=== PATIENT | female | born 1955 | race Caucasian/White ===

== ENCOUNTER 2016-03-21 10:35 | Emergency (ER) | payer OTHER ==
[2016-03-21 10:45] VITALS: PULSE 81; BMI 24.7
[2016-03-21] MEDS ORDERED: KETOROLAC TROMETHAMINE 30 MG/1 ML VIAL IVPUSH ONE (11:20)
[2016-03-21] MEDS ORDERED: SODIUM CHLORIDE 1,000 ML IV ONE (11:20)
--- NOTE | 2016-03-21 11:28 | PDOC ---
History of Present Illness - General History Source: Patient, Old Records Exam Limitations: No Limitations - History of Present Illness Initial Comments: 03/21/16 11:31 The patient is a 60-year-old woman, with a significant past medical history of hypertension, hypercholesterolemia, gastritis, recurrent urinary tract infections, kidney stones (recent outpatient CT scan showed bilateral kidney stones (02/16/2016) and asthma who presents to the emergency department for further evaluation of right flank pain. No trauma. No recent strenuous activity. She reports she was in her usual state of health when she was at home drinking water, coincidentally performing a home 24 hour urine sample when she suddenly experienced right flank pain. She states that her pain has been constant since onset, and has intensified throughout onset (10/04) in severity. She reports associated symptoms of dysuria, described as burning sensations, urinary frequency(output of a few drops) and hematuria (no clots noted). She admits to a history of urinary tract infections and kidney stones s/p kidney stone removal in (1985) and reports her symptoms are consistent with her typical UTIs. She took a Tylenol 3 tablet this morning, without much relief. She denies fever, chills, diaphoresis, generalized weakness. She denies chest pain, shortness of breath, cough She denies abdominal pain, nausea, vomiting, diarrhea, vaginal discharge/ vaginal bleeding Allergies: Morphine. Apples Carrots. Strawberries. Past Surgical History: Appendectomy. CHolecystectomy. Hernia repair. Social History: No tobacco, ETOH and recreational drug use. Primary Care Physician: Hollis Barron [phone] Urologist: Gregory Mckeon [phone] <Genie Abebe - Last Filed: 03/21/16 14:01> <Santiago Taylor - Last Filed: 03/21/16 14:27> - General Chief Complaint: Pain Stated Complaint: LOWER PELVIC PAIN, BLOOD IN URINE Time Seen by Provider: 03/21/16 11:00 Past History <Genie Abebe - Last Filed: 03/21/16 14:01> - Past Medical History Anemia: No Asthma: Yes Cancer: No Cardiac Disorders: Yes CVA: No COPD: No CHF: No Dementia: No Diabetes: No GI Disorders: Yes (gastritis) Disorders: Yes (X5 stones) HTN: Yes Hypercholesterolemia: Yes Kidney Stones: Yes Suicide Attempt (Hx): No Seizures: No Thyroid Disease: Yes - Surgical History Abdominal Surgery: Yes (HERNIA) Appendectomy: Yes Cardiac Surgery: No Cholecystectomy: Yes Lung Surgery: No Neurologic Surgery: No Orthopedic Surgery: No - Reproductive History Cervical CA: No Dysfunctional Uterine Bleeding: No Ectopic : No Endometrial CA: No Polycystic Ovaries: No Tubal Ligation: No - Psycho/Social/Smoking Cessation Hx Anxiety: No Suicidal Ideation: No Smoking History: Never smoked Have you smoked in the past 12 months: No Hx Alcohol Use: No Drug/Substance Use Hx: No Substance Use Type: None <Santiago Taylor - Last Filed: 03/21/16 14:27> - Past Medical History Allergies/Adverse Reactions: Allergies Allergy/AdvReac Type Severity Reaction Status Date / Time morphine Allergy Intermediate Itching Verified 03/21/16 10:45 APPLES Allergy Severe Uncoded 03/21/16 10:45 CARROTS Allergy Severe Uncoded 03/21/16 10:45 STRAWBERRIES Allergy Severe Uncoded 03/21/16 10:45 Home Medications: Ambulatory Orders Duloxetine HCl [Cymbalta -] 60 mg PO DAILY 03/18/13 Omeprazole [Prilosec (RX)] 40 mg PO BID 02/22/15 Cephalexin Monohydrate [Keflex -] 500 mg PO BID #14 capsule 03/21/16 Review of Systems - Review of Systems Constitutional: No: Chills, Fever Respiratory: No: Cough, Shortness of Breath Cardiac (ROS): No: Chest Pain ABD/GI: No: Diarrhea, Nausea, Vomiting : Yes: See HPI, Burning, Dysuria, Flank Pain, Hematuria All Other Systems: Reviewed and Negative <Santiago Taylor - Last Filed: 03/21/16 14:27> *Physical Exam - Vital Signs Last Vital Signs Temp Pulse Resp BP Pulse Ox 98.0 F 81 20 146/86 100 03/21/16 10:42 03/21/16 10:42 03/21/16 10:42 03/21/16 10:42 03/21/16 10:42 - Physical Exam Comments: 03/21/16 11:32 GENERAL: The patient is awake, alert, and fully oriented, in no acute distress. HEAD: Normal with no signs of trauma. EYES: Pupils equal, round and reactive to light, extraocular movements intact, sclera anicteric, conjunctiva clear with no pallor. ENT: Ears normal, nares patent, oropharynx clear without exudates. Moist mucous membranes. NECK: Normal range of motion, supple without lymphadenopathy, JVD, or masses. LUNGS: Breath sounds equal, clear to auscultation bilaterally. No wheeze/ crackles. HEART: Regular rate and rhythm, normal S1 and S2 without murmur or rub. ABDOMEN: Soft, diffuse lower abdominal discomfort to palpation, nondistended. BS wnl. No guarding or rebound. No palpable masses. No hepatosplenomegaly. BACK: +Right CVA tenderness. EXTREMITIES: Normal range of motion, no edema. No clubbing or cyanosis. No cords, erythema, or tenderness. NEUROLOGICAL: Cranial nerves II through XII grossly intact. Normal speech. PSYCH: Normal mood, normal affect. SKIN: Warm, Dry, normal turgor, no rashes or lesions noted. <Genie Abebe - Last Filed: 03/21/16 14:01> - Vital Signs Last Vital Signs Temp Pulse Resp BP Pulse Ox 98.0 F 81 20 146/86 100 03/21/16 10:42 03/21/16 10:42 03/21/16 10:42 03/21/16 10:42 03/21/16 10:42 <Santiago Taylor - Last Filed: 03/21/16 14:27> ED Treatment Course - LABORATORY CBC & Chemistry Diagram: 03/21/16 11:40 03/21/16 11:40 - RADIOLOGY Radiograph Interpretation: 03/21/16 13:24 EXAM: CT/ABDOMEN PELVIS CT W/O CONTR CT IMPRESSION: Axial imaging completed without intravenous and oral contrast with normal lung bases. Cholecystectomy clips noted Normal visualization region of pancreas with no biliary dilation identified No retained stones imaged Symmetry of both kidneys with nonobstructive nephrolithiasis observed in the left kidney. Hyperdense cyst or mass interpolar region left kidney which must be correlated with a renal sonogram. Previous CT scan reviewed from January 2016. Mild hydroureteronephrosis on the right side noted with a 0.3 cm stone lower pole calyx right kidney. Right hydroureter observed with traced ureter to the level of the pelvis accounting for atherosclerotic calcifications in the vessel. Calcified phleboliths are seen in the pelvis. No stones are seen in the region of distal right or left ureter. No stones are imaged in the urinary bladder. <Genie Abebe - Last Filed: 03/21/16 14:01> - LABORATORY CBC & Chemistry Diagram: 03/21/16 11:40 03/21/16 11:40 - RADIOLOGY Radiology Studies Ordered: Category Date Time Status ABDOMEN & PELVIS CT W/O CONTR [CT] Stat CT Scan 03/21/16 11:21 Ordered <KyleejameSantiago - Last Filed: 03/21/16 14:27> Medical Decision Making - Medical Decision Making 03/21/16 13:22 Overhead page to patient's Urologist, Dr. Gregory Mckeon. 03/21/16 13:[address] Mckeon at [phone]. 03/21/16 14:[address] out [address]. Mckeon at [phone]. <Genie Abebe - Last Filed: 03/21/16 14:01> - Medical Decision Making 03/21/16 11:26 A portion of this note was documented by scribe services under my direction. I have reviewed the details of the note, within reason, and agree with the documentation with the following case summary and management plan written by me. 60-year-old female with history of kidney stones and UTI presents with right flank pain since last night associated with urinary frequency/dribbling/ hematuria. No fevers or chills. Afebrile here. Mild discomfort Positive right CVA tenderness, positive lower abdominal tenderness 60-year-old female presents with symptoms that seem most consistent with cystitis, rule out superimposed obstructing stone given her history. Well- appearing without evidence of sepsis. Labs, urinalysis Pain control CT of the abdomen and pelvis Reassess and dispo, is followed by Dr. Melendrez of urology. 03/21/16 13:07 No leukocytosis, chemistries within normal limits. Urinalysis with elevated white blood cells consistent with UTI, CTAP consistent with recently passed stone on the right. Above is consistent with patient's presentation, given no persistently obstructing stone, can be discharged on abx and pain control. 03/21/16 14:15 Patient comfortable, ambulating independently in the ED. Case discussed with Dr. Mckeon, agrees patient can be discharged on antibiotics and follow- up with him in the office. Patient agrees with plan, understands return criteria. <Santiago Taylor - Last Filed: 03/21/16 14:27> *DC/Admit/Observation/Transfer - Attestations Scribe Attestion: 03/21/16 11:32 Documentation prepared by Genie Abebe, acting as medical reviewer for Santiago Taylor MD. <Genie Abebe - Last Filed: 03/21/16 14:01> <Santiago Taylor - Last Filed: 03/21/16 14:27> Diagnosis at time of Disposition: Flank pain, Cystitis, Kidney stone on right side - Discharge Dispostion Disposition: HOME Condition at time of disposition: Improved - Prescriptions Prescriptions: Cephalexin Monohydrate [Keflex -] 500 mg PO BID #14 capsule - Referrals Referrals: Hollis Barron MD [Primary Care Provider] - Gregory Mckeon MD [Staff Physician] - - Patient Instructions Printed Discharge Instructions: DI for Urinary Tract Infection (UTI), DI for Kidney Stones Additional Instructions: Activity as tolerated. Stay hydrated. A urine test shows evidence of infection, take Keflex as prescribed for one week. Blood tests showed no acute abnormalities, but a CAT scan showed that you've likely passed a stone on the right side. Tylenol 1000 mg every 8 hours and/or ibuprofen 600 mg every 8 hours as needed for pain. Continue your medications as previously prescribed by your physician. You should follow up with Dr. Geronimo doctor as soon as possible regarding today's emergency department visit. Return to the emergency department for any new or concerning symptoms, particularly persistent or worsening pain, fevers or chills, difficulty urinating.
[2016-03-21] MEDS ORDERED: KETOROLAC TROMETHAMINE 30 MG/1 ML VIAL ONE (11:39)
[2016-03-21 11:53] LABS: BASOPHIL 0.8 % (0-2.0); EOSINOPHIL 1.5 % (0-4.5); MCH 26.8 pg (25.7-33.7); MCHC 32.8 g/dl (32.0-36.0); MEAN CELL VOLUME 81.9 fl (80-96); PLATELET COUNT 242 K/MM3 (134-434); RDW 13.5 % (11.6-15.6); WHITE BLOOD COUNT 9.3 K/mm3 (4.0-10.0)
[2016-03-21 11:58] LABS: URINE APPEARANCE CLEAR; URINE BILIRUBIN NEGATIVE (NEGATIVE); URINE COLOR STRAW; URINE GLUCOSE (UA) NEGATIVE (NEGATIVE); URINE KETONE NEGATIVE (NEGATIVE); URINE NITRITE NEGATIVE (NEGATIVE); URINE PROTEIN NEGATIVE (NEGATIVE); URINE UROBILINOGEN NEGATIVE E.U./dl (0.2-1.0)
[2016-03-21 12:00] LABS: URINE BLOOD 3+ (NEGATIVE); URINE LEUK ESTERASE 3+ (NEGATIVE)
[2016-03-21 12:04] LABS: URINE BACTERIA FEW /hpf (NONE SEEN); URINE RBC 2 /hpf (0-3); URINE WBC 201 /hpf (3-5)
[2016-03-21] MEDS ORDERED: CEFTRIAXONE 1 GM in DEXTROSE 5%-WATER - 50 ML IVPB ONE (12:17)
[2016-03-21] MEDS ORDERED: CEFTRIAXONE 50 ML ONE (12:19)
[2016-03-21 12:39] LABS: ALBUMIN 3.8 g/dl (3.4-5.0); ALK PHOS 111 U/L (45-117); ANION GAP 7 (8-16); BILIRUBIN,TOTAL 0.5 mg/dL (0.2-1.0); CALCIUM 9.2 mg/dL (8.5-10.1); CO2 28 mmol/L (21-32); CREATININE 0.7 mg/dL (0.55-1.02); GLUCOSE,RANDOM 86 mg/dL (74-106); SGPT/ALT 117 U/L (12-78); TOT PROT 7.5 g/dl (6.4-8.2)
[2016-03-21 12:43] LABS: SGOT/AST 109 U/L (15-37)
[2016-03-21] MEDS ORDERED: HYDROmorphone HCL CARPU-JECT 1 MG/1 ML DISP.SYRIN IVPUSH ONE (13:07)
[2016-03-21] MEDS ORDERED: HYDROmorphone HCL CARPU-JECT 1 MG/1 ML DISP.SYRIN ONE (13:11)
[2016-03-21 14:46] VITALS: BP 140/80; TEMP 98
--- NOTE | 2016-03-22 22:21 | PDOC ---
*Physical Exam - Vital Signs Last Vital Signs Temp Pulse Resp BP Pulse Ox 98 F 81 17 140/80 97 03/21/16 14:45 03/21/16 14:45 03/21/16 14:45 03/21/16 14:45 03/21/16 14:45 ED Treatment Course - LABORATORY CBC & Chemistry Diagram: 03/21/16 11:40 03/21/16 11:40 - ADDITIONAL ORDERS Additional order review: 03/21/16 11:19 Urine Culture - Preliminary Urine - Urine Clean Catch Lactose Fermenting Neg Bacilli 03/21/16 11:40 RBC 4.75 MCV 81.9 MCHC 32.8 RDW 13.5 MPV 9.0 Neutrophils % 73.0 Lymphocytes % 19.4 D Monocytes % 5.3 Eosinophils % 1.5 Basophils % 0.8 - Medications Given in the ED: ED Medications Discontinued Medications Generic Name Dose Route Start Last Admin Trade Name Freq PRN Reason Stop Dose Admin Hydromorphone HCl 0.5 mg 03/21/16 13:07 03/21/16 13:15 Dilaudid Injection - IVPUSH 03/21/16 13:08 0.5 mg ONCE ONE Administration Sodium Chloride 1,000 mls @ 1,000 mls/hr 03/21/16 11:20 03/21/16 11:38 Normal Saline - IV 03/21/16 12:19 1,000 mls/hr ONCE ONE Administration Ceftriaxone Sodium 1 gm/ 50 mls @ 100 mls/hr 03/21/16 12:17 03/21/16 13:07 Dextrose IVPB 03/21/16 12:46 100 mls/hr ONCE ONE Administration Ketorolac Tromethamine 30 mg 03/21/16 11:20 03/21/16 11:52 Toradol Injection - IVPUSH 03/21/16 11:21 30 mg ONCE ONE Administration *DC/Admit/Observation/Transfer Diagnosis at time of Disposition: Flank pain, Cystitis, Kidney stone on right side - Discharge Dispostion Disposition: HOME Condition at time of disposition: Improved - Prescriptions Prescriptions: Cephalexin Monohydrate [Keflex -] 500 mg PO BID #14 capsule - Referrals Referrals: Hollis Barron MD [Primary Care Provider] - Gregory Mckeon MD [Staff Physician] - - Patient Instructions Printed Discharge Instructions: DI for Kidney Stones, DI for Urinary Tract Infection (UTI) Additional Instructions: Activity as tolerated. Stay hydrated. A urine test shows evidence of infection, take Keflex as prescribed for one week. Blood tests showed no acute abnormalities, but a CAT scan showed that you've likely passed a stone on the right side. Tylenol 1000 mg every 8 hours and/or ibuprofen 600 mg every 8 hours as needed for pain. Continue your medications as previously prescribed by your physician. You should follow up with Dr. Geronimo doctor as soon as possible regarding today's emergency department visit. Return to the emergency department for any new or concerning symptoms, particularly persistent or worsening pain, fevers or chills, difficulty urinating. - Post Discharge Activity
--- NOTE | 2016-03-23 10:14 | PDOC ---
Patient Follow-up (Call Back) - Post ED Follow - Up Chief Complaint: Urinary Problem Condition at time of discharge: Improved Disposition at time of original discharge: HOME - Disposition Additional Instructions/Notes: Patient's urine culture shows positive for Escherichia coli which may be resistant to cephalosporins. I called patient at home and states was unable to get the prescription since it was not sent to the right pharmacy. I explained to patient that I sent it to [facility] and patient is to begin Macrobid today. Patient fully understands and I also gave patient the fast track number if she has any difficulty with her prescription today.
== END 2016-03-21 14:58 | disposition home or self-care (01) ==
LOC: JER 10:35
PROC: 3E03329 Introduction of Other Anti-infective into Peripheral Vein, Percutaneous Approach (ICD-10-PCS; principal; 2016-03-21)
PROC: 3E033NZ Introduction of Analgesics, Hypnotics, Sedatives into Peripheral Vein, Percutaneous Approach (ICD-10-PCS; 2016-03-21)
PROC: 3E0333Z Introduction of Anti-inflammatory into Peripheral Vein, Percutaneous Approach (ICD-10-PCS; 2016-03-21)
PROC: 3E0337Z Introduction of Electrolytic and Water Balance Substance into Peripheral Vein, Percutaneous Approach (ICD-10-PCS; 2016-03-21)
DX: N20.0 Calculus of kidney (principal); Z87.442 Personal history of urinary calculi; I10 Essential (primary) hypertension; E78.00 Pure hypercholesterolemia, unspecified; J45.909 Unspecified asthma, uncomplicated; K52.9 Noninfective gastroenteritis and colitis, unspecified
CPT/HCPCS: 36415; 74176-TC; 80053; 81003; 81015; 85025; 87086; 87186; 96361; 96365; 96375; 99284-25

== ENCOUNTER 2017-06-03 08:47 | Inpatient (IN) | payer OTHER ==
[2017-06-03 08:51] VITALS: BMI 28.0
--- NOTE | 2017-06-03 09:34 | PDOC ---
Attending Attestation - Resident Resident Name: Arias Lopez - ED Attending Attestation I have performed the following: I have examined & evaluated the patient, The case was reviewed & discussed with the resident, I agree w/resident's findings & plan, Exceptions are as noted - Medical Decision Making 06/03/17 09:34 61 yo with h/o stone and pyelo here with dysuria and flank pain. plan ua urine cultures. labs and bedside ultrasound evaluate for hydronephrosis. 06/03/17 11:35 Focused ED ultrasound renal, indication: Right-sided flank pain rule out hydronephrosis Bilateral kidneys scanned into planes with curvilinear probe No hydronephrosis noted bilaterally right kidney measured 9.2 cm left kidney length 10.2 cm Bladder scanned into planes no urinary retention bladder volume was 139 mL Impression: Normal renal ultrasound no hydronephrosis <Alondra Boyd - Last Filed: 06/03/17 11:35> - HPI HPI: 06/03/17 09:35 61 yo F kidney stones, pyelonephritis (resistant with Klebsiella and ESBL), HTN , HLD who presents with 3 weeks of dysuria associated R sided flank pain. Patient reports pain feels similar to prior kidney stones. Last reported episode was 1 year ago. Patient endorses nausea and vomiting however denies fever or chills. Allergies: Morphine, Sulfa abx Past surgical hx: Hysterectomy, Hernia repair,Cholecystectomy,Appendectomy, Tonsillectomy,Left cataract Social hx: None PCP: None - Physicial Exam PE: 06/03/17 09:38 GENERAL: Awake, alert, and fully oriented, in no acute distress HEAD: No signs of trauma EYES: PERRLA, EOMI, sclera anicteric, conjunctiva clear ENT: Auricles normal inspection, nares patent, Moist mucosa NECK: Normal ROM, supple, no lymphadenopathy, JVD, or masses LUNGS: Breath sounds equal, clear to auscultation bilaterally. No wheezes, and no crackles HEART: Regular rate and rhythm, normal S1 and S2, no murmurs, rubs or gallops ABDOMEN: Soft, nontender, normoactive bowel sounds. No guarding, no rebound. No masses. +Mild suprapubic tenderness SKIN: Warm, Dry, normal turgor, no rashes or lesions noted. - Medical Decision Making 06/03/17 09:39 Documentation prepared by Charisma Bianchi, acting as medical billing clerk for Alondra Boyd MD <Charisma Bianchi - Last Filed: 06/03/17 11:38>
[2017-06-03] MEDS ORDERED: SODIUM CHLORIDE 1,000 ML IV STA (09:42)
[2017-06-03] MEDS ORDERED: ONDANSETRON 4 MG/2 ML VIAL IVPUSH ONE (09:42)
[2017-06-03] MEDS ORDERED: KETOROLAC TROMETHAMINE 30 MG/1 ML VIAL IVPUSH ONE (09:42)
--- NOTE | 2017-06-03 09:45 | PDOC ---
History of Present Illness <Alondra Boyd - Last Filed: 06/03/17 11:37> - History of Present Illness Initial Comments: 06/03/17 09:43 The patient is a 61 year old female with a history of Kidney Stones and Pyelonephritis who presents for evaluation of right flank pain and dysuria. The patient reports a 3 week history of burning pain on urination with associated right sided sharp flank pain that she states is similar to her prior kidney stones. She notes worsening symptoms over the past week prompting her presentation to the ED for evaluation. She endorses some nausea and lower abdominal discomfort, but otherwise denies fevers, chills, SOB, chest pain, vomiting, or changes with bowel movements. <Arias Lopez - Last Filed: 06/03/17 14:18> - General Chief Complaint: Pain Stated Complaint: KIDNEY STONE Time Seen by Provider: 06/03/17 09:10 Past History <Alondra Boyd - Last Filed: 06/03/17 11:37> - Past Medical History Anemia: No Asthma: Yes Cancer: No Cardiac Disorders: Yes CVA: No COPD: No CHF: No DVT: No Dementia: No Diabetes: No GI Disorders: Yes (gastritis) Disorders: Yes (X5 stones) HTN: Yes Hypercholesterolemia: Yes Kidney Stones: Yes Seizures: No Thyroid Disease: Yes - Surgical History Abdominal Surgery: Yes (HERNIA) Appendectomy: Yes Cardiac Surgery: No Cholecystectomy: Yes Lung Surgery: No Neurologic Surgery: No Orthopedic Surgery: No - Reproductive History Cervical CA: No Dysfunctional Uterine Bleeding: No Ectopic : No Endometrial CA: No Polycystic Ovaries: No Tubal Ligation: No - Suicide/Smoking/Psychosocial Hx Smoking History: Never smoked Have you smoked in the past 12 months: No Number of Cigarettes Smoked Daily: 0 Information on smoking cessation initiated: No Hx Alcohol Use: No Drug/Substance Use Hx: No Substance Use Type: None Hx Substance Use Treatment: No <Arias Lopez - Last Filed: 06/03/17 14:18> - Past Medical History Allergies/Adverse Reactions: Allergies Allergy/AdvReac Type Severity Reaction Status Date / Time morphine Allergy Intermediate Itching Verified 06/03/17 08:48 Sulfa (Sulfonamide Allergy Mild Verified 06/03/17 08:48 Antibiotics) APPLES Allergy Severe Uncoded 06/03/17 08:48 CARROTS Allergy Severe Uncoded 06/03/17 08:48 STRAWBERRIES Allergy Severe Uncoded 06/03/17 08:48 Home Medications: Ambulatory Orders Unobtainable [Unobtainable] 06/03/17 Review of Systems - Review of Systems Comments:: 06/03/17 09:45 Constitutional: No fevers, chills, fatigue, malaise HEENT: No Rhinorrhea, nasal congestion, visual changes Cardiovascular: No chest pain, syncope, palpitations, lightheadedness Respiratory: No Cough, SOB, Hemoptysis, Gastrointestinal: Lower abdominal discomfort, nausea. No Vomiting, Constipation , Diarrhea, Melena Genitourinary: Dysuria, Right sided flank pain. No Frequency, Urgency, Hesitancy , Hematuria, Musculoskeletal: No Myalgia, arthralgia Skin: No rashes, itching, bruising, pallor Neurologic: No Headache, Dizziness, Numbness, Weakness, or Tingling Psychiatric: No Hallucinations. No SI or HI <Arias Lopez - Last Filed: 06/03/17 14:18> *Physical Exam - Vital Signs Last Vital Signs Temp Pulse Resp BP Pulse Ox 98.2 F 70 18 128/77 100 06/03/17 08:48 06/03/17 08:48 06/03/17 08:48 06/03/17 08:48 06/03/17 08:48 <Alondra Boyd - Last Filed: 06/03/17 11:37> - Vital Signs Last Vital Signs Temp Pulse Resp BP Pulse Ox 98.2 F 70 18 128/77 100 06/03/17 08:48 06/03/17 08:48 06/03/17 08:48 06/03/17 08:48 06/03/17 08:48 - Physical Exam Comments: 06/03/17 09:48 General Appearance: Nourished. No Apparent Distress HEENT: EOMI, SUN. No Pharyngeal Erythema, Tonsillar Exudate, Tonsillar Erythema Neck: No Cervical Lymphadenopathy Respiratory/Chest: Lungs Clear, Normal Breath Sounds. No Crackles, Rales, Rhonchi, Wheezing Cardiovascular: Regular Rhythm, Regular Rate. No Murmur, Gallops, Rubs Gastrointestinal/Abdominal: Normal Bowel Sounds, Soft. Mild suprapubic tenderness to palpation. No Guarding, Rebound, Musculoskeletal: R CVA Tenderness on exam. No L CVA Tenderness Extremity: Normal Capillary Refill Integumentary: Normal Color, Dry, Warm Neurologic: Fully Oriented, Alert, Normal Mood/Affect, Normal Response, <Arias Lopez - Last Filed: 06/03/17 14:18> Procedures - Bedside Ultrasound Other: Renal US - no hydronephrosis. bladder nondistended <Alondra Boyd - Last Filed: 06/03/17 11:37> ED Treatment Course - LABORATORY CBC & Chemistry Diagram: 06/03/17 09:38 06/03/17 09:38 - ADDITIONAL ORDERS Additional order review: Laboratory Results 06/03/17 06/03/17 10:15 09:38 Sodium 138 Potassium 4.9 Chloride 104 Carbon Dioxide 30 Anion Gap 4 L BUN 14 Creatinine 0.7 Creat Clearance w eGFR > 60 Random Glucose 98 Calcium 9.1 Total Bilirubin 0.2 D AST 23 ALT 29 Alkaline Phosphatase 92 Total Protein 7.7 Albumin 3.7 Urine Color Ltyellow Urine Appearance Clear Urine pH 8.0 Ur Specific [place] 1.009 Urine Protein Negative Urine Glucose (UA) Negative Urine Ketones Negative Urine Blood Negative Urine Nitrite Negative Urine Bilirubin Negative Urine Urobilinogen Negative Ur Leukocyte Esterase 2+ H Urine WBC (Auto) 30 Urine RBC (Auto) <1 Ur Epithelial Cells Rare Urine Bacteria Rare Urine Mucus Rare Urine Yeast Road Production General Manager 06/03/17 09:38 RBC 5.23 H MCV 81.0 MCHC 32.9 RDW 14.2 MPV 8.7 Neutrophils % 52.5 Lymphocytes % 36.8 D Monocytes % 6.8 Eosinophils % 3.0 Basophils % 0.9 - Medications Given in the ED: ED Medications Discontinued Medications Generic Name Dose Route Start Last Admin Trade Name Andrewq PRN Reason Stop Dose Admin Sodium Chloride 1,000 mls @ 1,000 mls/hr 06/03/17 09:42 06/03/17 10:00 Normal Saline - IV 06/03/17 10:41 1,000 mls/hr ASDIR STA Administration Ketorolac Tromethamine 30 mg 06/03/17 09:42 06/03/17 09:59 Toradol Injection - IVPUSH 06/03/17 09:43 30 mg ONCE ONE Administration Ondansetron HCl 4 mg 06/03/17 09:42 06/03/17 10:00 Zofran Injection IVPUSH 06/03/17 09:43 4 mg ONCE ONE Administration <OliverAlondra - Last Filed: 06/03/17 11:37> - LABORATORY CBC & Chemistry Diagram: 06/03/17 09:38 06/03/17 09:38 <Arias Lopez - Last Filed: 06/03/17 14:18> Medical Decision Making - Medical Decision Making 06/03/17 09:49 The patient is a 61 year old female with a history of Kidney Stones and Pyelonephritis who presents for evaluation of right flank pain and dysuria. Differential includes but is not limited to: UTI, Pyelonephritis, Kidney Stones , infections, metabolic derangement. Given the patient's history of kidney stones and physical exam, it is likely her symptoms may be due to a UTI and Kidney stone. We will obtain a cbc, cmp, ua, urine culture to evaluation further. We will treat with toradol, zofran, iv fluids and continue to monitor and reassess. 06/03/17 14:14 CBC, cmp are unremarkable. UA demonstrates positive leuk esterase and wbc to 30. Given the patient's UA and physical exam, it is likely her symptoms are due to a pyelonephritis. The patient has a history of ESBL E. Coli from previous cultures and will require admission for iv antibiotics. We discussed the case with Dr. Razo who agrees with iv antibiotics and has recommended ertapenem. We discussed the case with the hospitalist team who accepted the patient for admission. <Arias Lopez - Last Filed: 06/03/17 14:18> *DC/Admit/Observation/Transfer <OliverAlondra - Last Filed: 06/03/17 11:37> - Discharge Dispostion Admit: Yes <Arias Lopez - Last Filed: 06/03/17 14:18> Diagnosis at time of Disposition: Pyelonephritis Urinary tract infection Qualifiers: Urinary tract infection type: site unspecified Hematuria presence: without hematuria Qualified Code(s): N39.0 - Urinary tract infection, site not specified - Discharge Dispostion Condition at time of disposition: Stable
[2017-06-03] MEDS ORDERED: ONDANSETRON 4 MG/2 ML VIAL ONE (09:56)
[2017-06-03] MEDS ORDERED: KETOROLAC TROMETHAMINE 30 MG/1 ML VIAL ONE (09:56)
[2017-06-03 10:21] LABS: BASO % 0.9 % (0-2.0); HEMATOCRIT 42.4 % (32.4-45.2); HEMOGLOBIN 13.9 GM/dL (10.7-15.3); LYMPH % 36.8 % (8-40); MCH 26.6 pg (25.7-33.7); MCHC 32.9 g/dl (32.0-36.0); MEAN PLT VOLUME 8.7 fl (7.5-11.1); MONO % 6.8 % (3.8-10.2); NEUT % 52.5 % (42.8-82.8); PLATELET COUNT 234 K/MM3 (134-434); RBC 5.23 M/mm3 (3.60-5.2); RDW 14.2 % (11.6-15.6); WHITE BLOOD COUNT 4.1 K/mm3 (4.0-10.0)
[2017-06-03 10:27] LABS: ALBUMIN 3.7 g/dl (3.4-5.0); ANION GAP 4 (8-16); CALCIUM 9.1 mg/dL (8.5-10.1); CHLORIDE 104 mmol/L (98-107); CO2 30 mmol/L (21-32); CREATININE 0.7 mg/dL (0.55-1.02); GLUCOSE,RANDOM 98 mg/dL (74-106); POTASSIUM 4.9 mmol/L (3.5-5.1); SGOT/AST 23 U/L (15-37); SGPT/ALT 29 U/L (12-78); SODIUM 138 mmol/L (136-145)
[2017-06-03 10:30] LABS: ALK PHOS 92 U/L (45-117); BILIRUBIN,TOTAL 0.2 mg/dL (0.2-1.0); BLOOD UREA NITROGEN 14 mg/dL (7-18); TOT PROT 7.7 g/dl (6.4-8.2)
[2017-06-03 10:32] LABS: URINE APPEARANCE CLEAR; URINE BILIRUBIN NEGATIVE (<2.0 mg/dL); URINE BLOOD NEGATIVE (NEGATIVE); URINE COLOR LTYELLOW; URINE GLUCOSE (UA) NEGATIVE (NEGATIVE); URINE KETONE NEGATIVE (NEGATIVE); URINE NITRITE NEGATIVE (NEGATIVE); URINE PROTEIN NEGATIVE (NEGATIVE); URINE UROBILINOGEN NEGATIVE mg/dL (0.2-1.0)
[2017-06-03 10:34] LABS: URINE LEUK ESTERASE 2+ (NEGATIVE)
[2017-06-03 10:44] LABS: EPI CELLS RARE /HPF (FEW); URINE BACTERIA RARE /hpf (NONE SEEN); URINE MUCUS RARE
[2017-06-03] MEDS ORDERED: ERTAPENEM SODIUM 1 GM/50 ML PRE-DOCKED IVPB ONE (12:50)
[2017-06-03] MEDS ORDERED: ERTAPENEM SODIUM 1 GM VIAL ONE (13:23)
--- NOTE | 2017-06-03 14:03 | HP ---
CHIEF COMPLAINT: " Right sided flank pain, burning urination " PCP: Hollis Barron Folding Machine Feeder: Dr. Shannan Yun HISTORY OF PRESENT ILLNESS: Patient is a 61 year old female presented to the ED with the chief complaints of " Right sided flank pain, burning urination " x 3 weeks. As per the patient , she has had frequent h/o UTI's, Pyelonephritis and Kidney stones; last pyelo was 04/18/16-was admitted at [facility] was treated for ESBL with Ertapenam. Patient started having fever at home (not measured), chills, right sided flank pain 10/10, non radiating, intermittent, relieved with tylenol +codeine. Pain was also associated with nausea, dysuria, frequent urination but no hematuria or urinary incontinence. Pain progressively got worse hence came in to the ED for further evaluation. Denies headache, trauma, loc, sick contacts, abdominal pain, vomiting. Bowel habit normal. Sleep normal. Appetite decreased. ER course was notable for: (1) Afebrile, hemodynamically stable, no leukocytosis. UA: 2 + Leukocyte esterase, 30 WBC (2) No imaging (3) IV Nacl; Ketorolac, Ertapenam. Recent Travel: None PAST MEDICAL HISTORY: Kidney stones since 30yrs; Hypertension, Hyperlipidemia, Anxiety, Hyperparathyroidism s/p parathyroidectomy PAST SURGICAL HISTORY: Hysterectomy; Hernia repair; Cholecystectomy; Appendectomy; Tonsillectomy; Left cataract; Hyperparathyroidism s/p parathyroidectomy Social History: Smoking: Quit 15 years ago Alcohol: Denies Drugs: Denies Family History: Non contributory Allergies morphine Allergy (Intermediate, Verified 06/03/17 08:48) Itching Sulfa (Sulfonamide Antibiotics) Allergy (Mild, Verified 06/03/17 08:48) APPLES Allergy (Severe, Uncoded 06/03/17 08:48) "THROAT CLOSES" CARROTS Allergy (Severe, Uncoded 06/03/17 08:48) THROAT CLOSES STRAWBERRIES Allergy (Severe, Uncoded 06/03/17 08:48) "THROAT CLOSES" HOME MEDICATIONS: Home Medications Medication Instructions Recorded Unobtainable [Unobtainable] 06/03/17 REVIEW OF SYSTEMS CONSTITUTIONAL: Present: fever, chills Absent: diaphoresis, generalized weakness, malaise, loss of appetite, weight change HEENT: Absent: rhinorrhea, nasal congestion, throat pain, throat swelling, difficulty swallowing, mouth swelling, ear pain, eye pain, visual changes CARDIOVASCULAR: Absent: chest pain, syncope, palpitations, irregular heart rate, lightheadedness , peripheral edema RESPIRATORY: Absent: cough, shortness of breath, dyspnea with exertion, orthopnea, wheezing, stridor, hemoptysis GASTROINTESTINAL: Present: nausea Absent: abdominal pain, abdominal distension, vomiting, diarrhea, constipation, melena, hematochezia GENITOURINARY: Present: dysuria, frequency, flank pain Absent: urgency, hesitancy, hematuria, genital pain MUSCULOSKELETAL: Absent: myalgia, arthralgia, joint swelling, back pain, neck pain SKIN: Absent: rash, itching, pallor HEMATOLOGIC/IMMUNOLOGIC: Absent: easy bleeding, easy bruising, lymphadenopathy, frequent infections ENDOCRINE: Absent: unexplained weight gain, unexplained weight loss, heat intolerance, cold intolerance NEUROLOGIC: Absent: headache, focal weakness or paresthesias, dizziness, unsteady gait, seizure, mental status changes, bladder or bowel incontinence PSYCHIATRIC: Absent: anxiety, depression, suicidal or homicidal ideation, hallucinations. PHYSICAL EXAMINATION Vital Signs - 24 hr 06/03/17 08:48 Temperature 98.2 F Pulse Rate 70 Respiratory 18 Rate Blood Pressure 128/77 O2 Sat by Pulse 100 Oximetry (%) GENERAL: Patient is comfortably sitting in a chair, Awake, alert, and fully oriented, in no acute distress. HEAD: Normal with no signs of trauma. EYES: EOM intact, no pallor or icterus. EARS, NOSE, THROAT: Ears normal. Moist mucous membranes. NECK: Supple. LUNGS: B/L lungs clear, No wheezes, and no crackles. No accessory muscle use. HEART: Regular rate and rhythm, normal S1 and S2 without murmur. ABDOMEN: Soft, nontender, not distended, normoactive bowel sounds, no guarding, no rebound, no masses. No hepatomegaly or splenomegaly. MUSCULOSKELETAL: Normal range of motion at all joints. No bony deformities or tenderness. Right CVA tenderness. UPPER EXTREMITIES: 2+ pulses, warm, well-perfused. No cyanosis. No clubbing. No peripheral edema. LOWER EXTREMITIES: 2+ pulses, warm, well-perfused. No calf tenderness. No peripheral edema. NEUROLOGICAL: Normal speech. Normal gait. PSYCHIATRIC: Cooperative. Good eye contact. Appropriate mood and affect. SKIN: Warm, dry, normal turgor, no rashes or lesions noted, normal capillary refill. Laboratory Results - last 24 hr 06/03/17 06/03/17 06/03/17 09:38 09:38 10:15 WBC 4.1 RBC 5.23 H Hgb 13.9 Hct 42.4 MCV 81.0 MCH 26.6 MCHC 32.9 RDW 14.2 Plt Count 234 MPV 8.7 Neutrophils % 52.5 Lymphocytes % 36.8 D Monocytes % 6.8 Eosinophils % 3.0 Basophils % 0.9 Sodium 138 Potassium 4.9 Chloride 104 Carbon Dioxide 30 Anion Gap 4 L BUN 14 Creatinine 0.7 Creat Clearance w eGFR > 60 Random Glucose 98 Calcium 9.1 Total Bilirubin 0.2 D AST 23 ALT 29 Alkaline Phosphatase 92 Total Protein 7.7 Albumin 3.7 Urine Color Ltyellow Urine Appearance Clear Urine pH 8.0 Ur Specific [place] 1.009 Urine Protein Negative Urine Glucose (UA) Negative Urine Ketones Negative Urine Blood Negative Urine Nitrite Negative Urine Bilirubin Negative Urine Urobilinogen Negative Ur Leukocyte Esterase 2+ H Urine WBC (Auto) 30 Urine RBC (Auto) <1 Ur Epithelial Cells Rare Urine Bacteria Rare Urine Mucus 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 # Possible Pyelonephritis, H/O ESBL H/o frequent pyelonephritis-last pyelo 04/18/16, presents with fever, chills, rigors, burning urination, Right sided CVA tenderness UA showed 2 + Leukocyte esterase, 30 WBC Urine culture pending Admit Inpatient for IV antibiotics IV NS @ 100mls/hr x 1 bag then 75mls/hr IV Ertapenam- ID consult appreciated; has h/o ESBL 04/18/[address] Mckeon consult requested. Pt last saw him at the office a couple of months ago. Change antibiotics as per c/s. No imaging done at this time. If she spikes fever, has worsening flank pain, would consider CT abdomen/Pelvis. Last CT abd/Pelvis 08/19/16: 2 cm Right adrenal adenomal. B/L non obstructing renal calculi. # Hypertension-controlled # Hyperlipidemia # Anxiety # Asthma-not in exacerbation # All medications needs to be confirmed with pharmacy. To be resumed once confirmed. # FEN IV NS @ 100mls/hr then 75 mls.hr Electrolytes WNL Sodium controlled diet # Prophylaxis For DVT: On Heparin 5000 IU sq TID For GI: Not indicated # Code Status: Full Code # Dispo: Duration of stay 2-3 days for IV Antibiotics. Illness, Investigation and Plan of care explained to the patient. She verbalized understanding. Case discussed with Dr. Ely. Visit type - Emergency Visit Emergency Visit: Yes ED Registration Date: 06/03/17 Care time: The patient presented to the Emergency Department on the above date and was hospitalized for further evaluation of their emergent condition. - New Patient This patient is new to me today: Yes Date on this admission: 06/03/17 - Critical Care Critical Care patient: No
--- NOTE | 2017-06-03 14:05 | CONSULT ---
Consultation: REQUESTING PROVIDER: CONSULT REQUEST: We have been asked to medically evaluate this patient for pyelonephritis. HISTORY OF PRESENT ILLNESS: Pt is a 61 y/o F with PMH kidney stones, ESBL UTI, and secondary pyelonephritis seen at this facility by ID. On that occasion, she was treated with Ertapenem and sent home with a PICC and later switched to Nitrofurantoin. Per record, pt sees Dr. Peacock who is aware of her issue and previously had thought it not to be related to UTI. On this visit, pt presents with several weeks of Right flank and abdominal pain which is sharp and severe. Pain has been worsening over the last week prompting her ED visit. Pt denies blood in urine, fever, chills, nausea, vomiting, sick contacts. Pt does not work. In ED pt had bedside ultrasound done by ED staff. No evidence of hydronephrosis at that time. REVIEW OF SYSTEMS: CONSTITUTIONAL: Absent: fever, chills, diaphoresis, generalized weakness, malaise, loss of appetite, weight change HEENT: Absent: rhinorrhea, nasal congestion, throat pain, throat swelling, difficulty swallowing, mouth swelling, ear pain, eye pain, visual changes CARDIOVASCULAR: Absent: chest pain, syncope, palpitations, irregular heart rate, lightheadedness , peripheral edema RESPIRATORY: Absent: cough, shortness of breath, dyspnea with exertion, orthopnea, wheezing, stridor, hemoptysis GASTROINTESTINAL:abdominal pain Absent: , abdominal distension, nausea, vomiting, diarrhea, constipation, melena , hematochezia GENITOURINARY: flank pain Absent: dysuria, frequency, urgency, hesitancy, hematuria,, genital pain MUSCULOSKELETAL: Absent: myalgia, arthralgia, joint swelling, back pain, neck pain SKIN: Absent: rash, itching, pallor HEMATOLOGIC/IMMUNOLOGIC: Absent: easy bleeding, easy bruising, lymphadenopathy, frequent infections ENDOCRINE: Absent: unexplained weight gain, unexplained weight loss, heat intolerance, cold intolerance NEUROLOGIC: Absent: headache, focal weakness or paresthesias, dizziness, unsteady gait, seizure, mental status changes, bladder or bowel incontinence PSYCHIATRIC: Absent: anxiety, depression, suicidal or homicidal ideation, hallucinations. PHYSICAL EXAMINATION Vital Signs - 24 hr 06/03/17 08:48 Temperature 98.2 F Pulse Rate 70 Respiratory 18 Rate Blood Pressure 128/77 O2 Sat by Pulse 100 Oximetry (%) GENERAL: Awake, alert, and fully oriented, in no acute distress. HEAD: Normal with no signs of trauma. EYES: Pupils equal, round and reactive to light, sclera anicteric, conjunctiva clear. No lid lag. EARS, NOSE, THROAT: oropharynx clear without exudates. Moist mucous membranes. NECK: Normal range of motion, supple without lymphadenopathy, JVD, or masses. LUNGS: Breath sounds equal, clear to auscultation bilaterally. No wheezes, and no crackles. No accessory muscle use. HEART: Regular rate and rhythm, normal S1 and S2 without murmur, rub or gallop. ABDOMEN: Soft, RIGHT FLANK PUNCH TENDERNESS, not distended, normoactive bowel sounds, no guarding, no rebound, no masses. No hepatomegaly or splenomegaly. MUSCULOSKELETAL: Normal range of motion at all joints. No bony deformities or tenderness. No CVA tenderness. UPPER EXTREMITIES: 2+ pulses, warm, well-perfused. No cyanosis. No clubbing. Cap refill <2 seconds. No peripheral edema. LOWER EXTREMITIES: 2+ pulses, warm, well-perfused. No calf tenderness. No peripheral edema. NEUROLOGICAL: Cranial nerves II-XII intact. Normal speech. PSYCHIATRIC: Cooperative. Good eye contact. Appropriate mood and affect. SKIN: Warm, dry, normal turgor, no rashes or lesions noted. Laboratory Results - last 24 hr 06/03/17 06/03/17 06/03/17 09:38 09:38 10:15 WBC 4.1 RBC 5.23 H Hgb 13.9 Hct 42.4 MCV 81.0 MCH 26.6 MCHC 32.9 RDW 14.2 Plt Count 234 MPV 8.7 Neutrophils % 52.5 Lymphocytes % 36.8 D Monocytes % 6.8 Eosinophils % 3.0 Basophils % 0.9 Sodium 138 Potassium 4.9 Chloride 104 Carbon Dioxide 30 Anion Gap 4 L BUN 14 Creatinine 0.7 Creat Clearance w eGFR > 60 Random Glucose 98 Calcium 9.1 Total Bilirubin 0.2 D AST 23 ALT 29 Alkaline Phosphatase 92 Total Protein 7.7 Albumin 3.7 Urine Color Ltyellow Urine Appearance Clear Urine pH 8.0 Ur Specific [place] 1.009 Urine Protein Negative Urine Glucose (UA) Negative Urine Ketones Negative Urine Blood Negative Urine Nitrite Negative Urine Bilirubin Negative Urine Urobilinogen Negative Ur Leukocyte Esterase 2+ H Urine WBC (Auto) 30 Urine RBC (Auto) <1 Ur Epithelial Cells Rare Urine Bacteria Rare Urine 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 Thank you for this consultative opportunity. Visit type - Emergency Visit Emergency Visit: Yes ED Registration Date: 06/03/17 Care time: The patient presented to the Emergency Department on the above date and was hospitalized for further evaluation of their emergent condition. - New Patient This patient is new to me today: Yes Date on this admission: 06/04/17 - Critical Care Critical Care patient: No
[2017-06-03] MEDS ORDERED: ONDANSETRON 4 MG/2 ML VIAL IVPUSH PRN (14:10)
[2017-06-03] MEDS ORDERED: ACETAMINOPHEN 325 MG TABLET (FP) PO PRN (14:12)
[2017-06-03] MEDS ORDERED: KETOROLAC TROMETHAMINE 10 MG TABLET PO PRN ×2 (14:14→16:59)
[2017-06-03] MEDS ORDERED: SODIUM CHLORIDE 1,000 ML IV SCH (14:15)
--- NOTE | 2017-06-03 14:33 | HP ---
CHIEF COMPLAINT: right flank pain PCP: Hollis Barron HISTORY OF PRESENT ILLNESS: The patient is a 61 yo f w/ PMH hyperparathryoid s/p resection, recurrent kidney stones and pyelonephritis (grew ESBL in the past) who comes to the ED c/ o right sided flank pain. The patient described a 3 week hx of burning on urination as well as frequency and incomplete voiding. Her symptoms became progressively worse and became associated with a sharp, 10/10 intermittent right sided flank pain which did not radiate. The patient took 1/2 of a Tylenol #3 at home, which she said improved her symptoms. The patient denies any exacerbating factors. The pain got worse and became associated with nausea and chills, prompting her to come to the ER for evaluation. The patient states that her current symptoms were identical to her previous episodes of pyelonephritis. Patient denies fever, abdominal pain, chest pain, SOB, recent travel or sick contacts. ER course was notable for: (1) toradol and zofran (2) ertapenem, 1L NS (3) UA w/ 3+leuk esterase, 30 wbc and rare bacteria Recent Travel: none PAST MEDICAL HISTORY: Asthma, Hyperparathryoidism, HTN Kidney stones Pyelonephritis PAST SURGICAL HISTORY: Hernia repair appendectomy cholecytectomy parahyroid resecion x3 Social History: Smoking: denies Alcohol: denies Drugs: denies Family History: non-contributory Allergies morphine Allergy (Intermediate, Verified 06/03/17 08:48) Itching Sulfa (Sulfonamide Antibiotics) Allergy (Mild, Verified 06/03/17 08:48) APPLES Allergy (Severe, Uncoded 06/03/17 08:48) "THROAT CLOSES" CARROTS Allergy (Severe, Uncoded 06/03/17 08:48) THROAT CLOSES STRAWBERRIES Allergy (Severe, Uncoded 06/03/17 08:48) "THROAT CLOSES" HOME MEDICATIONS: Home Medications Medication Instructions Recorded Unobtainable [Unobtainable] 06/03/17 REVIEW OF SYSTEMS CONSTITUTIONAL: Absent: fever, diaphoresis, generalized weakness, malaise, loss of appetite, weight change HEENT: Absent: rhinorrhea, nasal congestion, throat pain, throat swelling, difficulty swallowing, mouth swelling, ear pain, eye pain, visual changes CARDIOVASCULAR: Absent: chest pain, syncope, palpitations, irregular heart rate, lightheadedness , peripheral edema RESPIRATORY: Absent: cough, shortness of breath, dyspnea with exertion, orthopnea, wheezing, stridor, hemoptysis GASTROINTESTINAL: Absent: abdominal pain, abdominal distension, vomiting, diarrhea, constipation, melena, hematochezia GENITOURINARY: Absent: hematuria, genital pain MUSCULOSKELETAL: Absent: myalgia, arthralgia, joint swelling, back pain, neck pain SKIN: Absent: rash, itching, pallor HEMATOLOGIC/IMMUNOLOGIC: Absent: easy bleeding, easy bruising, lymphadenopathy, frequent infections ENDOCRINE: Absent: unexplained weight gain, unexplained weight loss, heat intolerance, cold intolerance NEUROLOGIC: Absent: headache, focal weakness or paresthesias, dizziness, unsteady gait, seizure, mental status changes, bladder or bowel incontinence PSYCHIATRIC: Absent: anxiety, depression, suicidal or homicidal ideation, hallucinations. PHYSICAL EXAMINATION Vital Signs - 24 hr 06/03/17 08:48 Temperature 98.2 F Pulse Rate 70 Respiratory 18 Rate Blood Pressure 128/77 O2 Sat by Pulse 100 Oximetry (%) GENERAL: Awake, alert, and fully oriented, in no acute distress. HEAD: Normal with no signs of trauma. NECK: Normal range of motion, supple without lymphadenopathy, JVD, or masses. LUNGS: Breath sounds equal, clear to auscultation bilaterally. No wheezes, and no crackles. No accessory muscle use. HEART: Regular rate and rhythm, normal S1 and S2 without murmur, rub or gallop. ABDOMEN: Soft, nontender, not distended, normoactive bowel sounds, no guarding, no rebound, no masses. There is tenderness to palpation at the right CVA. UPPER EXTREMITIES: 2+ pulses, warm, well-perfused. No cyanosis. No clubbing. No peripheral edema. LOWER EXTREMITIES: 2+ pulses, warm, well-perfused. No calf tenderness. No peripheral edema. NEUROLOGICAL: Cranial nerves II-X intact. Normal speech. Normal gait. PSYCHIATRIC: Cooperative. Good eye contact. Appropriate mood and affect. SKIN: Warm, dry, normal turgor, no rashes or lesions noted, normal capillary refill. Laboratory Results - last 24 hr 06/03/17 06/03/17 06/03/17 09:38 09:38 10:15 WBC 4.1 RBC 5.23 H Hgb 13.9 Hct 42.4 MCV 81.0 MCH 26.6 MCHC 32.9 RDW 14.2 Plt Count 234 MPV 8.7 Neutrophils % 52.5 Lymphocytes % 36.8 D Monocytes % 6.8 Eosinophils % 3.0 Basophils % 0.9 Sodium 138 Potassium 4.9 Chloride 104 Carbon Dioxide 30 Anion Gap 4 L BUN 14 Creatinine 0.7 Creat Clearance w eGFR > 60 Random Glucose 98 Calcium 9.1 Total Bilirubin 0.2 D AST 23 ALT 29 Alkaline Phosphatase 92 Total Protein 7.7 Albumin 3.7 Urine Color Ltyellow Urine Appearance Clear Urine pH 8.0 Ur Specific [place] 1.009 Urine Protein Negative Urine Glucose (UA) Negative Urine Ketones Negative Urine Blood Negative Urine Nitrite Negative Urine Bilirubin Negative Urine Urobilinogen Negative Ur Leukocyte Esterase 2+ H Urine WBC (Auto) 30 Urine RBC (Auto) <1 Ur Epithelial Cells Rare Urine Bacteria Rare Urine 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 #Right flank pain and dysuria 2/2 pyelonephritis. -Positive UA -Ucx pending -ID consulted; suggest ertapenem -Tylenol and toradol for pain control -zofran PRN -Urology consult -NS @ 100 x 1 bag, then at 75 -s/p 1L NS in ED -isolation precautions due to hx ESBL #HTN -C/w home Norvasc 5mg #asthma -PRN nebs #HLD -c/w lipitor 20mg HS #Anxiety -c/w home Abilify 5mg HS -c/w home xanax .5mg TID -c/w home ambien 10mg HS #Depression -c/w lexapro 20mg daily #FEN -NS @ 100 for 1 bag, then @75 -monitor lytes -sodium controlled diet #Prophy -Hep SQ 5kU TID #Dispo -admit to med surg Visit type - Emergency Visit Emergency Visit: Yes ED Registration Date: 06/03/17 Care time: The patient presented to the Emergency Department on the above date and was hospitalized for further evaluation of their emergent condition. - New Patient This patient is new to me today: Yes Date on this admission: 06/03/17 - Critical Care Critical Care patient: No Hospitalist Screening - Colonoscopy Questionnaire Colonoscopy Questionnaire: Colonoscopy Questionnaire - Patient: 50 - 75 years old and never had a screening colonoscopy: Unknown History of colon or rectal polyps, or CA: Unknown History of IBD, Crohn's disease or UC: Unknown History of abdominal radiation therapy as a child: Unknown - Relative: 1 with colon or rectal CA, or polyps at age 60 or younger: Unknown Colon or rectal CA diagnosed at age 45 or younger: Unknown Multiple relatives with colon or rectal CA: Unknown - Outcome: Screening Result: Negative Screen
--- NOTE | 2017-06-03 14:45 | PN ---
Teaching Attending Note Name of Resident: Dante Crump ATTENDING PHYSICIAN STATEMENT I saw and evaluated the patient. I reviewed the resident's note and discussed the case with the resident. I agree with the resident's findings and plan as documented. SUBJECTIVE: Complains right flank pain dysuria difficulty voiding OBJECTIVE: Right CVAT ASSESSMENT AND PLAN: Microbiology 04/18/16 12:00 Urine - Urine Clean Catch Urine Culture - Final Escherichia Coli Esbl Hot Saw Helper 03/21/16 11:19 Urine - Urine Clean Catch Urine Culture - Final Escherichia Coli Esbl Hot Saw Helper Laboratory Tests 06/03/17 06/03/17 06/03/17 09:38 09:38 10:15 WBC 4.1 Hgb 13.9 Hct 42.4 Plt Count 234 BUN 14 Creatinine 0.7 Ur Leukocyte Esterase 2+ H Urine WBC (Auto) 30 Urine RBC (Auto) <1 Plan Cultures and Ertepenem 1 gram daily Contact isolation Urology evaluation Rigoberto PELAEZ
--- NOTE | 2017-06-03 18:00 | PN ---
Teaching Attending Note Name of Resident: Jesus Loyola ATTENDING PHYSICIAN STATEMENT I saw and evaluated the patient. I reviewed the resident's note and discussed the case with the resident. I agree with the resident's findings and plan as documented. SUBJECTIVE: This is a 61 year old woman with a history of HTN, hyperlipidemia, kidney stones, pyelonephritis, ESBL E. coli UTI, depression, anxiety who comes to the ED complaining of right flank pain. She reports urinary frequency and dysuria x 3 weeks. The symptoms worsened and she developed sharp right flank pain. She had improvement with Tylenol #3. She has had nausea and chills but denies fever. OBJECTIVE: Vital Signs Period Temp Pulse Resp BP Sys/[place] Pulse Ox Last 24 Hr 98.2 F-98.5 F 69-72 18-140 128-134/76-77 100 HEART: S1S2, RRR LUNGS: Clear ABDOMEN: Soft, non-tender, non-distended, normal BS, (+) right CVA tenderness EXTREMITIES: No edema Laboratory Tests 06/03/17 06/03/17 06/03/17 09:38 09:38 10:15 WBC 4.1 RBC 5.23 H Hgb 13.9 Hct 42.4 MCV 81.0 MCH 26.6 MCHC 32.9 RDW 14.2 Plt Count 234 MPV 8.7 Neutrophils % 52.5 Lymphocytes % 36.8 D Monocytes % 6.8 Eosinophils % 3.0 Basophils % 0.9 Sodium 138 Potassium 4.9 Chloride 104 Carbon Dioxide 30 Anion Gap 4 L BUN 14 Creatinine 0.7 Creat Clearance w eGFR > 60 Random Glucose 98 Calcium 9.1 Total Bilirubin 0.2 D AST 23 ALT 29 Alkaline Phosphatase 92 Total Protein 7.7 Albumin 3.7 Urine Color Ltyellow Urine Appearance Clear Urine pH 8.0 Ur Specific [place] 1.009 Urine Protein Negative Urine Glucose (UA) Negative Urine Ketones Negative Urine Blood Negative Urine Nitrite Negative Urine Bilirubin Negative Urine Urobilinogen Negative Ur Leukocyte Esterase 2+ H Urine WBC (Auto) 30 Urine RBC (Auto) <1 Ur Epithelial Cells Rare Urine Bacteria Rare Urine 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 coli UTI, depression, anxiety who presented to the ED with right flank pain, dysuria, urinary frequency, nausea,and chills. 1. UTI, possible acute pyelonephritis. - Start Invanz as patient has history of ESBL E. coli - Follow up urine culture 2. HTN - Continue Norvasc 3. Hyperlipidemia - Continue Lipitor 4. Depression/anxiety - Continue Lexapro, Abilify, Xanax
--- NOTE | 2017-06-03 18:04 | CON.GU ---
Consult - History of Present Illness History of Present Illness: 61 yo female with h/o recurrent uti and nephrolithiasis. Now admitted with fever , rt flank pain, urgency, dysuria. renal sono without hydro - Past Medical History Pulmonary: Yes: Asthma Renal/: Yes: Renal Calculi, UTI - Alcohol/Substance Use Hx Alcohol Use: No - Smoking History Smoking history: Never smoked Have you smoked in the past 12 months: No Aproximately how many cigarettes per day: 0 - Social History Usual Living Arrangement: With Child Home Medications - Allergies Allergies/Adverse Reactions: Allergies Allergy/AdvReac Type Severity Reaction Status Date / Time morphine Allergy Intermediate Itching Verified 06/03/17 08:48 Sulfa (Sulfonamide Allergy Mild Verified 06/03/17 08:48 Antibiotics) APPLES Allergy Severe Uncoded 06/03/17 08:48 CARROTS Allergy Severe Uncoded 06/03/17 08:48 STRAWBERRIES Allergy Severe Uncoded 06/03/17 08:48 - Home Medications Home Medications: Ambulatory Orders Alprazolam [Xanax] 0.5 mg PO TID 06/03/17 Amlodipine Besylate [Norvasc -] 5 mg PO DAILY 06/03/17 Aripiprazole [Abilify] 5 mg PO HS 06/03/17 Atorvastatin Calcium [Lipitor] 20 mg PO HS 06/03/17 Escitalopram Oxalate [Lexapro -] 20 mg PO DAILY 06/03/17 Zolpidem Tartrate 10 mg PO HS 06/03/17 Family Disease History - Family Disease History Family Disease History: CA: Grandparent, Father, Mother Physical Exam- Vital Signs: Vital Signs Temperature 98.5 F 06/03/17 15:51 Pulse Rate 72 06/03/17 15:51 Respiratory Rate 18 06/03/17 15:51 Blood Pressure 134/76 06/03/17 15:51 O2 Sat by Pulse Oximetry (%) 100 06/03/17 08:48 Renal/: Yes: CVA Tenderness - Right Labs: CBC, BMP 06/03/17 09:38 06/03/17 09:38 Imaging - Results Ultrasound: Report Reviewed Problem List - Problems (1) Pyelonephritis Assessment/Plan: abx as per ID, CT to r/o obstructing nephrolithiasis Code(s): N12 - TUBULO-INTERSTITIAL NEPHRITIS, NOT SPCF ACUTE OR CHRONIC
[2017-06-03] MEDS: ARIPiprazole 5 MG TABLET (FP) PO SCH (21:53)
[2017-06-03] MEDS: ALPRAZolam 0.25 MG TABLET PO SCH (21:53)
[2017-06-03] MEDS: ATORVASTATIN CA 20 MG TABLET (FP) PO SCH ×2 (21:53→21:57)
[2017-06-03] MEDS: HEPARIN NA (PORCINE) 5,000 UNITS/ML 1ML VIAL SQ SCH ×2 (21:53→21:58)
[2017-06-03] MEDS ORDERED: ZOLPIDEM TARTRATE 5 MG TABLET PO PRN (22:00)
--- NOTE | 2017-06-03 23:42 | EKG ---
Test Reason : Blood Pressure : / mmHG Vent. Rate : 069 BPM Atrial Rate : 069 BPM P-R Int : 170 ms QRS Dur : 088 ms QT Int : 434 ms P-R-T Axes : 039 034 039 degrees QTc Int : 465 ms NORMAL SINUS RHYTHM NORMAL ECG WHEN COMPARED WITH ECG OF 19-APR-2016 20:24, VENT. RATE HAS DECREASED BY 34 BPM Confirmed by MANISH JUAREZ MD ([id number]) on 06/03/2017 11:41:47 PM Referred By: BOYD SILVA Confirmed By:MANISH JUAREZ MD
[2017-06-04] MEDS ORDERED: SODIUM CHLORIDE 1,000 ML IV SCH (00:15)
[2017-06-04] MEDS: SODIUM CHLORIDE 1,000 ML IV SCH ×2 (00:52→15:04)
[2017-06-04] MEDS: HEPARIN NA (PORCINE) 5,000 UNITS/ML 1ML VIAL SQ SCH ×3 (06:12→21:29)
[2017-06-04] MEDS: ALPRAZolam 0.25 MG TABLET PO SCH ×3 (06:13→21:31)
[2017-06-04 07:58] LABS: BASO % 0.6 % (0-2.0); EOS % 4.9 % (0-4.5); HEMATOCRIT 35.5 % (32.4-45.2); HEMOGLOBIN 11.9 GM/dL (10.7-15.3); LYMPH % 31.9 % (8-40); MCH 27.4 pg (25.7-33.7); MCHC 33.6 g/dl (32.0-36.0); MEAN CELL VOLUME 81.6 fl (80-96); MEAN PLT VOLUME 8.4 fl (7.5-11.1); MONO % 7.2 % (3.8-10.2); NEUT % 55.4 % (42.8-82.8); PLATELET COUNT 227 K/MM3 (134-434); RBC 4.35 M/mm3 (3.60-5.2); RDW 14.6 % (11.6-15.6); WHITE BLOOD COUNT 4.9 K/mm3 (4.0-10.0)
[2017-06-04 08:21] LABS: INR 1.19 (0.82-1.09); PROTHROMBIN TIME (PATIENT) 13.4 SEC (9.98-11.88)
[2017-06-04 08:24] LABS: ACTIVATED PTT 30.5 SECONDS (26.9-34.4); CHLORIDE 106 mmol/L (98-107); POTASSIUM 4.8 mmol/L (3.5-5.1); SODIUM 140 mmol/L (136-145)
[2017-06-04 08:32] LABS: ALBUMIN 3.3 g/dl (3.4-5.0); ALK PHOS 81 U/L (45-117); ANION GAP 5 (8-16); BILIRUBIN,TOTAL 0.1 mg/dL (0.2-1.0); BLOOD UREA NITROGEN 11 mg/dL (7-18); CALCIUM 8.6 mg/dL (8.5-10.1); CO2 29 mmol/L (21-32); CREATININE 0.7 mg/dL (0.55-1.02); GLUCOSE,RANDOM 103 mg/dL (74-106); MAGNESIUM 2.1 mg/dL (1.8-2.4); PHOSPHOROUS 3.4 mg/dL (2.5-4.9); SGOT/AST 18 U/L (15-37); SGPT/ALT 21 U/L (12-78); TOT PROT 6.6 g/dl (6.4-8.2)
[2017-06-04] MEDS ORDERED: ESCITALOPRAM OXALATE 10 MG TABLET (FP) ONE (09:09)
[2017-06-04] MEDS ORDERED: PT OWN MED DRAWER 7, Y5N ONE (09:10)
[2017-06-04] MEDS: amLODIPine BESYLATE 5 MG TABLET (FP) PO SCH (09:25)
[2017-06-04] MEDS: ESCITALOPRAM OXALATE 20 MG TABLET (FP) PO SCH (09:26)
[2017-06-04] MEDS ORDERED: ERTAPENEM SODIUM 1 GM/50 ML PRE-DOCKED IVPB SCH (10:00)
[2017-06-04] MEDS: ERTAPENEM SODIUM 1 GM in SODIUM CHLORIDE 100 ML IVPB SCH (10:17)
--- NOTE | 2017-06-04 11:22 | PN ---
Physical Exam: SUBJECTIVE: Patient seen and examined at bedside. Pt stable, afebrile, comfortable. Pt is feeling much better, but pain has not resolved altogether. Pt complains of chronic constipation no worse now than usual. Pt had a CT abdomen showing b/l nonobstructive renal stones. OBJECTIVE: Vital Signs Period Temp Pulse Resp BP Sys/Richards Pulse Ox Last 24 Hr 98.2 F-98.5 F 64-72 18-140 117-134/69-76 97 GENERAL: The patient is awake, alert, and fully oriented, in no acute distress. HEAD: Normal with no signs of trauma. EYES: PERRL, extraocular movements intact, sclera anicteric, conjunctiva clear. No ptosis. ENT: Ears normal, nares patent, oropharynx clear without exudates, moist mucous membranes. NECK: Trachea midline, full range of motion, supple. LUNGS: Breath sounds equal, clear to auscultation bilaterally, no wheezes, no crackles, no accessory muscle use. HEART: Regular rate and rhythm, S1, S2 without murmur, rub or gallop. ABDOMEN: moderate R CVA tenderness on fist percussion. Improved since yesterday. Soft, nondistended, normoactive bowel sounds, no guarding, no rebound , no hepatosplenomegaly, no masses. EXTREMITIES: 2+ pulses, warm, well-perfused, no edema. NEUROLOGICAL: Cranial nerves II through XII grossly intact. Normal speech, gait not observed. PSYCH: Normal mood, normal affect. SKIN: Warm, dry, normal turgor, no rashes or lesions noted Laboratory Results - last 24 hr 06/04/17 06/04/17 06/04/17 06:00 06:00 06:00 WBC 4.9 RBC 4.35 Hgb 11.9 D Hct 35.5 D MCV 81.6 MCH 27.4 MCHC 33.6 RDW 14.6 Plt Count 227 MPV 8.4 Neutrophils % 55.4 Lymphocytes % 31.9 Monocytes % 7.2 Eosinophils % 4.9 H Basophils % 0.6 PT with INR 13.40 H INR 1.19 H PTT (Actin FS) 30.5 Sodium 140 Potassium 4.8 Chloride 106 Carbon Dioxide 29 Anion Gap 5 L BUN 11 Creatinine 0.7 Creat Clearance w eGFR > 60 Random Glucose 103 Calcium 8.6 Phosphorus 3.4 Magnesium 2.1 Total Bilirubin 0.1 L D AST 18 ALT 21 Alkaline Phosphatase 81 Total Protein 6.6 Albumin 3.3 L Active Medications Generic Name Dose Route Start Last Admin Trade Name Andrewq PRN Reason Stop Dose Admin Acetaminophen 650 mg 06/03/17 14:12 Tylenol - PO Q6H PRN PAIN LEVEL 1-5 Alprazolam 0.5 mg 06/03/17 22:00 06/04/17 06:13 Xanax - PO 0.5 mg TID LEELA Administration Amlodipine Besylate 5 mg 06/04/17 10:00 06/04/17 09:25 Norvasc - PO 5 mg DAILY LEELA Administration Aripiprazole 5 mg 06/03/17 22:00 06/03/17 21:53 Abilify PO 5 mg HS LEELA Administration Atorvastatin Calcium 20 mg 06/03/17 22:00 06/03/17 21:57 Lipitor - PO Not Given HS LEELA Escitalopram Oxalate 20 mg 06/04/17 10:00 06/04/17 09:26 Lexapro - PO 20 mg DAILY LELEA Administration Heparin Sodium (Porcine) 5,000 unit 06/03/17 22:00 06/04/17 06:12 Heparin - SQ Not Given TID LEELA Ertapenem 1 gm/ Sodium 100 mls @ 200 mls/hr 06/04/17 10:00 06/04/17 10:17 Chloride IVPB 200 mls/hr DAILY LEELA Administration Sodium Chloride 1,000 mls @ 75 mls/hr 06/04/17 00:30 06/04/17 00:52 Normal Saline - IV 75 mls/hr ASDIR LEELA Administration Ketorolac Tromethamine 10 mg 06/03/17 16:59 06/04/17 10:16 Toradol PO 06/08/17 14:14 10 mg Q6H PRN Administration PAIN LEVEL 6-10 Ondansetron HCl 4 mg 06/03/17 14:10 Zofran Injection IVPUSH Q6H PRN NAUSEA Zolpidem Tartrate 5 mg 06/03/17 22:00 Ambien - PO HS PRN INSOMNIA ASSESSMENT/PLAN: #UTI vs Pyelo -improving on Ertapenem -Prelim Cx pos for gram neg lactose fermenting bacilli -pain control with Toradol -contact isolation -Recommend post-void bladder scan as pt has had difficulty voiding Visit type - Emergency Visit Emergency Visit: No - New Patient This patient is new to me today: Yes Date on this admission: 06/04/17 - Critical Care Critical Care patient: No
--- NOTE | 2017-06-04 12:55 | PN ---
Physical Exam: SUBJECTIVE: Patient seen and examined at bedside. Patient states that pain is better today. No new complaints. OBJECTIVE: Vital Signs Period Temp Pulse Resp BP Sys/Richards Pulse Ox Last 24 Hr 98.2 F-98.5 F 64-72 18-140 117-134/69-76 97 GENERAL: The patient is awake, alert, and fully oriented, in no acute distress. NECK: Trachea midline, full range of motion, supple. LUNGS: Breath sounds equal, clear to auscultation bilaterally, no wheezes, no crackles, no accessory muscle use. HEART: Regular rate and rhythm, S1, S2 without murmur, rub or gallop. ABDOMEN: Soft, nontender, nondistended, normoactive bowel sounds, no guarding, no rebound, no hepatosplenomegaly, no masses. Mild tenderness to palpation in the right CVA EXTREMITIES: 2+ pulses, warm, well-perfused, no edema. NEUROLOGICAL: Cranial nerves II through X grossly intact. Normal speech, gait not observed. PSYCH: Normal mood, normal affect. SKIN: Warm, dry, normal turgor, no rashes or lesions noted Laboratory Results - last 24 hr 06/04/17 06/04/17 06/04/17 06:00 06:00 06:00 WBC 4.9 RBC 4.35 Hgb 11.9 D Hct 35.5 D MCV 81.6 MCH 27.4 MCHC 33.6 RDW 14.6 Plt Count 227 MPV 8.4 Neutrophils % 55.4 Lymphocytes % 31.9 Monocytes % 7.2 Eosinophils % 4.9 H Basophils % 0.6 PT with INR 13.40 H INR 1.19 H PTT (Actin FS) 30.5 Sodium 140 Potassium 4.8 Chloride 106 Carbon Dioxide 29 Anion Gap 5 L BUN 11 Creatinine 0.7 Creat Clearance w eGFR > 60 Random Glucose 103 Calcium 8.6 Phosphorus 3.4 Magnesium 2.1 Total Bilirubin 0.1 L D AST 18 ALT 21 Alkaline Phosphatase 81 Total Protein 6.6 Albumin 3.3 L Active Medications Generic Name Dose Route Start Last Admin Trade Name Freq PRN Reason Stop Dose Admin Acetaminophen 650 mg 06/03/17 14:12 Tylenol - PO Q6H PRN PAIN LEVEL 1-5 Alprazolam 0.5 mg 06/03/17 22:00 06/04/17 06:13 Xanax - PO 0.5 mg TID LEELA Administration Amlodipine Besylate 5 mg 06/04/17 10:00 06/04/17 09:25 Norvasc - PO 5 mg DAILY LEELA Administration Aripiprazole 5 mg 06/03/17 22:00 06/03/17 21:53 Abilify PO 5 mg HS LEELA Administration Atorvastatin Calcium 20 mg 06/03/17 22:00 06/03/17 21:57 Lipitor - PO Not Given HS LEELA Escitalopram Oxalate 20 mg 06/04/17 10:00 06/04/17 09:26 Lexapro - PO 20 mg DAILY LEELA Administration Heparin Sodium (Porcine) 5,000 unit 06/03/17 22:00 06/04/17 06:12 Heparin - SQ Not Given TID LEELA Ertapenem 1 gm/ Sodium 100 mls @ 200 mls/hr 06/04/17 10:00 06/04/17 10:17 Chloride IVPB 200 mls/hr DAILY LEELA Administration Sodium Chloride 1,000 mls @ 75 mls/hr 06/04/17 00:30 06/04/17 00:52 Normal Saline - IV 75 mls/hr ASDIR LEELA Administration Ketorolac Tromethamine 10 mg 06/03/17 16:59 06/04/17 10:16 Toradol PO 06/08/17 14:14 10 mg Q6H PRN Administration PAIN LEVEL 6-10 Ondansetron HCl 4 mg 06/03/17 14:10 Zofran Injection IVPUSH Q6H PRN NAUSEA Zolpidem Tartrate 5 mg 06/03/17 22:00 Ambien - PO HS PRN INSOMNIA ASSESSMENT/PLAN: The patient is a 61 yo f w/ PMH hyperparathyroidism s/p resection, recurrent kidney stones and pyelonephritis who is being admitted for the clinical signs and symptoms of pyelonephritis. #Right flank pain and dysuria 2/2 pyelonephritis. -Positive UA -Ucx pending -ID consulted -c/w ertapenem -Tylenol and oxycodone for pain control -CT AP shows 2mm non-obstructing stones b/l -zofran PRN -NS @ 75 -s/p 1L NS in ED -isolation precautions due to hx ESBL #HTN -C/w home Norvasc 5mg #asthma -PRN nebs #HLD -c/w lipitor 20mg HS #Anxiety -c/w home Abilify 5mg HS -c/w home xanax .5mg TID -c/w home ambien 10mg HS #Depression -c/w lexapro 20mg daily #FEN -NS @ 100 for 1 bag, then @75 -monitor lytes -sodium controlled diet #Prophy -Hep SQ 5kU TID #Dispo -admit to med surg Visit type - Emergency Visit Emergency Visit: Yes ED Registration Date: 06/03/17 Care time: The patient presented to the Emergency Department on the above date and was hospitalized for further evaluation of their emergent condition. - New Patient This patient is new to me today: No - Critical Care Critical Care patient: No
--- NOTE | 2017-06-04 13:16 | PN ---
Teaching Attending Note Name of Resident: Dante Crump ATTENDING PHYSICIAN STATEMENT I saw and evaluated the patient. I reviewed the resident's note and discussed the case with the resident. I agree with the resident's findings and plan as documented. SUBJECTIVE: C/O R flank pain, urinary frequency No fever/ chills Urine c/s GNR OBJECTIVE: Afebrile + R CVAT ASSESSMENT AND PLAN: Renal colic Nephrolithiasis Recurrent UTI ? ESBL Continue ertapenem Await c/s result
[2017-06-04] MEDS: oxyCODONE HCL 5 MG TABLET PO PRN (15:01)
--- NOTE | 2017-06-04 17:15 | PN ---
Teaching Attending Note Name of Resident: Jesus Loyola ATTENDING PHYSICIAN STATEMENT I saw and evaluated the patient. I reviewed the resident's note and discussed the case with the resident. I agree with the resident's findings and plan as documented. SUBJECTIVE: Patient feels better. OBJECTIVE: Vital Signs Period Temp Pulse Resp BP Sys/Richards Pulse Ox Last 24 Hr 98.2 F-98.6 F 64-67 18-19 107-122/60-75 97 HEART: S1S2, RRR LUNGS: Clear ABDOMEN: Soft, non-tender, non-distended, normal BS, no CVA tenderness EXTREMITIES: No edema Laboratory Results - last 24 hr 06/04/17 06/04/17 06/04/17 06:00 06:00 06:00 WBC 4.9 RBC 4.35 Hgb 11.9 D Hct 35.5 D MCV 81.6 MCH 27.4 MCHC 33.6 RDW 14.6 Plt Count 227 MPV 8.4 Neutrophils % 55.4 Lymphocytes % 31.9 Monocytes % 7.2 Eosinophils % 4.9 H Basophils % 0.6 PT with INR 13.40 H INR 1.19 H PTT (Actin FS) 30.5 Sodium 140 Potassium 4.8 Chloride 106 Carbon Dioxide 29 Anion Gap 5 L BUN 11 Creatinine 0.7 Creat Clearance w eGFR > 60 Random Glucose 103 Calcium 8.6 Phosphorus 3.4 Magnesium 2.1 Total Bilirubin 0.1 L D AST 18 ALT 21 Alkaline Phosphatase 81 Total Protein 6.6 Albumin 3.3 L Current Medications Generic Name Dose Route Start Last Admin Trade Name Freq PRN Reason Stop Dose Admin Acetaminophen 650 mg 06/03/17 14:12 Tylenol - PO Q6H PRN PAIN LEVEL 1-5 Alprazolam 0.5 mg 06/03/17 22:00 06/04/17 13:39 Xanax - PO 0.5 mg TID LEELA Administration Amlodipine Besylate 5 mg 06/04/17 10:00 06/04/17 09:25 Norvasc - PO 5 mg DAILY LEELA Administration Aripiprazole 5 mg 06/03/17 22:00 06/03/17 21:53 Abilify PO 5 mg HS LEELA Administration Atorvastatin Calcium 20 mg 06/03/17 22:00 06/03/17 21:57 Lipitor - PO Not Given HS LEELA Docusate Sodium 100 mg 06/05/17 10:00 Colace - PO DAILY LEELA Escitalopram Oxalate 20 mg 06/04/17 10:00 06/04/17 09:26 Lexapro - PO 20 mg DAILY LEELA Administration Heparin Sodium (Porcine) 5,000 unit 06/03/17 22:00 06/04/17 13:40 Heparin - SQ Not Given TID LEELA Ertapenem 1 gm/ Sodium 100 mls @ 200 mls/hr 06/04/17 10:00 06/04/17 10:17 Chloride IVPB 200 mls/hr DAILY LEELA Administration Sodium Chloride 1,000 mls @ 75 mls/hr 06/04/17 00:30 06/04/17 15:04 Normal Saline - IV 75 mls/hr ASDIR LEELA Administration Ondansetron HCl 4 mg 06/03/17 14:10 Zofran Injection IVPUSH Q6H PRN NAUSEA Oxycodone HCl 10 mg 06/04/17 13:55 06/04/17 15:01 Roxicodone - PO 10 mg Q6H PRN Administration PAIN LEVEL 6-10 Zolpidem Tartrate 5 mg 06/03/17 22:00 Ambien - PO HS PRN INSOMNIA ASSESSMENT AND PLAN: This is a 61 year old woman with a history of HTN, hyperlipidemia, kidney stones , pyelonephritis, ESBL E. coli UTI, depression, anxiety who presented to the ED with right flank pain, dysuria, urinary frequency, nausea,and chills. 1. UTI, possible acute pyelonephritis. - Continue Invanz (day 2) - Urine culture pending - CT shows bilateral nonobstructing renal stones, diverticulosis, small bilateral adrenal adenomas, moderate fecal retention 2. HTN - Continue Norvasc 3. Hyperlipidemia - Continue Lipitor 4. Depression/anxiety - Continue Lexapro, Abilify, Xanax
[2017-06-04] MEDS: ATORVASTATIN CA 20 MG TABLET (FP) PO SCH (21:29)
[2017-06-04] MEDS: ARIPiprazole 5 MG TABLET (FP) PO SCH (21:31)
[2017-06-05] MEDS: SODIUM CHLORIDE 1,000 ML IV SCH ×3 (04:10→17:00)
[2017-06-05] MEDS: HEPARIN NA (PORCINE) 5,000 UNITS/ML 1ML VIAL SQ SCH ×2 (06:09→14:04)
[2017-06-05] MEDS: ALPRAZolam 0.25 MG TABLET PO SCH ×2 (06:10→14:04)
[2017-06-05] MEDS: oxyCODONE HCL 5 MG TABLET PO PRN (06:13)
[2017-06-05 08:58] LABS: HEMOGLOBIN 11.5 GM/dL (10.7-15.3); MEAN CELL VOLUME 81.9 fl (80-96); MEAN PLT VOLUME 8.7 fl (7.5-11.1); PLATELET COUNT 222 K/MM3 (134-434); RBC 4.28 M/mm3 (3.60-5.2); RDW 14.5 % (11.6-15.6)
[2017-06-05 09:22] LABS: ANION GAP 5 (8-16); BLOOD UREA NITROGEN 8 mg/dL (7-18); CALCIUM 8.4 mg/dL (8.5-10.1); CHLORIDE 110 mmol/L (98-107); CO2 28 mmol/L (21-32); CREATININE 0.6 mg/dL (0.55-1.02); GLUCOSE,RANDOM 92 mg/dL (74-106); POTASSIUM 4.6 mmol/L (3.5-5.1); SODIUM 143 mmol/L (136-145)
--- NOTE | 2017-06-05 09:22 | PN ---
Physical Exam: SUBJECTIVE: Patient seen and examined at bedside. No acute events. Pt still having some difficulty passing urine but states this is roughly her baseline. Pain is controlled. No other complaints. Stable, afebrile. OBJECTIVE: Vital Signs Period Temp Pulse Resp BP Sys/Richards Pulse Ox Last 24 Hr 97.8 F-98.6 F 62-67 18-20 107-119/60-75 96-98 GENERAL: The patient is awake, alert, and fully oriented, in no acute distress. HEAD: Normal with no signs of trauma. EYES: PERRL, extraocular movements intact, sclera anicteric, conjunctiva clear. No ptosis. ENT: Ears normal, nares patent, oropharynx clear without exudates, moist mucous membranes. NECK: Trachea midline, full range of motion, supple. LUNGS: Breath sounds equal, clear to auscultation bilaterally, no wheezes, no crackles, no accessory muscle use. HEART: Regular rate and rhythm, S1, S2 without murmur, rub or gallop. ABDOMEN: Soft, nontender, nondistended, normoactive bowel sounds, no guarding, no rebound, no hepatosplenomegaly, no masses. EXTREMITIES: 2+ pulses, warm, well-perfused, no edema. NEUROLOGICAL: Cranial nerves II through XII grossly intact. Normal speech, gait not observed. PSYCH: Normal mood, normal affect. SKIN: Warm, dry, normal turgor, no rashes or lesions noted Laboratory Results - last 24 hr 06/05/17 08:00 WBC 4.0 RBC 4.28 Hgb 11.5 Hct 35.0 MCV 81.9 MCH 27.0 MCHC 33.0 RDW 14.5 Plt Count 222 MPV 8.7 Active Medications Generic Name Dose Route Start Last Admin Trade Name Freq PRN Reason Stop Dose Admin Acetaminophen 650 mg 06/03/17 14:12 Tylenol - PO Q6H PRN PAIN LEVEL 1-5 Alprazolam 0.5 mg 06/03/17 22:00 06/05/17 06:10 Xanax - PO 0.5 mg TID LEELA Administration Amlodipine Besylate 5 mg 06/04/17 10:00 06/04/17 09:25 Norvasc - PO 5 mg DAILY LEELA Administration Aripiprazole 5 mg 06/03/17 22:00 04/10/18 21:31 Abilify PO 5 mg HS LEELA Administration Atorvastatin Calcium 20 mg 06/03/17 22:00 06/04/17 21:29 Lipitor - PO Not Given HS LEELA Docusate Sodium 100 mg 06/05/17 10:00 Colace - PO DAILY LEELA Escitalopram Oxalate 20 mg 06/04/17 10:00 06/04/17 09:26 Lexapro - PO 20 mg DAILY LEELA Administration Heparin Sodium (Porcine) 5,000 unit 06/03/17 22:00 06/05/17 06:09 Heparin - SQ Not Given TID LEELA Ertapenem 1 gm/ Sodium 100 mls @ 200 mls/hr 06/04/17 10:00 06/04/17 10:17 Chloride IVPB 200 mls/hr DAILY LEELA Administration Sodium Chloride 1,000 mls @ 75 mls/hr 06/04/17 00:30 06/05/17 06:15 Normal Saline - IV Not Given ASDIR LEELA Ondansetron HCl 4 mg 06/03/17 14:10 Zofran Injection IVPUSH Q6H PRN NAUSEA Oxycodone HCl 10 mg 06/04/17 13:55 06/05/17 06:13 Roxicodone - PO 10 mg Q6H PRN Administration PAIN LEVEL 6-10 Zolpidem Tartrate 5 mg 06/03/17 22:00 Ambien - PO HS PRN INSOMNIA ASSESSMENT/PLAN: #UTI vs Pyelo -continues to improve on Ertapenem -Cx pos for E. coli -CT neg for obstructive stones -Recommend Cephalosporin or Fluoroquinolone. Cefixime (preferred due to borderline QTc) 400mg daily x 10 d Dante Crump MD PGY-1 ID Visit type - Emergency Visit Emergency Visit: No - New Patient This patient is new to me today: No - Critical Care Critical Care patient: No
[2017-06-05] MEDS ORDERED: PT OWN MED DRAWER 7, Y5N ONE (09:37)
[2017-06-05] MEDS ORDERED: ESCITALOPRAM OXALATE 10 MG TABLET (FP) ONE (09:37)
[2017-06-05] MEDS: amLODIPine BESYLATE 5 MG TABLET (FP) PO SCH (09:52)
[2017-06-05] MEDS: ERTAPENEM SODIUM 1 GM in SODIUM CHLORIDE 100 ML IVPB SCH (09:52)
[2017-06-05] MEDS: ESCITALOPRAM OXALATE 20 MG TABLET (FP) PO SCH (09:53)
[2017-06-05] MEDS ORDERED: DOCUSATE SODIUM 100 MG CAPSULE (FP) PO SCH (10:00)
[2017-06-05 10:02] VITALS: BP 123/71; PULSE 66; TEMP 98.1
--- NOTE | 2017-06-05 16:43 | PN ---
Teaching Attending Note Name of Resident: Dante Crump ATTENDING PHYSICIAN STATEMENT I saw and evaluated the patient. I reviewed the resident's note and discussed the case with the resident. I agree with the resident's findings and plan as documented. SUBJECTIVE: feels improved eating, no fevers pain is less OBJECTIVE: Vital Signs Period Temp Pulse Resp BP Sys/Richards Pulse Ox Last 24 Hr 97.8 F-98.4 F 62-67 17-20 108-123/67-71 96-98 cor-rrr lungs clear abd soft, minimal right cvat ext no edema CBC, BMP 06/05/17 08:00 06/05/17 08:00 Microbiology 06/03/17 10:15 Urine - Urine Clean Catch Urine Culture - Final Escherichia Coli ASSESSMENT AND PLAN: ecoli uti pyelonephritis day #3 ertapenem can switch to po cephalosporin as outlined in Dr Crump's note please call back if needed
--- NOTE | 2017-06-05 17:58 | PN ---
Teaching Attending Note Name of Resident: Jesus Loyola ATTENDING PHYSICIAN STATEMENT I saw and evaluated the patient. I reviewed the resident's note and discussed the case with the resident. I agree with the resident's findings and plan as documented. SUBJECTIVE: Pateint is feeling better with no fever or chills. OBJECTIVE: Vital Signs Temperature 98.1 F 06/05/17 09:50 Pulse Rate 66 06/05/17 09:50 Respiratory Rate 17 06/05/17 09:50 Blood Pressure 123/71 06/05/17 09:50 O2 Sat by Pulse Oximetry (%) 98 06/05/17 09:50 CBCD WBC 4.0 K/mm3 (4.0-10.0) 06/05/17 08:00 RBC 4.28 M/mm3 (3.60-5.2) 06/05/17 08:00 Hgb 11.5 GM/dL (10.7-15.3) 06/05/17 08:00 Hct 35.0 % (32.4-45.2) 06/05/17 08:00 MCV 81.9 fl (80-96) 06/05/17 08:00 MCHC 33.0 g/dl (32.0-36.0) 06/05/17 08:00 RDW 14.5 % (11.6-15.6) 06/05/17 08:00 Plt Count 222 K/MM3 (134-434) 06/05/17 08:00 MPV 8.7 fl (7.5-11.1) 06/05/17 08:00 CMP Sodium 143 mmol/L (136-145) 06/05/17 08:00 Potassium 4.6 mmol/L (3.5-5.1) 06/05/17 08:00 Chloride 110 mmol/L (98-107) H 06/05/17 08:00 Carbon Dioxide 28 mmol/L (21-32) 06/05/17 08:00 Anion Gap 5 (8-16) L 06/05/17 08:00 BUN 8 mg/dL (7-18) 06/05/17 08:00 Creatinine 0.6 mg/dL (0.55-1.02) 06/05/17 08:00 Creat Clearance w eGFR > 60 (>60) 06/04/17 06:00 Random Glucose 92 mg/dL (74-106) 06/05/17 08:00 Calcium 8.4 mg/dL (8.5-10.1) L 06/05/17 08:00 Total Bilirubin 0.1 mg/dL (0.2-1.0) L D 06/04/17 06:00 AST 18 U/L (15-37) 06/04/17 06:00 ALT 21 U/L (12-78) 06/04/17 06:00 Alkaline Phosphatase 81 U/L (45-117) 06/04/17 06:00 Total Protein 6.6 g/dl (6.4-8.2) 06/04/17 06:00 Albumin 3.3 g/dl (3.4-5.0) L 06/04/17 06:00 Current Medications Generic Name Dose Route Start Last Admin Trade Name Freq PRN Reason Stop Dose Admin Acetaminophen 650 mg 06/03/17 14:12 Tylenol - PO Q6H PRN PAIN LEVEL 1-5 Alprazolam 0.5 mg 06/03/17 22:00 06/05/17 14:04 Xanax - PO 0.5 mg TID LEELA Administration Amlodipine Besylate 5 mg 06/04/17 10:00 06/05/17 09:52 Norvasc - PO 5 mg DAILY LEELA Administration Aripiprazole 5 mg 06/03/17 22:00 06/04/17 21:31 Abilify PO 5 mg HS LEELA Administration Atorvastatin Calcium 20 mg 06/03/17 22:00 06/04/17 21:29 Lipitor - PO Not Given HS LEELA Docusate Sodium 100 mg 06/05/17 10:00 06/05/17 09:53 Colace - PO 100 mg DAILY LEELA Administration Escitalopram Oxalate 20 mg 06/04/17 10:00 06/05/17 09:53 Lexapro - PO 20 mg DAILY LEELA Administration Heparin Sodium (Porcine) 5,000 unit 06/03/17 22:00 06/05/17 14:04 Heparin - SQ Not Given TID LEELA Ertapenem 1 gm/ Sodium 100 mls @ 200 mls/hr 06/04/17 10:00 06/05/17 09:52 Chloride IVPB 200 mls/hr DAILY LEELA Administration Sodium Chloride 1,000 mls @ 75 mls/hr 06/04/17 00:30 06/05/17 06:15 Normal Saline - IV Not Given ASDIR LEELA Ondansetron HCl 4 mg 06/03/17 14:10 Zofran Injection IVPUSH Q6H PRN NAUSEA Oxycodone HCl 10 mg 06/04/17 13:55 06/05/17 06:13 Roxicodone - PO 10 mg Q6H PRN Administration PAIN LEVEL 6-10 Zolpidem Tartrate 5 mg 06/03/17 22:00 Ambien - PO HS PRN INSOMNIA Home Medications Medication Instructions Recorded Alprazolam [Xanax] 0.5 mg PO TID 06/03/17 Amlodipine Besylate [Norvasc -] 5 mg PO DAILY 06/03/17 Aripiprazole [Abilify] 5 mg PO HS 06/03/17 Atorvastatin Calcium [Lipitor] 20 mg PO HS 06/03/17 Escitalopram Oxalate [Lexapro -] 20 mg PO DAILY 06/03/17 Zolpidem Tartrate 10 mg PO HS 06/03/17 Acetaminophen [Tylenol .Regular 650 mg PO Q6H PRN tablet 06/05/17 Strength -] Cefixime [Suprax -] 400 mg PO DAILY #10 capsule 06/05/17 Docusate Sodium [Colace -] 100 mg PO DAILY capsule 06/05/17 Oxycodone HCl 5 mg PO Q12H #4 capsule MDD 2 06/05/17 Microbiology 06/03/17 10:15 Urine - Urine Clean Catch Urine Culture - Final Escherichia Coli PE;per resident's note No Cva tenderness. ASSESSMENT AND PLAN: This is a 61 year old woman with a history of HTN, hyperlipidemia, kidney stones , pyelonephritis, ESBL E. coli UTI, depression, anxiety who presented to the ED with right flank pain, dysuria, urinary frequency, nausea,and chills. # Acute Pyelonephritis; UTI on Ertapenem x 3 days as per ID patient can be switched to oral Antibiotics , given 2 days of pain meds as needed. Follow with Urologist in a week period. CT shows bilateral nonobstructing renal stones, diverticulosis, small bilateral adrenal adenomas, moderate fecal retention # HTN Continue Norvasc # Hyperlipidemia continue Lipitor # Depression/anxiety continue Lexapro, Abilify, Xanax will discharge patient home.
--- NOTE | 2017-06-05 21:02 | DS ---
Physical Exam: SUBJECTIVE: Patient seen and examined at bedside. Patient feels better today. OBJECTIVE: Vital Signs Period Temp Pulse Resp BP Sys/[place]ards Pulse Ox Last 24 Hr 98.1 F-98.4 F 66-67 17-20 108-123/67-71 98 PHYSICAL EXAM GENERAL: The patient is awake, alert, and fully oriented, in no acute distress. NECK: Trachea midline, full range of motion, supple. LUNGS: Breath sounds equal, clear to auscultation bilaterally, no wheezes, no crackles, no accessory muscle use. HEART: Regular rate and rhythm, S1, S2 without murmur, rub or gallop. ABDOMEN: Soft, nontender, nondistended, normoactive bowel sounds, no guarding, no rebound, no hepatosplenomegaly, no masses. Mild tenderness to palpation in the right CVA EXTREMITIES: 2+ pulses, warm, well-perfused, no edema. NEUROLOGICAL: Cranial nerves II through X grossly intact. Normal speech, gait not observed. PSYCH: Normal mood, normal affect. SKIN: Warm, dry, normal turgor, no rashes or lesions noted LABS Laboratory Results - last 24 hr 06/05/17 06/05/17 08:00 08:00 WBC 4.0 RBC 4.28 Hgb 11.5 Hct 35.0 MCV 81.9 MCH 27.0 MCHC 33.0 RDW 14.5 Plt Count 222 MPV 8.7 Sodium 143 Potassium 4.6 Chloride 110 H Carbon Dioxide 28 Anion Gap 5 L BUN 8 Creatinine 0.6 Random Glucose 92 Calcium 8.4 L HOSPITAL COURSE: Date of Admission:06/03/17 The patient is a 61 yo f w/ PMH hyperparathryoid s/p resection, recurrent kidney stones and pyelonephritis (grew ESBL in the past) who comes to the ED c/ o right sided flank pain. The patient described a 3 week hx of burning on urination as well as frequency and incomplete voiding associated with a sharp, 10/10 intermittent right sided flank pain which did not radiate. In the ED, the patient was found to have a UA indicative of a UTI. Given the patient's hx ESBL , she was admitted for IV ABX. ID was consulted. Urology was consulted. A CT showed b/l non-obstructing 2mm kidney stones. The patient was treated with tylenol, toradol, oxycodone, ertapenem. The patient improved with the above treatment. A urine culture taken prior to abx grew pansensitive E. coli. The patient was discharged on cefixime 400mg daily for 10 days as well as 5mg oxycodone Q8h for 3 days. She was instructed to follow up with her PCP as well as a urologist. Date of Discharge: 06/05/17 Minutes to complete discharge: 40 Discharge Summary Reason For Visit: UTI, PYELONEPHRITIS Condition: Improved - Instructions Diet, Activity, Other Instructions: You were admitted for the treatment of your urinary infection with IV antibiotics for 3 days. You will need to complete an additional 10 days at home. We are sending you home on an antibiotic to help fight this infection. You should take 400mg of Cefixime once per day for an additional 10 days. Please take all of your antibiotics as prescribed for the full time paramedic it is prescribed, even if you feel better. You should follow up with your primary care physician within 1 week of discharge home. You should follow up with your urologist within one week of discharge home. Information for Dr. Jamison, who saw you during your admission, has been included in your discharge paperwork. Please call to make an appointment. If you begin to experience chest pain, shortness of breath, fevers, chills, burning on urination, worsening back pain, trouble urinating or if any of your symptoms get worse, please call your doctor or return to the emergency department. Referrals: Hollis Barron MD [Staff Physician] - Gregory Mckeon MD [Staff Physician] - Disposition: HOME - Home Medications Comprehensive Discharge Medication List: Ambulatory Orders Alprazolam [Xanax] 0.5 mg PO TID 06/03/17 Amlodipine Besylate [Norvasc -] 5 mg PO DAILY 06/03/17 Aripiprazole [Abilify] 5 mg PO HS 06/03/17 Atorvastatin Calcium [Lipitor] 20 mg PO HS 06/03/17 Escitalopram Oxalate [Lexapro -] 20 mg PO DAILY 06/03/17 Zolpidem Tartrate 10 mg PO HS 06/03/17 Acetaminophen [Tylenol .Regular Strength -] 650 mg PO Q6H PRN tablet 06/05/17 Cefixime [Suprax -] 400 mg PO DAILY #10 capsule 06/05/17 Docusate Sodium [Colace -] 100 mg PO DAILY capsule 06/05/17 Oxycodone HCl 5 mg PO Q12H PRN #4 capsule MDD 2 06/05/17 This patient is new to me today: No Emergency Visit: Yes ED Registration Date: 06/03/17 Care time: The patient presented to the Emergency Department on the above date and was hospitalized for further evaluation of their emergent condition. Critical Care patient: No - Discharge Referral Referred to [facility] Med P.C.: No
== END 2017-06-05 18:21 | disposition home or self-care (01) | DRG 463 ==
LOC: JER 08:47 → OBSVTOIN 13:37 → JERBED 13:37 → J6S 15:37
PROVIDERS: ADMIT Internal Medicine; ATTEND Internal Medicine
DX: N10 Acute pyelonephritis (principal); N39.0 Urinary tract infection, site not specified; E78.00 Pure hypercholesterolemia, unspecified; J45.909 Unspecified asthma, uncomplicated; I10 Essential (primary) hypertension; E05.90 Thyrotoxicosis, unspecified without thyrotoxic crisis or storm; K59.00 Constipation, unspecified; N20.0 Calculus of kidney; D35.00 Benign neoplasm of unspecified adrenal gland; R11.0 Nausea; F41.8 Other specified anxiety disorders; B96.20 Unspecified Escherichia coli [E. coli] as the cause of diseases classified elsewhere; Z91.09 Other allergy status, other than to drugs and biological substances; Z87.891 Personal history of nicotine dependence
CPT/HCPCS: 36415; 74176-TC; 80048; 80053; 81003; 81015; 83735; 84100; 85025; 85027; 85610; 85730; 87086; 87186; 93005; 93010; 97116-GP; 97161-GP; 99285-25; J1644; J7030

== ENCOUNTER 2017-07-17 08:53 | Day surgery (SDC) | payer OTHER ==
[2017-07-09 10:40] VITALS: BMI 27.3
[2017-07-17] MEDS ORDERED: MIDAZOLAM HCL 2 MG/2 ML SINGLE DOSE VIAL ONE (09:52)
[2017-07-17] MEDS ORDERED: LIDOCAINE HCL 2% (20ML MULTI-DOSE VIAL) NR ONE (10:00)
[2017-07-17] MEDS ORDERED: LIDOCAINE HCL 2% (50ML VIAL) INF ONE (10:25)
[2017-07-17 15:30] VITALS: TEMP 97.6
[2017-07-17 15:33] VITALS: BP 145/78; PULSE 68
--- NOTE | 2017-07-17 19:14 | OP ---
DATE OF OPERATION: 07/17/2017 PREOPERATIVE DIAGNOSIS: Right index trigger finger. POSTOPERATIVE DIAGNOSIS: Right index trigger finger. OPERATIVE PROCEDURE: Right index trigger finger release. ANESTHESIA: Local sedation. COMPLICATIONS: None. ESTIMATED BLOOD LOSS: Minimal. INDICATION FOR PROCEDURE: The patient is a 61-year-old female with the above findings indicated for operative treatment. Risks, benefits, and alternatives were discussed with patient at length, proper informed consent was obtained. PROCEDURE: After proper identification of the patient's correct operative site, patient brought to the operating room, placed supine on the table, all bony prominences well padded. Sedation was given by the anesthesiologist, local anesthesia given 2% lidocaine. Right upper extremity was prepped and draped in the usual sterile fashion. Well padded tourniquet was placed with a sterile prep. Esmarch bandage to exsanguinate the right upper extremity. Tourniquet inflated to 250 mmHg. A longitudinal incision was made over the A1 hazel to the index finger. The incision was made sharp through the skin, with blunt and sharp dissection of subcutaneous tissues. A1 hazel was identified and divided longitudinally. Mild fraying of the superficialis tendon was noted. Patient was asked to flex and extend her finger, and no finger triggering was noted. Wound was irrigated with saline and repaired with a 5-0 nylon suture. A sterile dressing was applied. The patient was brought to the recovery room in stable condition. She tolerated the procedure well. DAYNA HDZ M.D. [id number]
== END 2017-07-17 11:30 | disposition home or self-care (01) ==
LOC: FASU 08:53
PROVIDERS: ATTEND Orthopaedic Surgery Hand Surgery
PROC: 0LN70ZZ Release Right Hand Tendon, Open Approach (ICD-10-PCS; principal; 2017-07-17 10:27)
DX: M65.321 Trigger finger, right index finger (principal)

== ENCOUNTER 2018-02-10 15:25 | Inpatient (IN) | payer OTHER ==
[2018-02-10 15:47] VITALS: BMI 27.1
--- NOTE | 2018-02-10 15:49 | PDOC ---
Rapid Medical Evaluation Chief Complaint: Back Pain Time Seen by Provider: 02/10/18 15:43 Medical Evaluation: Allergies Allergy/AdvReac Type Severity Reaction Status Date / Time peach Allergy Severe THROAT Verified 09/25/17 13:58 CLOSES morphine Allergy Intermediate Itching Verified 09/25/17 13:58 Sulfa (Sulfonamide Allergy Mild Verified 09/25/17 13:58 Antibiotics) APPLES Allergy Severe Uncoded 09/25/17 13:58 CARROTS Allergy Severe Uncoded 09/25/17 13:58 STRAWBERRIES Allergy Severe Uncoded 09/25/17 13:58 02/10/18 15:44 I have performed a brief in-person evaluation of this patient. The patient presents with a chief complaint of:chills fever, Pertinent physical exam findings: pale , + CVA I have ordered the following: CT renal, CbC, CMP, blood culture , IV The patient will proceed to the ED for further evaluation. 02/10/18 15:48 Discharge Disposition - Referrals Referrals: Kristen Price MD [Primary Care Provider] - - Patient Instructions - Post Discharge Activity
[2018-02-10 16:21] LABS: URINE APPEARANCE SLCLOUDY; URINE BILIRUBIN NEGATIVE (<2.0 mg/dL); URINE COLOR YELLOW; URINE GLUCOSE (UA) NEGATIVE (NEGATIVE); URINE KETONE NEGATIVE (NEGATIVE); URINE LEUK ESTERASE 3+ (NEGATIVE); URINE NITRITE NEGATIVE (NEGATIVE); URINE PROTEIN 1+ (NEGATIVE); URINE UROBILINOGEN NEGATIVE mg/dL (0.2-1.0)
[2018-02-10 16:44] LABS: BASO % 0.3 % (0-2.0); EOS % 0.2 % (0-4.5); HEMATOCRIT 35.7 % (32.4-45.2); HEMOGLOBIN 12.2 GM/dL (10.7-15.3); LYMPH % 8.9 % (8-40); MCH 26.8 pg (25.7-33.7); MCHC 34.1 g/dl (32.0-36.0); MEAN CELL VOLUME 78.6 fl (80-96); MEAN PLT VOLUME 8.6 fl (7.5-11.1); MONO % 10.1 % (3.8-10.2); NEUT % 80.5 % (42.8-82.8); PLATELET COUNT 267 K/MM3 (134-434); RBC 4.55 M/mm3 (3.60-5.2); RDW 14.2 % (11.6-15.6); WHITE BLOOD COUNT 10.3 K/mm3 (4.0-10.0)
[2018-02-10 17:04] LABS: EPI CELLS RARE /HPF (FEW); URINE BACTERIA RARE /hpf (NONE SEEN); URINE MUCUS RARE
[2018-02-10 17:30] LABS: BILIRUBIN,TOTAL 0.6 mg/dL (0.2-1); CALCIUM 8.5 mg/dL (8.5-10.1); CO2 26 mmol/L (21-32)
[2018-02-10 17:31] LABS: ALBUMIN 3.4 g/dl (3.4-5.0); ALK PHOS 96 U/L (45-117); ANION GAP 8 MMOL/L (8-16); BLOOD UREA NITROGEN 11 mg/dL (7-18); CHLORIDE 99 mmol/L (98-107); CREATININE 0.9 mg/dL (0.55-1.3); GLUCOSE,RANDOM 151 mg/dL (74-106); POTASSIUM 4.1 mmol/L (3.5-5.1); SGOT/AST 29 U/L (15-37); SGPT/ALT 30 U/L (13-61); SODIUM 133 mmol/L (136-145); TOT PROT 7.5 g/dl (6.4-8.2)
[2018-02-10] MEDS ORDERED: KETOROLAC TROMETHAMINE 30 MG/1 ML VIAL IVPUSH ONE (17:34)
[2018-02-10] MEDS ORDERED: ACETAMINOPHEN 325 MG TABLET (FP) PO ONE (17:35)
[2018-02-10] MEDS ORDERED: SODIUM CHLORIDE 1,000 ML IV STA (17:35)
[2018-02-10] MEDS ORDERED: CEFTRIAXONE 1 GM in DEXTROSE 5%-WATER - 100 ML IVPB ONE (17:36)
[2018-02-10] MEDS ORDERED: ONDANSETRON 4 MG/2 ML VIAL IVPUSH ONE (17:42)
--- NOTE | 2018-02-10 17:42 | PDOC ---
History of Present Illness - General Chief Complaint: Pain, Acute Stated Complaint: Cold Symptoms Time Seen by Provider: 02/10/18 15:43 History Source: Patient - History of Present Illness Timing/Duration: reports: getting worse Abdominal Pain Onset Location: reports: flank Past History - Past Medical History Allergies/Adverse Reactions: Allergies Allergy/AdvReac Type Severity Reaction Status Date / Time peach Allergy Severe THROAT Verified 09/25/17 13:58 CLOSES morphine Allergy Intermediate Itching Verified 09/25/17 13:58 Sulfa (Sulfonamide Allergy Mild Verified 09/25/17 13:58 Antibiotics) APPLES Allergy Severe Uncoded 09/25/17 13:58 CARROTS Allergy Severe Uncoded 09/25/17 13:58 STRAWBERRIES Allergy Severe Uncoded 09/25/17 13:58 Home Medications: Ambulatory Orders Alprazolam [Xanax] 0.5 mg PO TID 06/03/17 Aripiprazole [Abilify] 5 mg PO HS 06/03/17 Atorvastatin Calcium [Lipitor] 20 mg PO HS 06/03/17 Escitalopram Oxalate [Lexapro -] 20 mg PO DAILY 06/03/17 Ciprofloxacin [Cipro -] 500 mg PO Q12H #14 tablet 02/10/18 Ibuprofen [Motrin -] 800 mg PO Q6H #30 tablet 02/10/18 Anemia: No Asthma: Yes Cancer: No Cardiac Disorders: No CVA: No COPD: No CHF: No DVT: No Dementia: No Diabetes: No GI Disorders: Yes (gastritis) Disorders: Yes (kidney stones X5 , UTI PRESENT) HTN: Yes Hypercholesterolemia: Yes Kidney Stones: Yes Liver Disease: No Seizures: No Thyroid Disease: Yes - Surgical History Abdominal Surgery: Yes (HERNIA) Appendectomy: Yes Cardiac Surgery: No Cholecystectomy: Yes Lung Surgery: No Neurologic Surgery: No Orthopedic Surgery: Yes (CTR RIGHT AND LEFT HAND, LEFT TRIGGER FINGER RELEASE) - Reproductive History Is Patient Now?: No Cervical CA: No Dysfunctional Uterine Bleeding: No Ectopic : No Endometrial CA: No Polycystic Ovaries: No Tubal Ligation: No - Immunization History Immunization Up to Date: No - Suicide/Smoking/Psychosocial Hx Smoking History: Never smoked Have you smoked in the past 12 months: No Number of Cigarettes Smoked Daily: 0 If you are a former smoker, when did you quit?: 1995 Information on smoking cessation initiated: No Hx Alcohol Use: No Drug/Substance Use Hx: No Substance Use Type: None Hx Substance Use Treatment: No Review of Systems - Review of Systems Constitutional: Yes: Chills, Fever : Yes: Flank Pain. No: Burning, Dysuria, Discharge, Frequency, Hematuria *Physical Exam - Vital Signs Last Vital Signs Temp Pulse Resp BP Pulse Ox 102.5 F H 107 H 18 130/67 100 02/10/18 15:44 02/10/18 15:44 02/10/18 15:44 02/10/18 15:44 02/10/18 15:44 - Physical Exam General Appearance: Yes: Appropriately Dressed HEENT: positive: Normal Voice Neck: positive: Supple Gastrointestinal/Abdominal: positive: Soft. negative: Tender Musculoskeletal: negative: CVA Tenderness, CVA Tenderness (R) Integumentary: positive: Dry, Warm Neurologic: positive: Fully Oriented, Alert, Normal Mood/Affect Moderate Sedation - Procedure Monitoring Vital Signs: Procedure Monitoring Vital Signs Temperature 102.5 F H 02/10/18 15:44 Pulse Rate 107 H 02/10/18 15:44 Respiratory Rate 18 02/10/18 15:44 Blood Pressure 130/67 02/10/18 15:44 O2 Sat by Pulse Oximetry (%) 100 02/10/18 15:44 ED Treatment Course - LABORATORY CBC & Chemistry Diagram: 02/10/18 16:35 02/10/18 16:35 - ADDITIONAL ORDERS Additional order review: Laboratory Results 02/10/18 02/10/18 16:35 16:00 Sodium 133 L Potassium 4.1 Chloride 99 Carbon Dioxide 26 Anion Gap 8 BUN 11 Creatinine 0.9 Creat Clearance w eGFR > 60 Random Glucose 151 H Calcium 8.5 Total Bilirubin 0.6 AST 29 ALT 30 Alkaline Phosphatase 96 Total Protein 7.5 Albumin 3.4 Urine Color Yellow Urine Appearance Slcloudy Urine pH 5.0 Ur Specific [place] 1.012 Urine Protein 1+ H Urine Glucose (UA) Negative Urine Ketones Negative Urine Blood Negative Urine Nitrite Negative Urine Bilirubin Negative Urine Urobilinogen Negative Ur Leukocyte Esterase 3+ H Urine WBC (Auto) 337 Urine RBC (Auto) 2 Ur Epithelial Cells Rare Urine Bacteria Rare Urine Mucus Rare 02/10/18 16:35 RBC 4.55 MCV 78.6 L MCHC 34.1 RDW 14.2 MPV 8.6 Neutrophils % 80.5 D Lymphocytes % 8.9 D Monocytes % 10.1 Eosinophils % 0.2 D Basophils % 0.3 Medical Decision Making - Medical Decision Making 02/10/18 17:40 62 yo F, h/o renal stone, utis, here w/ severe R flank pain w/ nausea, fever and chills x 3 days. No dysuria or hematuria See exam Suspect pyelo -rocephin -pain control -zofran -antipyretic -labs -CT r/o stone 02/10/18 18:12 WBC 10 w. LE and >[address] read as b/l non-obs renal stone, no ureteral stone and no hydro. Meds in progress. Anticipate dc w/ abx (of note warren -sen ecoli on prior ucxs) 02/10/18 19:02 Rpt vitals improved. Pt reports persistent pain. Will continue to manage pain in ED. Pt states itching w/ morphine but has taken percocet in past w/ no adverse rxn 02/10/18 19:03 At this time, signed out to 7pm midlevel pending re-assessment *DC/Admit/Observation/Transfer Diagnosis at time of Disposition: Pyelonephritis - Discharge Dispostion Condition at time of disposition: Improved - Prescriptions Prescriptions: Ciprofloxacin [Cipro -] 500 mg PO Q12H #14 tablet Ibuprofen [Motrin -] 800 mg PO Q6H #30 tablet - Referrals Referrals: Kristen Price MD [Primary Care Provider] - - Patient Instructions Additional Instructions: You were treated for a kidney infection Take medications as directed If symptoms persist or worsen, return to ED Otherwise, follow with your PMD - Post Discharge Activity
[2018-02-10] MEDS ORDERED: KETOROLAC TROMETHAMINE 30 MG/1 ML VIAL ONE (17:49)
[2018-02-10] MEDS ORDERED: CEFTRIAXONE 1 GM/50 ML BAG ONE (17:49)
[2018-02-10] MEDS ORDERED: ACETAMINOPHEN 325 MG TABLET (FP) ONE (17:49)
[2018-02-10] MEDS ORDERED: ONDANSETRON 4 MG/2 ML VIAL ONE (17:57)
--- NOTE | 2018-02-10 19:55 | PDOC ---
*Physical Exam - Vital Signs Last Vital Signs Temp Pulse Resp BP Pulse Ox 100.5 F H 79 17 101/55 L 98 02/10/18 19:09 02/10/18 19:09 02/10/18 19:09 02/10/18 19:09 02/10/18 19:09 - Physical Exam General Appearance: Yes: Appropriately Dressed Cardiovascular: positive: Tachycardia Gastrointestinal/Abdominal: positive: Normal Bowel Sounds, Soft Musculoskeletal: positive: CVA Tenderness, CVA Tenderness (R) Integumentary: positive: Diaphoresis, Moist Neurologic: positive: Fully Oriented, Alert, Normal Mood/Affect ED Treatment Course - LABORATORY CBC & Chemistry Diagram: 02/11/18 08:50 02/11/18 08:50 - ADDITIONAL ORDERS Additional order review: Laboratory Results 02/10/18 02/10/18 16:35 16:00 Sodium 133 L Potassium 4.1 Chloride 99 Carbon Dioxide 26 Anion Gap 8 BUN 11 Creatinine 0.9 Creat Clearance w eGFR > 60 Random Glucose 151 H Calcium 8.5 Total Bilirubin 0.6 AST 29 ALT 30 Alkaline Phosphatase 96 Total Protein 7.5 Albumin 3.4 Urine Color Yellow Urine Appearance Slcloudy Urine pH 5.0 Ur Specific [place] 1.012 Urine Protein 1+ H Urine Glucose (UA) Negative Urine Ketones Negative Urine Blood Negative Urine Nitrite Negative Urine Bilirubin Negative Urine Urobilinogen Negative Ur Leukocyte Esterase 3+ H Urine WBC (Auto) 337 Urine RBC (Auto) 2 Ur Epithelial Cells Rare Urine Bacteria Rare Urine Mucus Rare 02/10/18 16:35 RBC 4.55 MCV 78.6 L MCHC 34.1 RDW 14.2 MPV 8.6 Neutrophils % 80.5 D Lymphocytes % 8.9 D Monocytes % 10.1 Eosinophils % 0.2 D Basophils % 0.3 - Medications Given in the ED: ED Medications Discontinued Medications Generic Name Dose Route Start Last Admin Trade Name Freq PRN Reason Stop Dose Admin Acetaminophen 650 mg 02/10/18 17:35 02/10/18 17:56 Tylenol - PO 02/10/18 17:36 650 mg ONCE ONE Administration Ceftriaxone Sodium 1 gm/ 100 mls @ 200 mls/hr 02/10/18 17:36 02/10/18 17:56 Dextrose IVPB 02/10/18 18:05 200 mls/hr ONCE ONE Administration Protocol Sodium Chloride 1,000 mls @ 1,000 mls/hr 02/10/18 17:35 02/10/18 17:56 Normal Saline - IV 02/10/18 18:34 1,000 mls/hr ASDIR STA Administration Ketorolac Tromethamine 30 mg 02/10/18 17:34 02/10/18 17:55 Toradol Injection - IVPUSH 02/10/18 17:35 30 mg ONCE ONE Administration Ondansetron HCl 4 mg 02/10/18 17:42 02/10/18 17:57 Zofran Injection IVPUSH 02/10/18 17:43 4 mg ONCE ONE Administration Oxycodone/Acetaminophen 1 combo 02/10/18 19:00 02/10/18 19:09 Percocet 5/325 - PO 02/10/18 19:01 1 combo ONCE ONE Administration Medical Decision Making - Medical Decision Making 02/10/18 19:46 c/o minimal pain relief after percocet/ considering fever and sx consisted with pyelonephritis will admit for further management of care. 02/10/18 20:03 patient signed out to hospitalist for further management of care. *DC/Admit/Observation/Transfer Diagnosis at time of Disposition: Pyelonephritis - Discharge Dispostion Disposition: HOME Condition at time of disposition: Improved Decision to Admit order: Yes - Prescriptions - Referrals - Patient Instructions - Post Discharge Activity
--- NOTE | 2018-02-10 20:15 | HP ---
CHIEF COMPLAINT: fever, back pain PCP: Kristen Martinez HISTORY OF PRESENT ILLNESS: 62yo woman with history of recurrent UTIs with ESBL Ecoli, renal stones, depression /o right sided flank pain, dysuria, fever and chills for the past 2 days. Symptoms were not improving so she came to ER. In ER patient initially received rocephin but added meropenem given her history of ESBL Ecoli. ER course was notable for: (1) IV antibiotics (2) IV fluids (3) UA Recent Travel: no PAST MEDICAL HISTORY: UTIs, depression PAST SURGICAL HISTORY: none Social History: Smoking: no Alcohol: no Drugs: no Family History: none Allergies peach Allergy (Severe, Verified 09/25/17 13:58) THROAT CLOSES morphine Allergy (Intermediate, Verified 09/25/17 13:58) Itching Sulfa (Sulfonamide Antibiotics) Allergy (Mild, Verified 09/25/17 13:58) APPLES Allergy (Severe, Uncoded 09/25/17 13:58) "THROAT CLOSES" CARROTS Allergy (Severe, Uncoded 09/25/17 13:58) THROAT CLOSES STRAWBERRIES Allergy (Severe, Uncoded 09/25/17 13:58) "THROAT CLOSES" HOME MEDICATIONS: Home Medications Medication Instructions Recorded Alprazolam [Xanax] 0.5 mg PO TID 06/03/17 Aripiprazole [Abilify] 5 mg PO HS 06/03/17 Atorvastatin Calcium [Lipitor] 20 mg PO HS 06/03/17 Escitalopram Oxalate [Lexapro -] 20 mg PO DAILY 06/03/17 Ciprofloxacin [Cipro -] 500 mg PO Q12H #14 tablet 02/10/18 Ibuprofen [Motrin -] 800 mg PO Q6H #30 tablet 02/10/18 REVIEW OF SYSTEMS CONSTITUTIONAL: Absent: malaise, loss of appetite, weight change Present- fever, chills, diaphoresis, generalized weakness, HEENT: Absent: rhinorrhea, nasal congestion, throat pain, throat swelling, difficulty swallowing, mouth swelling, ear pain, eye pain, visual changes CARDIOVASCULAR: Absent: chest pain, syncope, palpitations, irregular heart rate, lightheadedness , peripheral edema RESPIRATORY: Absent: cough, shortness of breath, dyspnea with exertion, orthopnea, wheezing, stridor, hemoptysis GASTROINTESTINAL: Absent: abdominal pain, abdominal distension, nausea, vomiting, diarrhea, constipation, melena, hematochezia GENITOURINARY: Absent:, urgency, hesitancy, hematuria,, genital pain Present- dysuria, frequency, flank pain MUSCULOSKELETAL: Absent: myalgia, arthralgia, joint swelling, back pain, neck pain SKIN: Absent: rash, itching, pallor HEMATOLOGIC/IMMUNOLOGIC: Absent: easy bleeding, easy bruising, lymphadenopathy, frequent infections ENDOCRINE: Absent: unexplained weight gain, unexplained weight loss, heat intolerance, cold intolerance NEUROLOGIC: Absent: headache, focal weakness or paresthesias, dizziness, unsteady gait, seizure, mental status changes, bladder or bowel incontinence PSYCHIATRIC: Absent: anxiety, depression, suicidal or homicidal ideation, hallucinations. PHYSICAL EXAMINATION Vital Signs - 24 hr 02/10/18 02/10/18 15:44 19:09 Temperature 102.5 F H 100.5 F H Pulse Rate 107 H Pulse Rate [ 79 Right] Respiratory 18 17 Rate Blood Pressure 130/67 Blood Pressure 101/55 L [Left] O2 Sat by Pulse 100 98 Oximetry (%) GENERAL: Awake, alert, and fully oriented, in no acute distress. HEAD: Normal with no signs of trauma. EYES: Pupils equal, round and reactive to light, extraocular movements intact, sclera anicteric, conjunctiva clear. No lid lag. EARS, NOSE, THROAT: Ears normal, nares patent, oropharynx clear without exudates. Moist mucous membranes. NECK: Normal range of motion, supple without lymphadenopathy, JVD, or masses. LUNGS: Breath sounds equal, clear to auscultation bilaterally. No wheezes, and no crackles. No accessory muscle use. HEART: Tachycardia, normal S1 and S2 without murmur, rub or gallop. ABDOMEN: Soft, nontender, not distended, normoactive bowel sounds, no guarding, no rebound, no masses. No hepatomegaly or splenomegaly. MUSCULOSKELETAL: Normal range of motion at all joints. No bony deformities or tenderness. Right sided CVA tenderness UPPER EXTREMITIES: 2+ pulses, warm, well-perfused. No cyanosis. No clubbing. No peripheral edema. LOWER EXTREMITIES: 2+ pulses, warm, well-perfused. No calf tenderness. No peripheral edema. NEUROLOGICAL: Cranial nerves II-XII intact. Normal speech. PSYCHIATRIC: Cooperative. Good eye contact. Appropriate mood and affect. SKIN: Warm, dry, normal turgor, no rashes or lesions noted, normal capillary refill. Laboratory Results - last 24 hr 02/10/18 02/10/18 02/10/18 16:00 16:35 16:35 WBC 10.3 H RBC 4.55 Hgb 12.2 Hct 35.7 MCV 78.6 L MCH 26.8 MCHC 34.1 RDW 14.2 Plt Count 267 MPV 8.6 Absolute Neuts (auto) 8.3 H Neutrophils % 80.5 D Lymphocytes % 8.9 D Monocytes % 10.1 Eosinophils % 0.2 D Basophils % 0.3 Nucleated RBC % 0 Sodium 133 L Potassium 4.1 Chloride 99 Carbon Dioxide 26 Anion Gap 8 BUN 11 Creatinine 0.9 Creat Clearance w eGFR > 60 Random Glucose 151 H Calcium 8.5 Total Bilirubin 0.6 AST 29 ALT 30 Alkaline Phosphatase 96 Total Protein 7.5 Albumin 3.4 Urine Color Yellow Urine Appearance Slcloudy Urine pH 5.0 Ur Specific [place] 1.012 Urine Protein 1+ H Urine Glucose (UA) Negative Urine Ketones Negative Urine Blood Negative Urine Nitrite Negative Urine Bilirubin Negative Urine Urobilinogen Negative Ur Leukocyte Esterase 3+ H Urine WBC (Auto) 337 Urine RBC (Auto) 2 Ur Epithelial Cells Rare Urine Bacteria Rare Urine Mucus Rare Abdomen/Pelvis CT-reviewed, b/l nonobstructing renal calculi ASSESSMENT/PLAN: #62yo woman with sepsis secondary to right sided pyelonephritis complicated with renal calculi b/l. Given history of ESBL ecoli, will cover with meropenem instead of ceftriaxone. -med/surg -blood cultures x2 -urine culture -lactate level -follow VS closely -ID consult for meropenem approval -urology consult for renal stone removal -morphine IV for pain control -zofran IV prn for nausea/vomiting -IV fluid hydration #Depression -c/w SSRI and Abilify #DLP -atorvastatin -heparin sc for dvt ppx -regular diet Visit type - Emergency Visit Emergency Visit: Yes ED Registration Date: 02/10/18 Care time: The patient presented to the Emergency Department on the above date and was hospitalized for further evaluation of their emergent condition. - New Patient This patient is new to me today: Yes Date on this admission: 02/11/18 - Critical Care Critical Care patient: No
[2018-02-10] MEDS: SODIUM CHLORIDE 1,000 ML IV SCH (20:32)
[2018-02-10] MEDS ORDERED: MEROPENEM 1 GM in DEXTROSE 5%-WATER 100 ML IVPB ONE (20:45)
[2018-02-10 20:52] LABS: VENOUS PC02 36.2 mmHg (38-52); VENOUS PH 7.41 (7.32-7.42); VENOUS PO2 66.3 mmHg (28-48)
[2018-02-10] MEDS ORDERED: ATORVASTATIN CA 20 MG TABLET (FP) PO SCH (22:00)
[2018-02-10] MEDS ORDERED: ATORVASTATIN CA 10 MG TABLET (FP) ONE (22:49)
[2018-02-10] MEDS ORDERED: ARIPiprazole 5 MG TABLET (FP) ONE (22:49)
[2018-02-10] MEDS: HEPARIN NA (PORCINE) 5,000 UNITS/ML 1ML VIAL SQ SCH (22:50)
[2018-02-10] MEDS: ARIPiprazole 5 MG TABLET (FP) PO SCH (22:50)
[2018-02-10] MEDS ORDERED: HEPARIN NA (PORCINE) 5,000 UNITS/ML 1ML VIAL ONE (22:50)
--- NOTE | 2018-02-10 22:57 | PDOC ---
*Physical Exam - Vital Signs Last Vital Signs Temp Pulse Resp BP Pulse Ox 97.6 F 63 18 111/53 L 98 02/10/18 22:04 02/10/18 22:04 02/10/18 22:04 02/10/18 22:04 02/10/18 22:04 ED Treatment Course - LABORATORY CBC & Chemistry Diagram: 02/10/18 16:35 02/10/18 16:35 - ADDITIONAL ORDERS Additional order review: Laboratory Results 02/10/18 02/10/18 16:35 16:00 Sodium 133 L Potassium 4.1 Chloride 99 Carbon Dioxide 26 Anion Gap 8 BUN 11 Creatinine 0.9 Creat Clearance w eGFR > 60 Random Glucose 151 H Calcium 8.5 Total Bilirubin 0.6 AST 29 ALT 30 Alkaline Phosphatase 96 Total Protein 7.5 Albumin 3.4 Urine Color Yellow Urine Appearance Slcloudy Urine pH 5.0 Ur Specific Newell 1.012 Urine Protein 1+ H Urine Glucose (UA) Negative Urine Ketones Negative Urine Blood Negative Urine Nitrite Negative Urine Bilirubin Negative Urine Urobilinogen Negative Ur Leukocyte Esterase 3+ H Urine WBC (Auto) 337 Urine RBC (Auto) 2 Ur Epithelial Cells Rare Urine Bacteria Rare Urine Mucus Rare 02/10/18 16:35 RBC 4.55 MCV 78.6 L MCHC 34.1 RDW 14.2 MPV 8.6 Neutrophils % 80.5 D Lymphocytes % 8.9 D Monocytes % 10.1 Eosinophils % 0.2 D Basophils % 0.3 - Medications Given in the ED: ED Medications Discontinued Medications Generic Name Dose Route Start Last Admin Trade Name Freq PRN Reason Stop Dose Admin Acetaminophen 650 mg 02/10/18 17:35 02/10/18 17:56 Tylenol - PO 02/10/18 17:36 650 mg ONCE ONE Administration Ceftriaxone Sodium 1 gm/ 100 mls @ 200 mls/hr 02/10/18 17:36 02/10/18 17:56 Dextrose IVPB 02/10/18 18:05 200 mls/hr ONCE ONE Administration Protocol Sodium Chloride 1,000 mls @ 1,000 mls/hr 02/10/18 17:35 02/10/18 17:56 Normal Saline - IV 02/10/18 18:34 1,000 mls/hr ASDIR STA Administration Meropenem 1 gm/ Dextrose 100 mls @ 200 mls/hr 02/10/18 20:45 02/10/18 20:57 IVPB 02/10/18 21:14 200 mls/hr ONCE ONE Administration Ketorolac Tromethamine 30 mg 02/10/18 17:34 02/10/18 17:55 Toradol Injection - IVPUSH 02/10/18 17:35 30 mg ONCE ONE Administration Ondansetron HCl 4 mg 02/10/18 17:42 02/10/18 17:57 Zofran Injection IVPUSH 02/10/18 17:43 4 mg ONCE ONE Administration Oxycodone/Acetaminophen 1 combo 02/10/18 19:00 02/10/18 19:09 Percocet 5/325 - PO 02/10/18 19:01 1 combo ONCE ONE Administration Medical Decision Making - Medical Decision Making 02/10/18 22:56 febrile 62 yo female found to have pylonephritis and admitted for IV antibiotics I agree with the assessment and management of the case *DC/Admit/Observation/Transfer Diagnosis at time of Disposition: Pyelonephritis - Discharge Dispostion Condition at time of disposition: Unchanged/Unknown - Prescriptions - Referrals - Patient Instructions - Post Discharge Activity
[2018-02-11] MEDS ORDERED: MORPHINE SULFATE 2 MG/ML VIAL IVPUSH PRN (00:30)
[2018-02-11] MEDS ORDERED: ONDANSETRON 4 MG/2 ML VIAL IVPB PRN (00:32)
[2018-02-11] MEDS ORDERED: ACETAMINOPHEN 325 MG TABLET (FP) PO PRN (04:44)
[2018-02-11] MEDS ORDERED: oxyCODONE HCL 5 MG TABLET PO PRN (04:44)
[2018-02-11] MEDS: SODIUM CHLORIDE 1,000 ML IV SCH ×2 (05:11→21:18)
[2018-02-11] MEDS ORDERED: MEROPENEM 1 GM in DEXTROSE 5%-WATER 100 ML IVPB ONE (06:00)
[2018-02-11 09:07] LABS: HEMOGLOBIN 10.7 GM/dL (10.7-15.3); MCH 25.6 pg (25.7-33.7); MCHC 32.3 g/dl (32.0-36.0); MEAN CELL VOLUME 79.1 fl (80-96); MEAN PLT VOLUME 8.2 fl (7.5-11.1); PLATELET COUNT 228 K/MM3 (134-434); RBC 4.17 M/mm3 (3.60-5.2); RDW 14.3 % (11.6-15.6); WHITE BLOOD COUNT 8.6 K/mm3 (4.0-10.0)
[2018-02-11 09:45] LABS: ANION GAP 7 MMOL/L (8-16); BLOOD UREA NITROGEN 10 mg/dL (7-18); CHLORIDE 105 mmol/L (98-107); CO2 24 mmol/L (21-32); CREATININE 0.7 mg/dL (0.55-1.3); GLUCOSE,RANDOM 104 mg/dL (74-106); POTASSIUM 4.1 mmol/L (3.5-5.1); SODIUM 135 mmol/L (136-145)
[2018-02-11] MEDS ORDERED: ESCITALOPRAM OXALATE 20 MG TABLET (FP) PO SCH (10:00)
[2018-02-11] MEDS: HEPARIN NA (PORCINE) 5,000 UNITS/ML 1ML VIAL SQ SCH ×2 (10:10→21:19)
--- NOTE | 2018-02-11 10:37 | PN ---
Progress Note (short form) - Note Progress Note: has pain in flank dysuria+ Vital Signs - 24 hr 02/11/18 02/11/18 02/11/18 02:27 02:29 05:00 Temperature 98.1 F 102.8 F H Pulse Rate 90 97 H Respiratory 20 20 Rate Blood Pressure 158/86 141/68 O2 Sat by Pulse 96 Oximetry (%) 02/11/18 02/11/18 02/11/18 09:00 10:00 14:19 Temperature 100.2 F H 102.2 F H Pulse Rate 99 H 97 H Respiratory 19 20 19 Rate Blood Pressure 132/63 153/75 O2 Sat by Pulse 96 Oximetry (%) Current Medications Generic Name Dose Route Start Last Admin Trade Name Freq PRN Reason Stop Dose Admin Acetaminophen 325 mg 02/11/18 04:44 02/11/18 05:12 Tylenol - PO 325 mg Q6H PRN Administration PAIN LEVEL 6-10 Acetaminophen 650 mg 02/11/18 13:58 02/11/18 13:40 Tylenol - PO 650 mg Q6H PRN Administration FEVER OVER 101 Alprazolam 0.5 mg 02/11/18 11:02 02/11/18 11:48 Xanax - PO 0.5 mg Q8H PRN Administration ANXIETY Aripiprazole 5 mg 02/10/18 22:00 02/11/18 21:20 Abilify PO 5 mg HS LEELA Administration Heparin Sodium (Porcine) 5,000 unit 02/10/18 22:00 02/11/18 21:19 Heparin - SQ 5,000 unit BID LEELA Administration Sodium Chloride 1,000 mls @ 150 mls/hr 02/10/18 19:45 02/11/18 21:18 Normal Saline - IV 150 mls/hr ASDIR LEELA Administration Meropenem 1 gm/ Dextrose 100 mls @ 200 mls/hr 02/11/18 15:15 02/11/18 17:09 IVPB 200 mls/hr Q8H-IV LEELA Administration Ondansetron HCl 4 mg 02/11/18 00:32 Zofran Injection IVPB Q6H PRN NAUSEA Oxycodone HCl 5 mg 02/11/18 04:44 02/11/18 05:12 Roxicodone - PO 5 mg Q6H PRN Administration PAIN LEVEL 6-10 Sertraline HCl 100 mg 02/11/18 11:15 02/11/18 11:47 Zoloft - PO 100 mg DAILY LEELA Administration Laboratory Results - last 24 hr 02/11/18 02/11/18 08:50 08:50 WBC 8.6 RBC 4.17 Hgb 10.7 Hct 33.0 MCV 79.1 L MCH 25.6 L MCHC 32.3 RDW 14.3 Plt Count 228 MPV 8.2 Sodium 135 L Potassium 4.1 Chloride 105 Carbon Dioxide 24 Anion Gap 7 L BUN 10 Creatinine 0.7 Creat Clearance w eGFR > 60 Random Glucose 104 Calcium 8.0 L S1 S2 RRR Lungs clear Abd- soft ,tender suprapubic No edema tender CVA PLAN iv antibiotics Blood Cultures negative continue with meds ID eval eval Problem List - Problems (1) Fever Code(s): R50.9 - FEVER, UNSPECIFIED (2) Pyelonephritis Code(s): N12 - TUBULO-INTERSTITIAL NEPHRITIS, NOT SPCF ACUTE OR CHRONIC (3) Cystitis Code(s): N30.90 - CYSTITIS, UNSPECIFIED WITHOUT HEMATURIA
[2018-02-11] MEDS: SERTRALINE HCL 50 MG TABLET (FP) PO SCH (11:47)
[2018-02-11] MEDS: ALPRAZolam 0.25 MG TABLET PO PRN (11:48)
[2018-02-11] MEDS: ACETAMINOPHEN 325 MG TABLET (FP) PO PRN (13:40)
--- NOTE | 2018-02-11 14:44 | CON.ID ---
Consult Consult Specialty:: infectious disease Referred by:: dr quinn Reason for Consultation:: fever - History of Present Illness Chief Complaint: fever History of Present Illness: 62 yo female with PMH of nephrlithiasis and recurrent UTI (including ecoli esbl in 2017, ecoli in 2018) now with back pain last week Saturday and Saturday she had chills and tremors on saturday she had fevers on saturday she came to the ED no dysuria +right flank pain recent lithotripsy this summer ct scan no obstruction ua with pyuria fever to 102.8 no vomiting no diarrhea no cough no travel no sick contacts - History Source History Provided By: Patient, Family Member Limitations to Obtaining History: No Limitations - Past Medical History Pulmonary: Yes: Asthma Renal/: Yes: Renal Calculi, UTI ...: No - Past Surgical History Past Surgical History: Yes: Appendectomy, Cataract Removal, Cholecystectomy, Hernia Repair, Hysterectomy Additional Surgical History: parathyroid surgery - Alcohol/Substance Use Hx Alcohol Use: No - Smoking History Smoking history: Former smoker Have you smoked in the past 12 months: No Aproximately how many cigarettes per day: 0 If you are a former smoker, when did you quit?: 1995 - Social History Usual Living Arrangement: Alone ADL: Independent Occupation: not working Place of : Other ([facility]) History of Recent Travel: No Home Medications - Allergies Allergies/Adverse Reactions: Allergies Allergy/AdvReac Type Severity Reaction Status Date / Time peach Allergy Severe THROAT Verified 09/25/17 13:58 CLOSES morphine Allergy Intermediate Itching Verified 09/25/17 13:58 Sulfa (Sulfonamide Allergy Mild Verified 09/25/17 13:58 Antibiotics) APPLES Allergy Severe Uncoded 09/25/17 13:58 CARROTS Allergy Severe Uncoded 09/25/17 13:58 STRAWBERRIES Allergy Severe Uncoded 09/25/17 13:58 - Home Medications Home Medications: Ambulatory Orders Alprazolam [Xanax] 0.5 mg PO TID 06/03/17 Aripiprazole [Abilify] 5 mg PO HS 06/03/17 Atorvastatin Calcium [Lipitor] 20 mg PO HS 06/03/17 Escitalopram Oxalate [Lexapro -] 20 mg PO DAILY 06/03/17 Ibuprofen [Motrin -] 800 mg PO Q6H #30 tablet 02/10/18 Sertraline HCl [Zoloft] 100 mg PO DAILY 02/10/18 Zolpidem Tartrate [Ambien] 10 mg PO HS 02/10/18 Family Disease History - Family Disease History Family Disease History: CA: Grandparent, Father, Mother Review of Systems - Review of Systems Constitutional: reports: Chills, Fever Eyes: reports: No Symptoms HENT: reports: No Symptoms. denies: Difficult Swallowing, Throat Pain Neck: reports: No Symptoms Cardiovascular: reports: No Symptoms. denies: Chest Pain Respiratory: reports: No Symptoms. denies: Cough Gastrointestinal: reports: No Symptoms. denies: Abdominal Pain Genitourinary: reports: Flank Pain (right). denies: Burning, Discharge Integumentary: denies: Rash Neurological: reports: No Symptoms Physical Exam Vital Signs: Vital Signs Temperature 100.2 F H 02/11/18 10:00 Pulse Rate 99 H 02/11/18 10:00 Respiratory Rate 20 02/11/18 10:00 Blood Pressure 132/63 02/11/18 10:00 O2 Sat by Pulse Oximetry (%) 96 02/11/18 02:29 Constitutional: Yes: Well Nourished, No Distress, Calm Eyes: Yes: Conjunctiva Clear HENT: No: Pharyngeal Erythema, Thrush Neck: Yes: Supple Cardiovascular: Yes: Regular Rate and Rhythm Respiratory: Yes: Regular, CTA Bilaterally Gastrointestinal: Yes: Normal Bowel Sounds, Soft ...Rectal Exam: Yes: Deferred Renal/: Yes: CVA Tenderness - Right Edema: No Neurological: Yes: Alert, Oriented Labs: CBC, BMP 02/11/18 08:50 02/11/18 08:50 Laboratory Tests 02/10/18 16:00 Ur Leukocyte Esterase 3+ H Urine WBC (Auto) 337 Urine RBC (Auto) 2 Imaging - Results Cat Scan: Report Reviewed Problem List - Problems (1) Fever Code(s): R50.9 - FEVER, UNSPECIFIED (2) Pyelonephritis Code(s): N12 - TUBULO-INTERSTITIAL NEPHRITIS, NOT SPCF ACUTE OR CHRONIC (3) Nephrolithiasis Code(s): N20.0 - CALCULUS OF KIDNEY (4) History of ESBL E. coli infection Code(s): Z86.19 - PERSONAL HISTORY OF OTHER INFECTIOUS AND PARASITIC DISEASES Assessment/Plan fever pyuria with flank pain suspect sepsis due to uti pyelonephritis nonobstructing stones on CT scan prior history of esbl organisms continue meropenem f/u cultures sulfa allergy noted
[2018-02-11] MEDS ORDERED: PT OWN MED DRAWER 7, Y5N ONE (15:44)
[2018-02-11] MEDS: MEROPENEM 1 GM in DEXTROSE 5%-WATER 100 ML IVPB SCH ×2 (16:53→17:09)
[2018-02-11] MEDS: ARIPiprazole 5 MG TABLET (FP) PO SCH (21:20)
[2018-02-12] MEDS: MEROPENEM 1 GM in DEXTROSE 5%-WATER 100 ML IVPB SCH ×3 (02:45→17:38)
[2018-02-12] MEDS: SODIUM CHLORIDE 1,000 ML IV SCH ×2 (07:15→13:54)
[2018-02-12] MEDS ORDERED: PT OWN MED DRAWER 7, Y5N ONE ×2 (09:56→17:35)
[2018-02-12] MEDS: SERTRALINE HCL 50 MG TABLET (FP) PO SCH (10:00)
[2018-02-12] MEDS: HEPARIN NA (PORCINE) 5,000 UNITS/ML 1ML VIAL SQ SCH ×2 (10:00→21:06)
[2018-02-12] MEDS: ALPRAZolam 0.25 MG TABLET PO PRN ×2 (10:14→21:06)
--- NOTE | 2018-02-12 12:26 | PN ---
Progress Note (short form) - Note Progress Note: feels much better no fevers headaches resolved less flank pain Vital Signs Period Temp Pulse Resp BP Sys/Richards Pulse Ox Last 24 Hr 97.9 F-102.2 F 69-97 18-19 116-153/61-75 96-96 cor-rrr lungs clear abd soft,nt ext no edema CBC, BMP 02/11/18 08:50 02/11/18 08:50 Microbiology 02/10/18 16:00 Urine - Urine Clean Catch Urine Culture - Preliminary Lactose Fermenting Neg Bacilli 02/10/18 20:35 Blood - Peripheral Venous Blood Culture - Preliminary NO GROWTH OBTAINED AFTER 24 HOURS, INCUBATION TO CONTINUE FOR 4 DAYS. 02/10/18 20:35 Blood - Peripheral Venous Blood Culture - Preliminary NO GROWTH OBTAINED AFTER 24 HOURS, INCUBATION TO CONTINUE FOR 4 DAYS. 02/10/18 16:35 Blood - Peripheral Venous Blood Culture - Preliminary NO GROWTH OBTAINED AFTER 24 HOURS, INCUBATION TO CONTINUE FOR 4 DAYS. a/p suspected pyelonephritis history esbl organisms continue meroopenem f/u cultures clinically improved Problem List - Problems (1) Fever Code(s): R50.9 - FEVER, UNSPECIFIED (2) Pyelonephritis Code(s): N12 - TUBULO-INTERSTITIAL NEPHRITIS, NOT SPCF ACUTE OR CHRONIC (3) Nephrolithiasis Code(s): N20.0 - CALCULUS OF KIDNEY (4) History of ESBL E. coli infection Code(s): Z86.19 - PERSONAL HISTORY OF OTHER INFECTIOUS AND PARASITIC DISEASES
[2018-02-12] MEDS: ACETAMINOPHEN 325 MG TABLET (FP) PO PRN (13:50)
--- NOTE | 2018-02-12 18:28 | PN ---
Progress Note (short form) - Note Progress Note: decreased pain in flank Decreased abd pain better today Vital Signs - 24 hr 02/11/18 02/11/18 02/11/18 18:34 21:00 22:00 Temperature 99.2 F 99.9 F H Pulse Rate 82 80 Respiratory 18 18 18 Rate Blood Pressure 125/74 116/61 O2 Sat by Pulse 96 Oximetry (%) 02/12/18 02/12/18 02/12/18 02:00 06:00 09:00 Temperature 99.9 F H 97.9 F Pulse Rate 69 Respiratory 18 18 Rate Blood Pressure 129/75 O2 Sat by Pulse 96 Oximetry (%) 02/12/18 02/12/18 10:16 14:26 Temperature 98.7 F 98.8 F Pulse Rate 73 71 Respiratory 18 20 Rate Blood Pressure 121/73 150/76 O2 Sat by Pulse Oximetry (%) Current Medications Generic Name Dose Route Start Last Admin Trade Name Freq PRN Reason Stop Dose Admin Acetaminophen 325 mg 02/11/18 04:44 02/11/18 05:12 Tylenol - PO 325 mg Q6H PRN Administration PAIN LEVEL 6-10 Acetaminophen 650 mg 02/11/18 13:58 02/12/18 13:50 Tylenol - PO 650 mg Q6H PRN Administration FEVER OVER 101 Alprazolam 0.5 mg 02/11/18 11:02 02/12/18 10:14 Xanax - PO 0.5 mg Q8H PRN Administration ANXIETY Aripiprazole 5 mg 02/10/18 22:00 02/11/18 21:20 Abilify PO 5 mg HS LEELA Administration Heparin Sodium (Porcine) 5,000 unit 02/10/18 22:00 02/12/18 10:00 Heparin - SQ 5,000 unit BID LEELA Administration Meropenem 1 gm/ Dextrose 100 mls @ 200 mls/hr 02/11/18 15:15 02/12/18 17:38 IVPB 200 mls/hr Q8H-IV LEELA Administration Sodium Chloride 1,000 mls @ 100 mls/hr 02/12/18 11:54 02/12/18 13:54 Normal Saline - IV 100 mls/hr ASDIR LEELA Administration Ondansetron HCl 4 mg 02/11/18 00:32 Zofran Injection IVPB Q6H PRN NAUSEA Oxycodone HCl 5 mg 02/11/18 04:44 02/11/18 05:12 Roxicodone - PO 5 mg Q6H PRN Administration PAIN LEVEL 6-10 Sertraline HCl 100 mg 02/11/18 11:15 02/12/18 10:00 Zoloft - PO 100 mg DAILY LEELA Administration S1 S2 RRR Lungs clear Abd- soft ,tender suprapubic No edema tender CVA PLAN iv antibiotics Blood Cultures negative continue with meds ID eval appreciated eval OOB xanax prn Problem List - Problems (1) Fever Code(s): R50.9 - FEVER, UNSPECIFIED (2) Pyelonephritis Code(s): N12 - TUBULO-INTERSTITIAL NEPHRITIS, NOT SPCF ACUTE OR CHRONIC (3) Cystitis Code(s): N30.90 - CYSTITIS, UNSPECIFIED WITHOUT HEMATURIA
[2018-02-12] MEDS: ARIPiprazole 5 MG TABLET (FP) PO SCH (21:05)
[2018-02-13] MEDS: ACETAMINOPHEN 325 MG TABLET (FP) PO PRN ×3 (01:40→15:06)
[2018-02-13] MEDS: MEROPENEM 1 GM in DEXTROSE 5%-WATER 100 ML IVPB SCH ×2 (01:41→09:32)
[2018-02-13] MEDS: SODIUM CHLORIDE 1,000 ML IV SCH ×3 (05:28→14:52)
[2018-02-13] MEDS ORDERED: PT OWN MED DRAWER 7, Y5N ONE (09:30)
[2018-02-13] MEDS: HEPARIN NA (PORCINE) 5,000 UNITS/ML 1ML VIAL SQ SCH ×2 (09:32→21:51)
[2018-02-13] MEDS: SERTRALINE HCL 50 MG TABLET (FP) PO SCH (09:32)
[2018-02-13] MEDS: ALPRAZolam 0.25 MG TABLET PO PRN ×2 (09:42→21:50)
--- NOTE | 2018-02-13 15:22 | PN ---
Progress Note (short form) - Note Progress Note: feels much better no fevers less flank pain Vital Signs Period Temp Pulse Resp BP Sys/Richards Pulse Ox Last 24 Hr 98 F-98.0 F 66-76 18-18 133-135/76-82 95 cor-rrr lungs clear abd soft,nt ext no edema CBC, BMP 02/11/18 08:50 02/11/18 08:50 Microbiology 02/10/18 16:00 Urine - Urine Clean Catch Urine Culture - Final Escherichia Coli Esbl Portfolio Administrator 02/10/18 20:35 Blood - Peripheral Venous Blood Culture - Preliminary NO GROWTH OBTAINED AFTER 48 HOURS, INCUBATION TO CONTINUE FOR 3 DAYS. 02/10/18 20:35 Blood - Peripheral Venous Blood Culture - Preliminary NO GROWTH OBTAINED AFTER 48 HOURS, INCUBATION TO CONTINUE FOR 3 DAYS. 02/10/18 16:35 Blood - Peripheral Venous Blood Culture - Preliminary NO GROWTH OBTAINED AFTER 48 HOURS, INCUBATION TO CONTINUE FOR [address] scan no obstruction a/p pyelonephritis history of ephrolithiasis history esbl organisms improving no more fever, less flank pain switch to ertapenem daily day #[address] picc line and treat total 14 days urology evaluation pending contact isolation Problem List - Problems (1) Fever Code(s): R50.9 - FEVER, UNSPECIFIED (2) Pyelonephritis Code(s): N12 - TUBULO-INTERSTITIAL NEPHRITIS, NOT SPCF ACUTE OR CHRONIC (3) Nephrolithiasis Code(s): N20.0 - CALCULUS OF KIDNEY (4) History of ESBL E. coli infection Code(s): Z86.19 - PERSONAL HISTORY OF OTHER INFECTIOUS AND PARASITIC DISEASES
[2018-02-13] MEDS ORDERED: ERTAPENEM SODIUM 1 GM/50 ML PRE-DOCKED IVPB SCH (15:30)
--- NOTE | 2018-02-13 16:28 | PN ---
Progress Note (short form) - Note Progress Note: decreased pain in flank Decreased abd pain better today decreased headaches daughter at bedside Vital Signs - 24 hr 02/12/18 02/13/18 02/13/18 19:56 06:00 09:00 Temperature 98 F 98.0 F Pulse Rate 72 66 Respiratory 18 18 Rate Blood Pressure 133/82 135/76 O2 Sat by Pulse 95 Oximetry (%) 02/13/18 02/13/18 09:04 14:41 Temperature 98 F 97.9 F Pulse Rate 76 73 Respiratory 18 20 Rate Blood Pressure 133/80 126/70 O2 Sat by Pulse Oximetry (%) Current Medications Generic Name Dose Route Start Last Admin Trade Name Freq PRN Reason Stop Dose Admin Acetaminophen 325 mg 02/11/18 04:44 02/11/18 05:12 Tylenol - PO 325 mg Q6H PRN Administration PAIN LEVEL 6-10 Acetaminophen 650 mg 02/11/18 13:58 02/13/18 15:06 Tylenol - PO 650 mg Q6H PRN Administration FEVER OVER 101 Alprazolam 0.5 mg 02/11/18 11:02 02/13/18 09:42 Xanax - PO 0.5 mg Q8H PRN Administration ANXIETY Aripiprazole 5 mg 02/10/18 22:00 02/12/18 21:05 Abilify PO 5 mg HS LEELA Administration Heparin Sodium (Porcine) 5,000 unit 02/10/18 22:00 02/13/18 09:32 Heparin - SQ 5,000 unit BID LEELA Administration Sodium Chloride 1,000 mls @ 100 mls/hr 02/12/18 11:54 02/13/18 14:52 Normal Saline - IV 100 mls/hr ASDIR LEELA Administration Ertapenem 1 gm/ Sodium 50 mls @ 100 mls/hr 02/13/18 17:00 Chloride IVPB DAILY LEELA Ondansetron HCl 4 mg 02/11/18 00:32 Zofran Injection IVPB Q6H PRN NAUSEA Oxycodone HCl 5 mg 02/11/18 04:44 02/11/18 05:12 Roxicodone - PO 5 mg Q6H PRN Administration PAIN LEVEL 6-10 Sertraline HCl 100 mg 02/11/18 11:15 02/13/18 09:32 Zoloft - PO 100 mg DAILY LEELA Administration S1 S2 RRR Lungs clear Abd- soft ,no tenderness no edema PLAN iv antibiotics Blood Cultures negative continue with meds picc line tomorrow eval pending OOB xanax prn Problem List - Problems (1) Fever Code(s): R50.9 - FEVER, UNSPECIFIED (2) Pyelonephritis Code(s): N12 - TUBULO-INTERSTITIAL NEPHRITIS, NOT SPCF ACUTE OR CHRONIC (3) Cystitis Code(s): N30.90 - CYSTITIS, UNSPECIFIED WITHOUT HEMATURIA
[2018-02-13] MEDS: ERTAPENEM SODIUM 1 GM in SODIUM CHLORIDE 50 ML IVPB SCH (17:13)
[2018-02-13 19:56] LABS: INR 1.33 (0.83-1.09); PROTHROMBIN TIME (PATIENT) 15.7 SEC (9.7-13.0)
[2018-02-13] MEDS: ARIPiprazole 5 MG TABLET (FP) PO SCH (21:51)
[2018-02-14] MEDS: SODIUM CHLORIDE 1,000 ML IV SCH (02:33)
[2018-02-14] MEDS: ACETAMINOPHEN 325 MG TABLET (FP) PO PRN (06:00)
--- NOTE | 2018-02-14 09:29 | CON.GU ---
Consult Consult Specialty:: Referred by:: MED Reason for Consultation:: UATI, kidney stones - History of Present Illness Chief Complaint: UTI, kidney stones History of Present Illness: 62 year old female with a history of kidney stones who presents with back pain and a UTI. She also has a history of ALONA treated with a sling two years ago. CT scan shows no obstruction. She has punctate calculi - History Source History Provided By: Patient, Medical Record Limitations to Obtaining History: No Limitations - Past Medical History Pulmonary: Yes: Asthma Renal/: Yes: Renal Calculi, UTI ...: No - Past Surgical History Past Surgical History: Yes: Appendectomy, Cataract Removal, Cholecystectomy, Hernia Repair, Hysterectomy Additional Surgical History: parathyroid surgery - Alcohol/Substance Use Hx Alcohol Use: No - Smoking History Smoking history: Former smoker Have you smoked in the past 12 months: No Aproximately how many cigarettes per day: 0 If you are a former smoker, when did you quit?: 1995 - Social History Usual Living Arrangement: Alone ADL: Independent Occupation: not working History of Recent Travel: No Home Medications - Allergies Allergies/Adverse Reactions: Allergies Allergy/AdvReac Type Severity Reaction Status Date / Time peach Allergy Severe THROAT Verified 09/25/17 13:58 CLOSES morphine Allergy Intermediate Itching Verified 09/25/17 13:58 Sulfa (Sulfonamide Allergy Mild Verified 09/25/17 13:58 Antibiotics) APPLES Allergy Severe Uncoded 09/25/17 13:58 CARROTS Allergy Severe Uncoded 09/25/17 13:58 STRAWBERRIES Allergy Severe Uncoded 09/25/17 13:58 - Home Medications Home Medications: Ambulatory Orders Alprazolam [Xanax] 0.5 mg PO TID 06/03/17 Aripiprazole [Abilify] 5 mg PO HS 06/03/17 Atorvastatin Calcium [Lipitor] 20 mg PO HS 06/03/17 Escitalopram Oxalate [Lexapro -] 20 mg PO DAILY 06/03/17 Ibuprofen [Motrin -] 800 mg PO Q6H #30 tablet 02/10/18 Sertraline HCl [Zoloft] 100 mg PO DAILY 02/10/18 Zolpidem Tartrate [Ambien] 10 mg PO HS 02/10/18 Family Disease History - Family Disease History Family Disease History: CA: Grandparent, Father, Mother Review of Systems - Review of Systems Genitourinary: reports: Flank Pain, Frequency Musculoskeletal: reports: Back Pain Physical Exam- Vital Signs: Vital Signs Temperature 98.7 F 02/14/18 06:00 Pulse Rate 73 02/14/18 06:00 Respiratory Rate 20 02/14/18 06:00 Blood Pressure 149/91 02/14/18 06:00 O2 Sat by Pulse Oximetry (%) 95 02/13/18 09:00 Constitutional: Yes: Well Nourished, No Distress, Calm Renal/: No: Bladder Distention, CVA Tenderness - Left, CVA Tenderness - Right , Qiu Present Labs: CBC, BMP 02/11/18 08:50 02/11/18 08:50 Imaging - Results Cat Scan: Report Reviewed Problem List - Problems (1) History of ESBL E. coli infection Assessment/Plan: uncomplicated UTI. she is feeling better. no surgical intervention needed at this time. continue abx and follow up as outpatient. Code(s): Z86.19 - PERSONAL HISTORY OF OTHER INFECTIOUS AND PARASITIC DISEASES (2) Nephrolithiasis Code(s): N20.0 - CALCULUS OF KIDNEY
[2018-02-14] MEDS: ERTAPENEM SODIUM 1 GM in SODIUM CHLORIDE 50 ML IVPB SCH (10:57)
[2018-02-14] MEDS: SERTRALINE HCL 50 MG TABLET (FP) PO SCH (10:57)
[2018-02-14] MEDS: HEPARIN NA (PORCINE) 5,000 UNITS/ML 1ML VIAL SQ SCH (10:57)
[2018-02-14] MEDS: ALPRAZolam 0.25 MG TABLET PO PRN (10:59)
--- NOTE | 2018-02-14 13:21 | DS ---
Physical Examination Vital Signs: Vital Signs Temperature 98.7 F 02/14/18 06:00 Pulse Rate 73 02/14/18 06:00 Respiratory Rate 20 02/14/18 06:00 Blood Pressure 149/91 02/14/18 06:00 O2 Sat by Pulse Oximetry (%) 95 02/13/18 09:00 Constitutional: Yes: No Distress, Calm Cardiovascular: Yes: Regular Rate and Rhythm Respiratory: Yes: CTA Bilaterally Gastrointestinal: Yes: Normal Bowel Sounds, Soft. No: Tenderness Edema: No Labs: CBC, BMP 02/11/18 08:50 02/11/18 08:50 Discharge Summary Reason For Visit: FLANK PAIN/PYELONEHRITIS Current Active Problems Fever (Acute) History of ESBL E. coli infection (Acute) Nephrolithiasis (Acute) Pyelonephritis (Acute) Hospital Course: Admitted for UTI, pylenonephritis Seen by ID and Urology Cultures positive for ESBL Will be on Ertapenum for 10 more days Stable for dc home with picc line for iv antibiotics Condition: Improved - Instructions Diet, Activity, Other Instructions: You were treated for a kidney infection Take medications as directed If symptoms persist or worsen, return to ED Otherwise, follow with your PMD Referrals: Kristen Price MD [Primary Care Provider] - Disposition: HOME - Home Medications Comprehensive Discharge Medication List: Ambulatory Orders Alprazolam [Xanax] 0.5 mg PO TID 06/03/17 Aripiprazole [Abilify] 5 mg PO HS 06/03/17 Atorvastatin Calcium [Lipitor] 20 mg PO HS 06/03/17 Escitalopram Oxalate [Lexapro -] 20 mg PO DAILY 06/03/17 Ibuprofen [Motrin -] 800 mg PO Q6H #30 tablet 02/10/18 Sertraline HCl [Zoloft] 100 mg PO DAILY 02/10/18 Zolpidem Tartrate [Ambien] 10 mg PO HS 02/10/18 Ertapenem Sodium [Invanz -] 1 gm IVPB DAILY #10 vial 02/14/18
[2018-02-14 15:46] VITALS: BP 132/70; PULSE 67; TEMP 97.8
== END 2018-02-14 16:19 | disposition home or self-care (01) | DRG 463 ==
LOC: JER 15:25 → JERBED 20:01 → J5S 02-11 01:53
PROVIDERS: ADMIT Internal Medicine; ATTEND Internal Medicine
PROC: 02HV33Z Insertion of Infusion Device into Superior Vena Cava, Percutaneous Approach (ICD-10-PCS; principal; 2018-02-14)
PROC: B548ZZA Ultrasonography of Superior Vena Cava, Guidance (ICD-10-PCS; 2018-02-14)
DX: N10 Acute pyelonephritis (principal); N12 Tubulo-interstitial nephritis, not specified as acute or chronic; F32.9 Major depressive disorder, single episode, unspecified; Z87.440 Personal history of urinary (tract) infections; N20.0 Calculus of kidney; N39.0 Urinary tract infection, site not specified
CPT/HCPCS: 36415; 36569; 74176; 77001-TC-FY; 80048; 80053; 81003; 81015; 82803; 83605; 84484; 85025; 85027; 85610; 87040; 87086; 87186; 99283-25; C1751; J1644; J7030

== ENCOUNTER 2018-06-22 08:33 | Emergency (ER) | payer OTHER ==
[2018-06-22 08:38] VITALS: BMI 26.6
--- NOTE | 2018-06-22 09:17 | PDOC ---
History of Present Illness - General Chief Complaint: Pain, Acute Stated Complaint: KIDNEY STONES Time Seen by Provider: 06/22/18 09:10 - History of Present Illness Initial Comments: 62F w/ a history of HTN and hx of kidney stones 1 week of R flank pain. Hematuria that has since resolved. Endorses nausea. Tried marijuana last night for pain with little relief. Denies fevers, dysuria, diarrhea 06/22/18 09:18 Past History - Past Medical History Allergies/Adverse Reactions: Allergies Allergy/AdvReac Type Severity Reaction Status Date / Time peach Allergy Severe THROAT Verified 06/22/18 08:38 CLOSES morphine Allergy Intermediate Itching Verified 06/22/18 08:38 Sulfa (Sulfonamide Allergy Mild Verified 06/22/18 08:38 Antibiotics) APPLES Allergy Severe Uncoded 06/22/18 08:38 CARROTS Allergy Severe Uncoded 06/22/18 08:38 STRAWBERRIES Allergy Severe Uncoded 06/22/18 08:38 Home Medications: Ambulatory Orders Alprazolam [Xanax] 0.5 mg PO TID 06/03/17 Aripiprazole [Abilify] 5 mg PO HS 06/03/17 Atorvastatin Calcium [Lipitor] 20 mg PO HS 06/03/17 Escitalopram Oxalate [Lexapro -] 20 mg PO DAILY 06/03/17 Ibuprofen [Motrin -] 800 mg PO Q6H #30 tablet 02/10/18 Sertraline HCl [Zoloft] 100 mg PO DAILY 02/10/18 Zolpidem Tartrate [Ambien] 10 mg PO HS 02/10/18 Ertapenem Sodium [Invanz -] 1 gm IVPB DAILY #10 vial 02/14/18 Lactobacillus Acidophilus [Bacid -] 1 each PO BID #20 capsule 02/14/18 Ibuprofen 800 mg PO TID PRN #30 tablet 06/22/18 Anemia: No Asthma: Yes Cancer: No Cardiac Disorders: No CVA: No COPD: No CHF: No DVT: No Dementia: No Diabetes: No GI Disorders: Yes (gastritis) Disorders: Yes (kidney stones X5 , UTI PRESENT) HTN: Yes Hypercholesterolemia: Yes Kidney Stones: Yes Liver Disease: No Seizures: No Thyroid Disease: Yes - Surgical History Abdominal Surgery: Yes (HERNIA) Appendectomy: Yes Cardiac Surgery: No Cholecystectomy: Yes Lung Surgery: No Neurologic Surgery: No Orthopedic Surgery: Yes (CTR RIGHT AND LEFT HAND, LEFT TRIGGER FINGER RELEASE) - Reproductive History Cervical CA: No Dysfunctional Uterine Bleeding: No Ectopic : No Endometrial CA: No Polycystic Ovaries: No Tubal Ligation: No - Immunization History Immunization Up to Date: No - Suicide/Smoking/Psychosocial Hx Smoking History: Never smoked Have you smoked in the past 12 months: No Number of Cigarettes Smoked Daily: 0 If you are a former smoker, when did you quit?: 1995 Hx Alcohol Use: No Drug/Substance Use Hx: No Substance Use Type: None Hx Substance Use Treatment: No *Physical Exam - Vital Signs Last Vital Signs Temp Pulse Resp BP Pulse Ox 97.8 F 74 18 146/85 99 06/22/18 08:36 06/22/18 08:36 06/22/18 08:36 06/22/18 08:36 06/22/18 08:36 - Physical Exam Comments: GENERAL: Awake, alert, and oriented to person/place/time, in no acute distress HEAD: No signs of trauma, normocephalic, atraumatic EYES: PERRLA, EOMI, sclera anicteric, conjunctiva clear ENT: Hearing grossly normal, nares patent, oropharynx clear without exudates. Moist mucosa LUNGS: No distress, speaks full sentences, clear to auscultation bilaterally HEART: Regular rate and rhythm, normal S1 and S2, no murmurs appreciated, peripheral pulses normal and equal bilaterally ABDOMEN: Soft, R flank/suprapubic TTP w/o rebound or guarding; +R CVA TTP; normoactive bowel sounds EXTREMITIES: Normal inspection, Normal range of motion, no edema. No clubbing or cyanosis NEUROLOGICAL: Cranial nerves II through XII grossly intact. Normal speech, no focal sensorimotor deficits SKIN: Warm, Dry 06/22/18 09:26 ED Treatment Course - LABORATORY CBC & Chemistry Diagram: 06/22/18 09:35 06/22/18 09:35 *DC/Admit/Observation/Transfer Diagnosis at time of Disposition: Back pain Qualifiers: Back pain location: back pain in unspecified location Chronicity: unspecified Back pain laterality: right Qualified Code(s): M54.9 - Dorsalgia, unspecified - Discharge Dispostion Disposition: HOME Condition at time of disposition: Stable Decision to Admit order: No - Prescriptions Prescriptions: Ibuprofen 800 mg PO TID PRN #30 tablet PRN Reason: Pain - Referrals Referrals: Kristen Price MD [Primary Care Provider] - - Patient Instructions Printed Discharge Instructions: DI for Low Back Pain Additional Instructions: You were seen in the Emergency Department for evaluation of back pain. Your labs were unremarkable and your CT scan was negative for acute pathology. Review the handout provided at discharge. A prescription for Ibuprofen was sent to your pharmacy, take as directed. Return to the Emergency Department if you develop fevers/chills, blood in your urine, worsening symptoms, or any new/ concerning symptoms. - Post Discharge Activity
[2018-06-22] MEDS ORDERED: KETOROLAC TROMETHAMINE 15 MG/ML VIAL IVPUSH ONE (09:18)
[2018-06-22 09:44] LABS: BASO % 0.9 % (0-2.0); EOS % 1.6 % (0-4.5); HEMOGLOBIN 12.4 GM/dL (10.7-15.3); LYMPH % 28.3 % (8-40); MCH 25.5 pg (25.7-33.7); MCHC 32.6 g/dl (32.0-36.0); MEAN CELL VOLUME 78.1 fl (80-96); MEAN PLT VOLUME 8.4 fl (7.5-11.1); MONO % 7.6 % (3.8-10.2); NEUT % 61.6 % (42.8-82.8); PLATELET COUNT 233 K/MM3 (134-434); RBC 4.86 M/mm3 (3.60-5.2); RDW 16.5 % (11.6-15.6); WHITE BLOOD COUNT 4.9 K/mm3 (4.0-10.0)
--- NOTE | 2018-06-22 10:01 | PDOC ---
Attending Attestation - Resident Resident Name: Herbert Kauffman - ED Attending Attestation I have performed the following: I have examined & evaluated the patient, The case was reviewed & discussed with the resident, I agree w/resident's findings & plan, Exceptions are as noted - HPI HPI: 06/22/18 09:58 62-year-old female history of hypertension and previous kidney stones here today complaining of right flank pain. Started approximately 1 week ago states pain is similar to her previous stones sharp in quality unrelenting she has required lithotripsy in the past and had hematuria 1 week ago but has since resolved. Denies any fevers chills or . . She does have nausea without vomiting. does c/o dysuria. did not take anything for pain, tried THC no relief. surgical hx: cholecystectomy.hysterectomy - Physicial Exam PE: 06/22/18 10:00 awake alert lungs clear bilaterally heart rrr no mrg. abd soft right mid abd , rlq ttp. right cva ttp. skin warm and dry. nuero alert oriented x 3. 06/22/18 10:32 - Medical Decision Making 06/22/18 10:00 h/o renal colic, here wtih flank pain. differential renal colic, uti pyelo. plan focused ED us renal, bladder pain control labs ua urine culture. reassess. possible CT a/p 06/22/18 10:32 focused ED ultrasound renal indication right flank pain r/o hydroneprhosis. bilateral kidneys scanned in two planes. no hydronephrosis noted. right kidney diameter 9.79 cm left kidney diameter 10.97cm bladder non-distended. impression :normal renal ultrasaound. will obtain ct a/p 06/22/18 13:17 ct negative for utereral stones, no hydro. otherwise unremarkable. ua negative for uti. will dc home. d/w dr moore will see pt in office.
[2018-06-22 10:20] LABS: ALBUMIN 3.7 g/dl (3.4-5.0); ALK PHOS 86 U/L (45-117); ANION GAP 7 MMOL/L (8-16); BILIRUBIN,TOTAL 0.3 mg/dL (0.2-1); BLOOD UREA NITROGEN 19 mg/dL (7-18); CALCIUM 9.2 mg/dL (8.5-10.1); CHLORIDE 107 mmol/L (98-107); CO2 26 mmol/L (21-32); CREATININE 0.7 mg/dL (0.55-1.3); GLUCOSE,RANDOM 100 mg/dL (74-106); POTASSIUM 4.3 mmol/L (3.5-5.1); SGOT/AST 20 U/L (15-37); SGPT/ALT 26 U/L (13-61); SODIUM 140 mmol/L (136-145); TOT PROT 7.4 g/dl (6.4-8.2)
[2018-06-22] MEDS ORDERED: KETOROLAC TROMETHAMINE 15 MG/ML VIAL ONE (10:28)
[2018-06-22] MEDS ORDERED: SODIUM CHLORIDE 0.9% 1000 ML INFUS.BAG IV ONE (10:36)
[2018-06-22 10:56] LABS: PH,URINE 6.5 (5.0-8.0); URINE APPEARANCE CLEAR; URINE BILIRUBIN NEGATIVE (NEGATIVE); URINE COLOR YELLOW; URINE GLUCOSE (UA) NEGATIVE (NEGATIVE); URINE KETONE NEGATIVE (NEGATIVE); URINE LEUK ESTERASE NEGATIVE (NEGATIVE); URINE NITRITE NEGATIVE (NEGATIVE); URINE PROTEIN NEGATIVE (NEGATIVE); URINE UROBILINOGEN 0.2 mg/dL (0.2-1.0)
[2018-06-22] MEDS ORDERED: ACETAMINOPHEN 1000 MG/100 ML VIAL (NON FORMULARY) IVPB ONE (11:09)
[2018-06-22] MEDS ORDERED: ACETAMINOPHEN INJECTION 100 ML IVPB ONE (11:13)
[2018-06-22 13:58] VITALS: BP 130/72; PULSE 60; TEMP 98.7
== END 2018-06-22 13:59 | disposition home or self-care (01) ==
LOC: JER 08:33
PROC: 3E033NZ Introduction of Analgesics, Hypnotics, Sedatives into Peripheral Vein, Percutaneous Approach (ICD-10-PCS; principal; 2018-06-22)
PROC: 3E0333Z Introduction of Anti-inflammatory into Peripheral Vein, Percutaneous Approach (ICD-10-PCS; 2018-06-22)
PROC: BT43ZZZ Ultrasonography of Bilateral Kidneys (ICD-10-PCS; 2018-06-22)
DX: M54.89 Other dorsalgia (principal); I10 Essential (primary) hypertension; Z87.442 Personal history of urinary calculi
CPT/HCPCS: 36415; 74176-TC; 76775; 80053; 81003; 85025; 87086; 96374; 96375; 99281-25; J0131; J7030

== ENCOUNTER 2019-01-22 15:30 | Emergency (ER) | payer OTHER ==
[2019-01-22 15:49] VITALS: BMI 25.3
[2019-01-22] MEDS ORDERED: SODIUM CHLORIDE 1,000 ML IV STA (16:25)
[2019-01-22] MEDS ORDERED: IBUPROFEN 400 MG TABLET (FP) PO ONE ×2 (16:27→16:43)
[2019-01-22] MEDS ORDERED: IPRATROPIUM BR 0.02% 0.5 MG/2.5 ML VIAL.NEB. NEB ONE ×2 (16:29→16:42)
[2019-01-22] MEDS ORDERED: guaiFENesin/D-METHORPHAN HB 10 ML UNIT-DOSE CUPS PO ONE (16:35)
--- NOTE | 2019-01-22 16:36 | PDOC ---
History of Present Illness - General Chief Complaint: Shortness of Breath Stated Complaint: SOB,CHEST PAIN Time Seen by Provider: 01/22/19 16:18 History Source: Patient Exam Limitations: No Limitations - History of Present Illness Initial Comments: Alissa Acosta is a 63 yo F w a pmh of HTN, HLD, asthma, kidney stones, pylonephritis, and recurrent UTI's who presents to the [facility] er with her daughter because she lost her voice and has been coughing incessantly since Saturday. The patient states her cough is productive of whitish green sputum. She did not receive a flu shot this year. The patient states she has chest pain when she coughs but not at rest or with exertion. She denies any nausea, vomiting or diaphoresis. She has been taking a good amount of mucinex ( Guafenisin) with minimal relief of her cough. Patient denies fevers, chills, abdominal pain, body aches, SOB, difficulty breathing, dysuria, frequency, or urgency. PCP: Jay Jay Price PSH: Tonsillectomy, appendectomy, hysterectomy, carpal tunnel release, hernia repair, left trigger finger release Allergies: Morphine, sulfa, multiple fruits and nuts Social Hx: Denies smoking, drinking, or other substance usage Past History - Past Medical History Allergies/Adverse Reactions: Allergies Allergy/AdvReac Type Severity Reaction Status Date / Time celery Allergy Severe Verified 01/22/19 15:54 peach Allergy Severe THROAT Verified 01/22/19 15:54 CLOSES morphine Allergy Intermediate Itching Verified 01/22/19 15:54 Sulfa (Sulfonamide Allergy Mild Verified 01/22/19 15:54 Antibiotics) APPLES Allergy Severe Uncoded 01/22/19 15:54 CARROTS Allergy Severe Uncoded 01/22/19 15:54 STRAWBERRIES Allergy Severe Uncoded 01/22/19 15:54 Home Medications: Ambulatory Orders Alprazolam [Xanax] 0.5 mg PO TID 06/03/17 Aripiprazole [Abilify] 5 mg PO HS 06/03/17 Zolpidem Tartrate [Ambien] 10 mg PO HS 02/10/18 Enalapril Maleate [Vasotec -] 10 mg PO DAILY 01/22/19 Ipratropium 0.02% Nebulizer [Atrovent 0.02% Nebulizer -] 1 neb NEB PRN 5 Days # 10 vial 01/22/19 Ipratropium 0.02% Nebulizer [Atrovent 0.02% Nebulizer -] 5 amp NEB PRN 5 Days # 5 amp 01/22/19 Anemia: No Asthma: Yes Cancer: No Cardiac Disorders: No CVA: No COPD: No CHF: No DVT: No Dementia: No Diabetes: No GI Disorders: Yes (gastritis) Disorders: Yes (kidney stones X5 , UTI PRESENT) HTN: Yes Hypercholesterolemia: Yes Kidney Stones: Yes Liver Disease: No Seizures: No Thyroid Disease: Yes - Surgical History Abdominal Surgery: Yes (HERNIA) Appendectomy: Yes Cardiac Surgery: No Cholecystectomy: Yes Lung Surgery: No Neurologic Surgery: No Orthopedic Surgery: Yes (CTR RIGHT AND LEFT HAND, LEFT TRIGGER FINGER RELEASE) - Reproductive History Cervical CA: No Dysfunctional Uterine Bleeding: No Ectopic : No Endometrial CA: No Polycystic Ovaries: No Tubal Ligation: No - Immunization History Immunization Up to Date: No - Psycho Social/Smoking Cessation Hx Smoking History: Never smoked Have you smoked in the past 12 months: No Number of Cigarettes Smoked Daily: 0 If you are a former smoker, when did you quit?: 1995 Information on smoking cessation initiated: No Hx Alcohol Use: No Drug/Substance Use Hx: No Substance Use Type: None Hx Substance Use Treatment: No Review of Systems - Review of Systems Able to Perform ROS?: Yes Comments:: CONSTITUTIONAL: Absent: fever, no chills, no fatigue EYES: Absent: visual changes ENT: Present: Sore throat Absent: ear pain CARDIOVASCULAR: Absent: chest pain, no palpitations RESPIRATORY: Present: Cough Absent: no SOB GI: Absent: abdominal pain, no nausea, no vomiting, no constipation, no diarrhea GENITOURINARY: Absent: dysuria, no frequency, no hematuria MUSKULOSKELETAL: Absent: back pain, no arthralgia, no myalgia SKIN: Absent: rash NEURO: Absent: headache *Physical Exam - Vital Signs Last Vital Signs Temp Pulse Resp BP Pulse Ox 98.3 F 71 19 110/72 97 01/22/19 15:40 01/22/19 15:45 01/22/19 15:40 01/22/19 15:40 01/22/19 15:45 - Physical Exam Comments: GENERAL: Well-appearing, well-nourished. No apparent distress. HEENT: + painless adenopathy. There is no oropharyngeal erythema. Normocephalic, atraumatic. PERRL, EOM intact. CARDIOVASCULAR: Normal S1, S2. Regular rate and rhythm. PULMONARY: No evidence of respiratory distress. Lungs clear to auscultation bilaterally. No wheezing, rales or rhonchi. ABDOMEN: Soft, non-distended, non-tender. EXTREMITIES: Normal ROM in all four extremities. No gross deformities. SKIN: Warm, dry. No rash NEUROLOGICAL: No focal neurological deficits. ED Treatment Course - LABORATORY CBC & Chemistry Diagram: 01/22/19 16:40 01/22/19 16:40 - RADIOLOGY Radiology Studies Ordered: Category Date Time Status CHEST PA & LAT [RAD] Stat Radiology 01/22/19 16:25 Ordered Medical Decision Making - Medical Decision Making Alissa Acosta is a 63 yo F w a pmh of HTN, HLD, asthma, kidney stones, pylonephritis, and recurrent UTI's who presents to the [facility] er with her daughter because she lost her voice and has been coughing incessantly since Saturday. The patient states her cough is productive of whitish green sputum. She did not receive a flu shot this year. The patient states she has chest pain when she coughs but not at rest or with exertion. She denies any nausea, vomiting or diaphoresis. She has been taking a good amount of mucinex ( Guafenisin) with minimal relief of her cough. Patient denies fevers, chills, abdominal pain, body aches, SOB, difficulty breathing, dysuria, frequency, or urgency. Vital Signs Temp Pulse Resp BP Pulse Ox 98.3 F 71 19 110/72 97 01/22/19 15:40 01/22/19 15:45 01/22/19 15:40 01/22/19 15:40 01/22/19 15:45 DDx IBNLT: Asthma, upper airway cough syndrome, GERD, URI, bronchitis, laryngitis, PNA, ACS/[place], pneumothorax, electrolyte/metabolic disturbance, influenza, strep Plan: Labs, CXR, symptomatic treatment, IV hydration, CXR, re-assess. Labs:Unremarkable CXR: No acute pathology Re-assessment: Patient feels much better after medications and requests to be discharged Disposition: Home with PCP fu and ipratropium to pharmacy for symtom relief. - Strict return precautions discussed. Discharge - Discharge Information Problems reviewed: Yes Clinical Impression/Diagnosis: Cough, Sore throat Condition: Improved Disposition: HOME - Admission No - Additional Discharge Information Prescriptions: Ipratropium 0.02% Nebulizer [Atrovent 0.02% Nebulizer -] 5 amp NEB PRN 5 Days # 5 amp - Follow up/Referral Referrals: Kristen Price MD [Primary Care Provider] - - Patient Discharge Instructions Patient Printed Discharge Instructions: Cough (Alternative Therapy), Cough, Guaifenesin Additional Instructions: You came into the ER with a cough and a sore throat. We gave you some medications which made you feel better. We are sending these medications to your pharmacy. Please make sure to go and pick them up. We looked at your blood, did a chest x-ray, and an EKG and found no abnormalities. Please make sure to schedule a follow up appointment with your primary care doctor in the next 3 to 5 days to make sure your cough is getting better and your throat doesn't hurt anymore. Come back to the ER immediately if you experience any worsening of your chest pain, a fever, have shortness of breath or any other new or worsening concerns. thank you for coming to the [facility] ER. We hope you feel better soon! Print Language: SAMI - Post Discharge Activity
[2019-01-22] MEDS ORDERED: guaiFENesin/CODEINE 5 ML UNIT-DOSE CUPS PO ONE (16:42)
[2019-01-22 16:49] LABS: BASO % 0.9 % (0-2.0); EOS % 3.2 % (0-4.5); HEMATOCRIT 36.7 % (32.4-45.2); HEMOGLOBIN 12.2 GM/dL (10.7-15.3); LYMPH % 34.3 % (8-40); MCH 27.7 pg (25.7-33.7); MCHC 33.4 g/dl (32.0-36.0); MEAN PLT VOLUME 8.8 fl (7.5-11.1); MONO % 6.7 % (3.8-10.2); NEUT % 54.9 % (42.8-82.8); PLATELET COUNT 281 K/MM3 (134-434); RBC 4.42 M/mm3 (3.60-5.2); RDW 13.9 % (11.6-15.6); WHITE BLOOD COUNT 6.9 K/mm3 (4.0-10.0)
[2019-01-22 17:27] LABS: ALBUMIN 3.5 g/dl (3.4-5.0); ALK PHOS 86 U/L (45-117); ANION GAP 5 MMOL/L (8-16); BILIRUBIN,TOTAL 0.1 mg/dL (0.2-1); BLOOD UREA NITROGEN 12.8 mg/dL (7-18); CHLORIDE 105 mmol/L (98-107); CO2 28 mmol/L (21-32); CREATININE 0.6 mg/dL (0.55-1.3); GLUCOSE,RANDOM 100 mg/dL (74-106); POTASSIUM 4.4 mmol/L (3.5-5.1); SGOT/AST 21 U/L (15-37); SGPT/ALT 19 U/L (13-61); SODIUM 138 mmol/L (136-145); TOT PROT 7.1 g/dl (6.4-8.2)
[2019-01-22 17:58] VITALS: BP 160/82; PULSE 66; TEMP 98.6
--- NOTE | 2019-01-22 18:04 | PDOC ---
Attending Attestation - Resident Resident Name: Jp Scott - ED Attending Attestation I have performed the following: I have examined & evaluated the patient, The case was reviewed & discussed with the resident, I agree w/resident's findings & plan, Exceptions are as noted - HPI HPI: 01/22/19 18:13 Ms. Acosta is a 63 yo F h/o HTN, HLD, asthma, kidney stones, pylonephritis, and recurrent UTI's who presents to the ER with her daughter due to URI symptoms which have been present for the past few days Most significantly, she is coughing (last night could not sleep due to cough) Cough is productive of whitish green sputum. Chest pain is associated with cough No nausea, vomiting Daughter has given her Mucinex with minimal relief No high fevers, no myalgias or arthralgias No rash No dysuria, frequency, or urgency. Was seen by PCP two days ago, did not mention this illness Denies tobacco use PCP: Kristen Price PSH: Tonsillectomy, appendectomy, hysterectomy, carpal tunnel release, hernia repair, left trigger finger release - Physicial Exam PE: 01/22/19 18:17 GENERAL: The patient is in no acute distress, pharyngitis. ENT: Ears normal, nares patent, oropharynx clear without exudates. Moist mucous membranes. No tonsillar enlargement, no pharyngeal erythema, exudates NECK: Normal range of motion, supple, no nuchal rigidity, (+) LAD LUNGS: Breath sounds equal, clear to auscultation bilaterally. No wheezes, and no crackles. HEART: Regular rate and rhythm, normal S1 and S2 without murmur, rub or gallop. ABDOMEN: Soft, nontender, normoactive bowel sounds. EXTREMITIES: Normal range of motion, no edema. NEUROLOGICAL: Cranial nerves II through XII grossly intact. Normal speech. No focal neurological deficits. SKIN: Warm, Dry, normal turgor, no rashes or lesions noted. - Medical Decision Making 01/22/19 18:06 Laboratory Tests 01/22/19 01/22/19 01/22/19 16:40 16:40 16:40 WBC 6.9 Hgb 12.2 Hct 36.7 Plt Count 281 D BUN 12.8 Creatinine 0.6 Troponin I < 0.02 Influenza A (Rapid) Negative Influenza B (Rapid) Negative Group A Strep Rapid 01/22/19 17:33 WBC Hgb Hct Plt Count BUN Creatinine Troponin I Influenza A (Rapid) Influenza B (Rapid) Group A Strep Rapid Negative 01/22/19 18:18 Chest x-ray: No acute consolidation, pleural effusion, Will discharge with treatment for upper respiratory infection 01/22/19 18:19 Upon reassessment, patient states that she has some stomach discomfort Will give Maalox and Pepcid as patient has a history of gastritis She is currently drinking tea We will reassess Symptoms have resolved Will discharge to home Symptoms improved with neb Possibly URI, initial presentation Reactive airway, initial presentation
[2019-01-22] MEDS ORDERED: MAG HYDROX/AL HYDROX/SIMETH 30 ML UNIT-DOSE CUP PO ONE (18:11)
[2019-01-22] MEDS ORDERED: FAMOTIDINE 20 MG/50 ML IVPB 20 MG/50 ML MG IVPB ONE ×2 (18:11→18:17)
[2019-01-22] MEDS ORDERED: SODIUM CHLORIDE 0.9% 500 ML INFUS.BAG IV ONE (18:12)
[2019-01-22] MEDS ORDERED: MAG HYDROX/AL HYDROX/SIMETH 30 ML UNIT-DOSE CUP ONE (18:16)
[2019-01-22] MEDS ORDERED: LIDOCAINE VISCOUS 2% ORAL/TOP 20 ML UNIT-DOSE CUP MM ONE (18:19)
[2019-01-22] MEDS ORDERED: LIDOCAINE VISCOUS 2% ORAL/TOP 20 ML UNIT-DOSE CUP ONE (18:21)
--- NOTE | 2019-01-23 14:18 | EKG ---
Test Reason : Blood Pressure : / mmHG Vent. Rate : 071 BPM Atrial Rate : 071 BPM P-R Int : 170 ms QRS Dur : 082 ms QT Int : 388 ms P-R-T Axes : 034 017 034 degrees QTc Int : 421 ms NORMAL SINUS RHYTHM NORMAL ECG WHEN COMPARED WITH ECG OF 25-SEP-2017 17:29, [place] INTERVAL HAS DECREASED Confirmed by MARCO A MICHELE MD ([id number]) on 01/23/2019 2:18:30 PM Referred By: Confirmed By:MARCO A MICHELE MD
== END 2019-01-22 19:04 | disposition home or self-care (01) ==
LOC: JER 15:30
PROC: 3E033GC Introduction of Other Therapeutic Substance into Peripheral Vein, Percutaneous Approach (ICD-10-PCS; principal; 2019-01-22)
PROC: 3E0337Z Introduction of Electrolytic and Water Balance Substance into Peripheral Vein, Percutaneous Approach (ICD-10-PCS; 2019-01-22)
PROC: 3E0F7GC Introduction of Other Therapeutic Substance into Respiratory Tract, Via Natural or Artificial Opening (ICD-10-PCS; 2019-01-22)
DX: J02.9 Acute pharyngitis, unspecified (principal); R05 Cough; Z88.2 Allergy status to sulfonamides; Z88.6 Allergy status to analgesic agent; Z91.018 Allergy to other foods; I10 Essential (primary) hypertension; E78.5 Hyperlipidemia, unspecified; J45.909 Unspecified asthma, uncomplicated; N20.0 Calculus of kidney; N12 Tubulo-interstitial nephritis, not specified as acute or chronic
CPT/HCPCS: 36415; 71046-TC-FY; 80053; 83735; 84484; 85025; 87070; 87804; 87880; 93005; 93010; 99284-25; J7030

== ENCOUNTER 2019-10-30 17:29 | Emergency (ER) | payer OTHER ==
[2019-10-30] MEDS ORDERED: ACETAMINOPHEN 500 MG TABLET (FP) PO ONE (17:54)
--- NOTE | 2019-10-30 18:00 | PDOC ---
History of Present Illness - General Chief Complaint: Injury Stated Complaint: FALL POSSIBLE WRIST FRACTURE Time Seen by Provider: 10/30/19 17:49 History Source: Patient Exam Limitations: No Limitations - History of Present Illness Initial Comments: 10/30/19 17:55 63-year-old female past medical history of hypertension depression presented to the ED after FOOSH. Patient states that she was going up the stairs with a shopping cart tripped fell and braced her fall with her outstretched left hand. Patient states she also hit her head on the stairs with loss of consciousness. Patient states she did not syncopize before the fall and it was mechanical in nature. Patient is also complaining of neck pain worse with range of motion. Pt otherwise denies: fevers, chills, syncope, lightheadedness, dizziness, headaches, changes in vision, changes in hearing, chest pain, shortness of breath, palpitations, back pain, abdominal pain, nausea, vomiting, diarrhea, constipation, melena. Past History - Medical History Allergies/Adverse Reactions: Allergies Allergy/AdvReac Type Severity Reaction Status Date / Time celery Allergy Severe Verified 01/22/19 15:54 peach Allergy Severe THROAT Verified 01/22/19 15:54 CLOSES morphine Allergy Intermediate Itching Verified 01/22/19 15:54 Sulfa (Sulfonamide Allergy Mild Verified 01/22/19 15:54 Antibiotics) APPLES Allergy Severe Uncoded 01/22/19 15:54 CARROTS Allergy Severe Uncoded 01/22/19 15:54 STRAWBERRIES Allergy Severe Uncoded 01/22/19 15:54 Home Medications: Ambulatory Orders Alprazolam [Xanax] 0.5 mg PO TID 06/03/17 Aripiprazole [Abilify] 5 mg PO HS 06/03/17 Zolpidem Tartrate [Ambien] 10 mg PO HS 02/10/18 Enalapril Maleate [Vasotec -] 10 mg PO DAILY 01/22/19 Ipratropium 0.02% Nebulizer [Atrovent 0.02% Nebulizer -] 1 neb NEB PRN 5 Days #10 vial 01/22/19 Ipratropium 0.02% Nebulizer [Atrovent 0.02% Nebulizer -] 5 amp NEB PRN 5 Days #5 amp 01/22/19 Ibuprofen [Ibu] 600 mg PO TID 10 Days #30 tablet 10/30/19 Oxycodone HCl/Acetaminophen [Percocet 5-325 mg Tablet] 1 tab PO Q6H #15 tablet MDD 3 10/30/19 Anemia: No Asthma: Yes Cancer: No Cardiac Disorders: No CVA: No COPD: No CHF: No DVT: No Dementia: No Diabetes: No GI Disorders: Yes (gastritis) Disorders: Yes (kidney stones X5 , UTI PRESENT) HTN: Yes Hypercholesterolemia: Yes Kidney Stones: Yes Liver Disease: No Seizures: No Thyroid Disease: Yes - Surgical History Abdominal Surgery: Yes (HERNIA) Appendectomy: Yes Cardiac Surgery: No Cholecystectomy: Yes Lung Surgery: No Neurologic Surgery: No Orthopedic Surgery: Yes (CTR RIGHT AND LEFT HAND, LEFT TRIGGER FINGER RELEASE) - Reproductive History Cervical CA: No Dysfunctional Uterine Bleeding: No Ectopic : No Endometrial CA: No Polycystic Ovaries: No Tubal Ligation: No - Immunization History Immunization Up to Date: No - Psycho-Social/Smoking History Smoking History: Never smoked Have you smoked in the past 12 months: No Number of Cigarettes Smoked Daily: 0 If you are a former smoker, when did you quit?: 1995 *Physical Exam - Physical Exam 10/30/19 17:58 Gen: AAOx 3, no acute distress, comfortable, no signs of respiratory distress HENT: normocephalic with .5cm laceration to bottom of chin with active bleeding. Nasal mucosa without erythema. Oropharynx without erythema or exudates. Mucous membranes moist. EYES: PERRL, EOM intact, conjunctiva pink NECK: supple; trachea midline; no JVD, no lymphadenopathy, or thyromegaly CV: RRR no murmurs, gallops, or rubs. CHEST: CTA b/l no wheezing, rales or rhonchi ABD: +BS/ND. no TTP; soft, no rebound, no guarding EXTREMITY: no cyanosis or erythema. 2+ dorsalis pedis, posterior tibial, and radial pulse. No pedal edema; no calf swelling or tenderness SKIN: no rash, warm and dry, no diaphoresis. Multiple superficial abrasions to bilateral hands without active bleeding HEME: no purpura or ecchymosis NEURO: normal speech, CN II-XII intact, sensation intact, normal gait, able to tip toe and heel walk, romberg and pronator drift absent, no cerebellar deficits, normal finger to nose, heel to rojas, rapid alternating movements, no tremor, no dysmetria MS: 5/5 strength in all extremities, FROM intact in all extremities except Left Wrist Left wrist: ttp with swelling and obvious deformity 2+ radial pulse sensation intact, dec ROM 2/2 pain, L hand FROM 10/30/19 21:49 Procedures - Splinting Splint Location: Left: Wrist Pre-Proc Neuro Vasc Exam: normal Hand-Made Type: orthoglass Splint Type: Yes: Sugar Tong Post-Proc Neuro Vasc Exam: normal Joseph Bandage: 3" Sling: No Complications: No Post splint xray: Yes (mild reduction acheived ) Good repositioning: No ED Treatment Course - RADIOLOGY Radiology Studies Ordered: Category Date Time Status CERVICAL SPINE CT W/O CONTR [CT] Stat CT Scan 10/30/19 17:[address] WITHOUT CONTRAST [CT] Stat CT Scan 10/30/19 17:53 Ordered WRIST W/HAND-LEFT* [RAD] Stat Radiology 10/30/19 17:53 Ordered Medical Decision Making - Medical Decision Making 10/30/19 18:00 63-year-old female status post fall VSS Due to loss of consciousness will obtain CT head and cervical spine without contrast as well as x-ray of left wrist and hand Will update tetanus Will repair chin laceration with sutures Will reassess based on results Tetanus updated Chin laceration repaired by resident please refer to procedure note CT head and cervical spine negative for any acute pathology X-ray left wrist shows acute distal radius fracture with volar displacement Informed consent was obtained a hematoma block was performed using 1% lidocaine without epinephrine the wrist was reduced using closed reduction methods and placed in a sugar tong splint Patient was neurovascularly intact before and after procedure and tolerated the procedure well. Postreduction x-rays still show a displaced comminuted distal radius fracture without full close reduction. Patient to follow-up with orthopedics without fail both Dr. Collado and Gabrilele are aware of patient and are willing to see patient in office. Patient sent 3 days worth of Percocet for pain Patient was instructed not to drive or operate heavy machinery while taking Percocet. The patient was also instructed not to take the medication with any other sedating medications and not to drink alcohol while taking the medication. Pt appears well and is safe and stable for discharge with strict return precautions including signs and symptoms requring immediate return to the ED Supportive care instructions explained and given to pt. Reasons to return emergently to ER explained and given. Importance of follow up with PMD and other specialists as indicated stressed to pt. Pt verbalized understanding of instructions. Pt to follow up with PMD in 2 days. Discharge - Discharge Information Problems reviewed: Yes Clinical Impression/Diagnosis: Wrist fracture, left Qualifiers: Encounter type: initial encounter Fracture type: closed Qualified Code(s): S62.102A - Fracture of unspecified carpal bone, left wrist, initial encounter for closed fracture Condition: Stable Disposition: HOME - Additional Discharge Information Prescriptions: Ibuprofen [Ibu] 600 mg PO TID 10 Days #30 tablet Oxycodone HCl/Acetaminophen [Percocet 5-325 mg Tablet] 1 tab PO Q6H #15 tablet MDD 3 - Follow up/Referral Referrals: Kristen Price MD [Primary Care Provider] - James Menjivar MD [Staff Physician] - Yunior Collado DO [Staff Physician] - Slava Anthony MD [Staff Physician] - - Patient Discharge Instructions Patient Printed Discharge Instructions: DI for Wrist Fracture Additional Instructions: YOU MUST FOLLOW UP WITH ORTHOPEDICS - Post Discharge Activity
[2019-10-30 18:39] VITALS: BP 134/80; PULSE 87; TEMP 98.1; BMI 28.2
[2019-10-30] MEDS ORDERED: ACETAMINOPHEN 325 MG TABLET (FP) ONE (19:18)
[2019-10-30] MEDS ORDERED: ACETAMINOPHEN 325 MG TABLET (FP) PO ONE (19:20)
[2019-10-30] MEDS ORDERED: DIPHTH,PERTUSS(ACELL),TET 0.5 ML DISP.SYRIN IM ONE ×2 (19:22→19:27)
--- NOTE | 2019-10-30 20:09 | PDOC ---
*Physical Exam - Vital Signs Last Vital Signs Temp Pulse Resp BP Pulse Ox 98.1 F 87 20 134/80 99 10/30/19 18:36 10/30/19 18:36 10/30/19 18:36 10/30/19 18:36 10/30/19 18:36 ED Treatment Course - Medications Given in the ED: ED Medications Discontinued Medications Generic Name Dose Route Start Last Admin Trade Name Donald PRN Reason Stop Dose Admin Acetaminophen 975 mg 10/30/19 17:54 10/30/19 19:25 Tylenol - PO 10/30/19 17:55 Not Given ONCE ONE Acetaminophen 650 mg 10/30/19 19:20 10/30/19 19:25 Tylenol - PO 10/30/19 19:21 650 mg ONCE ONE Administration Diphtheria/Tetanus/Acell Pertussis 0.5 ml 10/30/19 19:22 10/30/19 19:35 Boostrix - IM 10/30/19 19:23 0.5 ml .ONCE ONE Administration Oxycodone/Acetaminophen 1 combo 10/30/19 19:13 10/30/19 19:36 Percocet 5/325 - PO 10/30/19 19:14 1 combo ONCE ONE Administration Discharge - Discharge Information Problems reviewed: Yes Clinical Impression/Diagnosis: Wrist fracture, left Qualifiers: Encounter type: initial encounter Fracture type: closed Qualified Code(s): S62.102A - Fracture of unspecified carpal bone, left wrist, initial encounter for closed fracture Condition: Stable Disposition: HOME - Additional Discharge Information Prescriptions: Ibuprofen [Ibu] 600 mg PO TID 10 Days #30 tablet Oxycodone HCl/Acetaminophen [Percocet 5-325 mg Tablet] 1 tab PO Q6H #15 tablet MDD 3 - Follow up/Referral Referrals: Slava Anthony MD [Staff Physician] - James Menjivar MD [Staff Physician] - Kristen Price MD [Primary Care Provider] - Yunior Collado DO [Staff Physician] - - Patient Discharge Instructions Patient Printed Discharge Instructions: DI for Wrist Fracture Additional Instructions: YOU MUST FOLLOW UP WITH ORTHOPEDICS - Post Discharge Activity Procedures - Laceration/Wound Repair Lower Medial Jaw Wound Length: to 2.5 cm Wound Explored: clean Wound's Depth, Shape: linear Irrigated w/ Saline: Yes Betadine Prep: Yes Anesthesia: 1% Lidocaine Amount of Anesthetic (ccs): 2 Wound Repaired With: Sutures Suture Size/Type: 5:0, nylon Number of Sutures: 2 Layer Closure: No Sterile Dressing Applied: No Progress: Pt tolerated procedure well. Hemostasis achieved.
== END 2019-10-30 21:25 | disposition home or self-care (01) ==
LOC: JER 17:29
PROC: 2W3DX1Z Immobilization of Left Lower Arm using Splint (ICD-10-PCS; principal; 2019-10-30)
PROC: 3E0234Z Introduction of Serum, Toxoid and Vaccine into Muscle, Percutaneous Approach (ICD-10-PCS; 2019-10-30)
DX: S62.102A Fracture of unspecified carpal bone, left wrist, initial encounter for closed fracture (principal)
CPT/HCPCS: 70450-TC; 72125-TC; 73110-TC-LT-FY; 73130-TC-LT-FY; 90715; 99285-25

== ENCOUNTER 2019-11-16 07:45 | Day surgery (SDC) | payer OTHER ==
[2019-11-13 18:04] VITALS: BMI 28.2
--- OUTSIDE RECORDS SUMMARY | 2019-11-16 08:03 | XMS ---
:1955 Author Organization [facility] Support Name Relationship Address Phone UE, UNEMPLOYED Unavailable Unavailable Unavailable UE Unavailable Unavailable Unavailable ADOLFO VILLAVICENCIO DAUGHTER [address] [phone] [place] [address] ADOLFO VILLAVICENCIO Child [address] [place] [address] Re-disclosure Warning The records that you are about to access may contain information from federally- assisted alcohol or drug abuse programs. If such information is present, then the following federally mandated warning applies: This information has been disclosed to you from records protected by federal confidentiality rules (42 CFR part 2). The federal rules prohibit you from making any further disclosure of this information unless further disclosure is expressly permitted by the written consent of the person to whom it pertains or as otherwise permitted by 42 CFR part 2. A general authorization for the release of medical or other information is NOT sufficient for this purpose. The Federal rules restrict any use of the information to criminally investigate or prosecute any alcohol or drug abuse patient.The records that you are about to access may contain highly sensitive health information, the redisclosure of which is protected by Article 27-F of the [facility] Public Health law. If you continue you may haveaccess to information: Regarding HIV / AIDS; Provided by facilities licensed or operated by the [facility] Office of Mental Health; or Provided by the [facility] Office for People With Developmental Disabilities. If such information is present, then the following [facility] mandated warning applies: This information has been disclosed to you from confidential records which are protected by state law. State law prohibits you from making any further disclosure of this information without the specific written consent of the person to whom it pertains, or as otherwise permitted by law. Any unauthorized further disclosure in violation of state law may result in a fine or penitentiary sentence or both. A general authorization for the release of medical or other information is NOT sufficient authorization for further disclosure. Insurance Providers Payer name Policy type Policy ID Covered Covered constitution party's Policy P boyd / Coverage constitution party ID relationship to Song Inf ormation type song ESME [id number] SP [id number] HEALTH NON CAP MEDICAID [id number] SP [id number] ESME CARE [id number] [id number] Results ID Date Data Source [id number] 11/12/2019 01:15:00 PM EDT [facility] Name Value Range Interpretation Description Data Sup porting Code Source(s) Document(s ) SARS [facility] coronavirus 2 RNA This lab was ordered by [facility] and reported by [facility]. ID Date Data Source [id number] 09/29/2019 12:00:00 AM EDT [facility] Name Value Range Interpretation Code Description Data Marcia rce(s) Supporting Document(s ) 2019-nCoV [facility] RNA XXX USMAN+probe- Imp This lab was ordered by [facility] [place] reported by [facility]. Procedure
--- NOTE | 2019-11-16 09:07 | HP ---
History & Physical Update - Physical Physical: No Change - Assessment Assessment: No Change - Plan Plan: No Change
--- NOTE | 2019-11-16 09:08 | OPR ---
DATE OF SURGERY: 11/16/2019 PREOPERATIVE DIAGNOSIS: Left comminuted intra-articular displaced distal radius fracture. POSTOPERATIVE DIAGNOSIS: Left comminuted intra-articular displaced distal radius fracture. OPERATIVE PROCEDURE: 1. Open reduction, internal fixation of the left intra-articular distal radius fracture, three or more fragments 2. Left brachioradialis tenotomy SURGEON: Yunior Collado DO ENGINEER GEOPHYSICAL LABORATORY: Dariusz Almeida DO ANESTHESIA: Regional with sedation COMPLICATIONS: None ESTIMATED BLOOD LOSS: Minimal TOURNIQUET TIME: 55 mins INDICATION FOR PROCEDURE: The patient is a 63 year old female with the above findings, indicated for operative treatment. Risks, benefits, and alternatives were discussed with the patient and her daughter via phone at length. Proper informed consent was obtained. PROCEDURE: The patient was brought to the operating room and placed on the operating table in the supine position. The operative upper extremity was prepped and draped in the usual sterile fashion. The extremity was exsanguinated with an Esmarch and tourniquet on the upper arm was inflated. An incision was made on the volar aspect of the wrist over the distal flexor carpi radialis tendon. Dissection was taken through the subcutaneous tissues to the tendon sheath. The tendon sheath was incised longitudinally and the tendon was retracted. The floor of the sheath was then incised longitudinally. Distal fascia was also incised. The pronator was exposed. The fracture was seen disrupting a portion of the pronator. The pronator was detached radially and distally and reflected off of the volar surface of the distal radius. The fracture was then reduced. Manipulation of all fragments produced excellent reduction of the fracture. A volar distal radial plate was then applied to the bone and positioned under the image intensifier. A K-wire was placed through the plate to secure it to the bone. A proximal screw was then placed to secure the plate. Distally, locking screws were placed through the plate into the distal fragment. Each of these was placed under fluoroscopic guidance. The radial-most screw was placed at the styloid. The ulnar-most screw captured dorsal ulnar corner of the distal radius. The K-wire was then removed. Two additional proximal screws were placed through the plate. Reduction of the fracture was near anatomic. Position of the plate and all screws were visualized in multiple projections with the image intensifier. This provided secure and stable fixation, confirmed radiographically as well as visually. The distal radial ulnar joints and scapholunate intervals were stressed and found to be stable. Full range of motion was achieved in both pronation and supination, as well as flexion and extension. The wound was irrigated and repaired in layers using 2-0 Vicryl, and 3-0 Nylon sutures. Xeroform and sterile 4x4 dressings were applied, and a volar splint in natural wrist position was placed. The patient was reversed from anesthesia and brought to the recovery room in stable condition. She tolerated the procedure well. Dariusz Almeida DO was first-physician assistant surgery during the case as there was no qualified resident field account director available. He was integral during the case for holding reduction while I placed the hardware for fixation. This would not have been possible without an operative physician assistant surgery. POSTOPERATIVE PLAN: 1. Pain Control 2. Ice/Elevate operative extremity 3. Keep dressings clean/dry at all times 4. Vitamin C 500mg QD PO x 50 days 5. Follow up in my office in 10-14 days for wound check and dressing change. 6. We will have her start physical therapy. Yunior Collado DO
[2019-11-16] MEDS ORDERED: ROPIVACAINE HCL 0.5% 30ML VIAL ONE (09:31)
[2019-11-16] MEDS ORDERED: MIDAZOLAM HCL 2 MG/2 ML SINGLE DOSE VIAL ONE (09:31)
[2019-11-16] MEDS ORDERED: PROPOFOL 20 ML ONE ×2 (09:41→10:55)
[2019-11-16] MEDS ORDERED: BUPIVACAINE HCL/PF 0.5% (5MG/ML) 10 ML VIAL ONE (10:21)
[2019-11-16] MEDS ORDERED: ceFAZolin SODIUM 1 GM VIAL ONE (10:25)
[2019-11-16] MEDS ORDERED: BUPIVACAINE HCL/PF 0.5% (5 MG/ML) 30 ML VIAL IJ ONE (11:48)
[2019-11-16] MEDS ORDERED: ONDANSETRON 4 MG/2 ML VIAL ONE (12:03)
[2019-11-16] MEDS ORDERED: DEXAMETHASONE SOD PHOSPHATE 4 MG/1 ML VIAL ONE (12:03)
[2019-11-16] MEDS ORDERED: ONDANSETRON 4 MG/2 ML VIAL IVPUSH PRN (12:11)
[2019-11-16] MEDS ORDERED: oxyCODONE HCL 5 MG TABLET PO PRN ×2 (12:11)
[2019-11-16] MEDS ORDERED: LACTATED RINGERS SOLUTION 1,000 ML IV SCH (12:15)
[2019-11-16 12:33] VITALS: TEMP 97.9
[2019-11-16 13:18] VITALS: BP 112/78; PULSE 70
== END 2019-11-16 13:18 | disposition home or self-care (01) ==
LOC: FASU 07:45
PROVIDERS: ATTEND Orthopaedic Surgery Sports Medicine
PROC: 0PSJ04Z Reposition Left Radius with Internal Fixation Device, Open Approach (ICD-10-PCS; principal; 2019-11-16 10:42)
DX: S52.572A Other intraarticular fracture of lower end of left radius, initial encounter for closed fracture (principal); X58.XXXA Exposure to other specified factors, initial encounter; Y93.9 Activity, unspecified; Y92.9 Unspecified place or not applicable
CPT/HCPCS: 25609; C1713; 73110-TC-LT-FY